=== PATIENT | male | born 1960 ===

== ENCOUNTER → 2020-11-29 09:17 | Outpatient (BNVA) | payer OTHER, SELFPAY | PROVIDERS: Visit Provider Urology ==

== ENCOUNTER → 2021-01-16 09:01 | Outpatient (BNVA) | payer OTHER, SELFPAY | PROVIDERS: Visit Provider Urology ==

== ENCOUNTER → 2022-01-01 10:52 | Outpatient (BNVA) | payer OTHER, SELFPAY | PROVIDERS: PCP Family Medicine; Visit Provider Urology | DX: Z13.89 Encounter for screening for other disorder (principal) ==

== ENCOUNTER → 2022-08-13 11:44 | Outpatient (BNVA) | payer OTHER, SELFPAY | PROVIDERS: PCP Family Medicine; Visit Provider Urology ==

== ENCOUNTER → 2022-11-17 09:16 | Outpatient (BNVA) | payer OTHER, SELFPAY | PROVIDERS: PCP Family Medicine; Visit Provider Urology ==

== ENCOUNTER 2023-01-18 08:27 | Day surgery (SDC) | payer OTHER, SELFPAY ==
[2023-01-14 10:55] VITALS: BMI 26.6
--- NOTE | 2023-01-15 12:13 | HO.ANESPROP2 ---
Documented by User: Rhonda Aparicio NP 01/15/23 12:14 HPI - Anesthesia Eval Consult details Narrative: 62yo M for Targeted Prostate Needle Biopsy PMFSH Active Problems Active Problems: All Active Problems (Updated 01/14/23 @ 10:55 by Patricia Garrett RN) Erectile dysfunction due to arterial insufficiency (Acute) Prostatitis (Acute) Elevated PSA (Acute) Bladder neck obstruction (Acute) Past Medical History Medical History Anal fissure Arthritis Bladder neck obstruction BPH (benign prostatic hyperplasia) Ejaculatory disorder Elevated PSA HX: anticoagulation Hypercholesterolemia Hyperlipidemia Incomplete emptying of bladder Pericarditis Sleep apnea Weak urinary stream Family History Family History Paternal Grandfather Prostate cancer Surgical History Surgical History History of bunionectomy History of colonoscopy History of surgery History of tonsillectomy Hx of prostate biopsy Social History Social History Are you a primary healthcare business analyst to a significant other at home: No Do you presently have visiting nurse or other home services: No Patient Tobacco Use Status: Never used Tobacco Use of substances other than those prescribed or required for medical reasons: Yes Substance Use Type Other:: 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 If so, by whom?: No Are you DNR?: No Advance Directives Information Provided: Yes (as above noted) Advance Directives on File: No Recently lost weight without trying: No Eating poorly because of decreased appetite: No Nutrition Risks: No Nutritional Risk Poor oral hygiene: No Meds Allergies Allergy/AdvReac Type Severity Reaction Status Date / Time tramadol [TRAMADOL] Allergy Unknown HIVES Verified 01/18/23 09:54 Home Medications Medication Instructions Recorded Confirmed Last Taken Type ofloxacin 0.3 % ear drops 5 drp otic (ear) right BID 01/01/22 01/14/23 Unknown History aspirin 81 mg tablet,delayed 81 mg PO DAILY 08/13/22 01/14/23 01/10/23 History release rosuvastatin 10 mg tablet 10 mg PO BEDTIME 08/13/22 01/14/23 Unknown History Exam Exam Date and Time: January 15, 2023 1213 Height,Weight and Vital Signs: Height 5 ft 8 in Weight 79.379 kg Assessment and Plan Assessment Anesthesia Assessment: Chart Reviewed Documented by User: Marleni Vaz MD 01/18/23 10:58 PMFSH Past Medical History Medical History Anal fissure Arthritis Bladder neck obstruction BPH (benign prostatic hyperplasia) Ejaculatory disorder Elevated PSA HX: anticoagulation Hypercholesterolemia Hyperlipidemia Incomplete emptying of bladder Pericarditis Sleep apnea Weak urinary stream Family History Family History Paternal Grandfather Prostate cancer Family history of problems with anesthesia: No Surgical History Surgical History History of bunionectomy History of colonoscopy History of surgery History of tonsillectomy Hx of prostate biopsy History of Problems with Anesthesia: No Social History Social History Are you a primary healthcare business analyst to a significant other at home: No Do you presently have visiting nurse or other home services: No Patient Tobacco Use Status: Never used Tobacco Use of substances other than those prescribed or required for medical reasons: Yes Substance Use Type Other:: 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 If so, by whom?: No Are you DNR?: No Advance Directives Information Provided: Yes (as above noted) Advance Directives on File: No Recently lost weight without trying: No Eating poorly because of decreased appetite: No Nutrition Risks: No Nutritional Risk Poor oral hygiene: No Meds Allergies Allergy/AdvReac Type Severity Reaction Status Date / Time tramadol [TRAMADOL] Allergy Unknown HIVES Verified 01/18/23 09:54 Home Medications Medication Instructions Recorded Confirmed Last Taken Type ofloxacin 0.3 % ear drops 5 drp otic (ear) right BID 01/01/22 01/14/23 Unknown History aspirin 81 mg tablet,delayed 81 mg PO DAILY 08/13/22 01/14/23 01/10/23 History release rosuvastatin 10 mg tablet 10 mg PO BEDTIME 08/13/22 01/14/23 Unknown History Exam Airway Mallampati Class: II TM Dist: >3cm Neck ROM: Full Heart: rrr Lungs: cta Assessment and Plan Assessment Anesthesia Assessment: Anesthesia Plan Discussed Final Anesthetic Review Family History of Problems with Anesthesia: No History of Problems with Anesthesia: No NPO: Yes ASA Class: II Final Preanesthetic Review: No Changes in Pt Med Stat, Meds/Allgs Chart Reviewed and Consent Obtained/Reviewed Patient Risk: Intermediate Procedure Risk: Intermediate Anesthetic Plan Anesthetic Plan: GA Disposition: Standard PACU
[2023-01-18 09:34] VITALS: BP 141/79; PULSE 59; RESP 15; TEMP 36.6; O2SAT 99
[2023-01-18] MEDS: Lactated Ringers 1,000 ML 100 ML IVCONT (09:55)
--- NOTE | 2023-01-18 11:29 | MHC.SHP ---
Pre-Procedural Eval Section A Date of Service: 01/18/23 The patient is an INPATIENT: No Changes since office visit: No Cold of Flu in the past 2 weeks, No New Medical Problems, No Changes in Medication and No Patient answered all questions The History & Physical has been completed within 30 days and I have reviewed it.: Yes Section B Chief Complaint: Elevated prostate specific antigen [PSA] Details of Present Illness: prior negative biopsy 1.6cm right mid gland region Relevant Family History (Specify if Yes): No Relevant Social History: None Present Medications: see Short Stay Collaborative assessment Medical History: No relevant PMH History of Previous Operations: No relevant previous surgery Allergies: Allergies Allergy/AdvReac Type Severity Reaction Status Date / Time tramadol [TRAMADOL] Allergy Unknown HIVES Verified 01/18/23 09:54 Review of Systems Sugical H&P ROS: Negative: Constitution, Cardiovascular, Respiratory, Neurological, Psychiatric, Hem-Onc, Allergic/Immunologic, Gastrointestinal, Genitourinary, Musculoskeletal, Integumentary, Endocrine and Eyes/Ears/Nose/Throat Exam Surgical H&P Exam: Normal: HEENT, Normal: Heart, Normal: Lungs, Normal: Extremities, Normal: Abdomen, Normal: Skin and Normal: Neurological Plan Diagnosis/Plan: Unchanged (mri guided biopsy) I have reviewed the history and physical and performed a pertinent physical examination on my patient. No changes have occurred unless specified. Time Spent With Patient Time: Total time managing care of this patient today ____ minutes.
--- NOTE | 2023-01-18 12:34 | W.PM.OPN ---
Operative Note Operative Note Date of Service: 01/18/23 Narrative: Preoperative diagnosis: Elevated PSA Postoperative diagnosis: Elevated PSA Procedure: 1. transrectal ultrasound measurement of prostate 2. transrectal ultrasound-guided pudendal nerve block 3. MRI-US fusion image registration performed 3. transperineal ultrasound-guided prostate biopsy 17 core including targets Surgeon: Dr. Quintin Real Anesthetic: Sedation plus local Indications for procedure: Elevated PSA prior negative biopsy - PiRads 3 leasions on MRI Procedure: After informed consent was verified, the patient was brought into the procedure area. Patient identity confirmed. Perioperative antibiotics confirmed. Safety pause time out performed. Anesthesia performed per protocol Ultrasound probe was placed per rectum [employer] software and hardware platform used An ultrasound-guided pudendal nerve block was performed using 10 cc of 1% lidocaine. 8 cc was placed at the base and 2 cc of the apex. Ultrasound placement was made with grid calibration for height and prostate diameter in both the transverse and longitudinal planes. Once grid calibration was confirmed ultrasound acquisition was performed in the transverse fashion. Three dimensional ultrasound model was created. The planned needle targeting based on prior acquisition of MRI imaging was overlaid on the ultrasound images and targets confirmed through ultrasound review. Based on pre -planning evaluation 17 targets had been identified. These included 3 targets of the PI-RADS 3 identified lesion/s. He tolerated the procedure well. Was transferred to stable condition in the PACU. Printed instructions regarding antibiotic use and common side effects such as low-grade temperature, potential infection and bleeding were given Pathology: 17 core prostate biopsy
[2023-01-18 12:40] VITALS: BP 168/100; PULSE 99; RESP 16; TEMP 36.6; O2SAT 99
[2023-01-18 12:45] VITALS: BP 152/80; PULSE 82; RESP 16; O2SAT 97
[2023-01-18 12:50] VITALS: BP 140/83; PULSE 80; RESP 16; O2SAT 98
[2023-01-18 12:55] VITALS: BP 123/68; PULSE 60; RESP 16; TEMP 36.6; O2SAT 98
== END 2023-01-18 13:53 | disposition home or self-care (01) ==
PROVIDERS: PCP Family Medicine; Visit Provider Urology
PROC: (CPT 55700; principal; 2023-01-18 11:00)
DX: R97.20 Elevated prostate specific antigen [PSA] (principal); N40.1 Benign prostatic hyperplasia with lower urinary tract symptoms; N32.0 Bladder-neck obstruction; R33.8 Other retention of urine; R39.12 Poor urinary stream; N52.01 Erectile dysfunction due to arterial insufficiency; E78.00 Pure hypercholesterolemia, unspecified; Z79.82 Long term (current) use of aspirin; Z79.51 Long term (current) use of inhaled steroids; Z79.899 Other long term (current) drug therapy; Z88.8 Allergy status to other drugs, medicaments and biological substances
CPT/HCPCS: 55700; 88305; 88344; J1100; J1956; J2405; J3010

== ENCOUNTER → 2023-01-28 10:52 | Outpatient (BNVA) | payer OTHER, SELFPAY | PROVIDERS: PCP Family Medicine; Visit Provider Urology | DX: R97.20 Elevated prostate specific antigen [PSA] (principal); N52.01 Erectile dysfunction due to arterial insufficiency; C61 Malignant neoplasm of prostate; Z98.890 Other specified postprocedural states | CPT/HCPCS: 99212; Q3014 ==

== ENCOUNTER 2023-06-04 10:23 | Outpatient (AMB) | payer OTHER, SELFPAY ==
--- NOTE | 2023-06-04 11:25 | MHC.OFFVIS ---
Intake Intake Visit Reasons: 4m/PSA(Elevated PSA/E.D)(set) Intake Note: Patient is Present for Follow Up PSA Urology Medication: Finasteride, Tadalafil Antibiotic Allergies: None Blood Thinners: Aspirin Pharmacy: [facility] Allergies tramadol [TRAMADOL] Allergy (Unknown, Verified 06/04/23 11:26) HIVES Medication List - Last Reconciled 06/04/23 by Quintin Real MD aspirin 81 mg PO DAILY finasteride 5 mg PO DAILY 90 days phenazopyridine 100 mg PO Q8H 6 doses rosuvastatin 10 mg PO BEDTIME tadalafil 5 mg PO DAILY 90 days HPI HPI Comments History of Present Illness Details Roberto PARKER is a very pleasant male. He is a patient of Dr. Dan. He is seen for the following urologic conditions. - prostate cancer - erectile dysfunction Good response to daily tadalafil regarding erections PSA dropped from 5.8-3.9, 4 month follow-up repeat Prostate cancer 01/19 PSA 5.8 grade group 1, low volume pT1c, [address] Real 01/19 - 05/22 3.9 Grade group 1, low risk, low volume, pT1c, PSA at diagnosis 5.8, multiple prior negative biopsies Pathology single core positive [place] 3 + 3 Imaging - 01/17 MRI 36 g prostate, no suspicious signal abnormalities to suggest presence of clinically significant prostate cancer. Poorly defined 1.6 cm signal abnormality posterolateral on the right in the mid gland Lower Urinary Tract Symptoms: Discussed results Current visit is for further evaluation of, lower urinary tract symptoms, predominate obstructive symptoms - symptoms stable on finasteride Prostate Symptom Score /18 , Moderate (9-19), Bother 2. Symptoms include / , incomplete emptying, weak stream, nocturia (>2), and are progressing 09/17 , incomplete emptying, weak stream, and are stable. PSA 10/17 at [place] 5.2 - 3 prior negative biopsies - 10/17 4.6, 03/16 5.2 started finasteride, 09/17 3.5, 11/17 4.6 15%, 01/18 5.8 Erectile dysfunction Responsive to Viagra 100 mg Improved response to daily tadalafil PFSH Medical History Arthritis HX: anticoagulation Sleep apnea Pericarditis Hypercholesterolemia BPH (benign prostatic hyperplasia) Anal fissure Hyperlipidemia Ejaculatory disorder Incomplete emptying of bladder Weak urinary stream Bladder neck obstruction Elevated PSA Surgical History Hx of prostate biopsy History of surgery History of bunionectomy History of tonsillectomy History of colonoscopy Family History Paternal Grandfather Prostate cancer Social History Are you a primary director of managed care to a significant other at home: No Do you presently have visiting nurse or other home services: No Patient Tobacco Use Status: Never used Tobacco Review of Systems Const Denies chills and Denies fever(s) Card Reports no additional complaints and Denies syncope Resp Denies cough GI Denies abdominal pain and Denies heartburn Reports as per HPI and Denies change in libido Neuro Denies syncope Psych Denies change in libido Endo Denies change in libido Physical Exam Const General: cooperative, healthy appearing, comfortable and no acute distress Orientation/consciousness: patient oriented x3 HEENT Face and sinus: Yes normal facial exam Mouth: moist mucous membranes Neck Neck: Yes normal visual inspection, Yes full ROM and Yes trachea midline Chest Chest palpation & inspection: normal inspection of the chest Resp Effort & Inspection: normal respiratory effort, able to speak in complete sentences and no respiratory distress GI Inspection: Yes normal to inspection Back/Spine/Pelvis Cervical Spine: normal cervical lordosis Thoracic/Lumbar Spine: thoracic and lumbar spine normal to inspection Skin General skin exam: no rashes or lesions noted Neuro General: patient oriented x3, gait normal, tone normal and moves all extremities Extrem General: Yes normal to inspection and Yes capillary refill normal Assessment & Plan Assessment & Plan (1) Erectile dysfunction due to arterial insufficiency: Code(s): N52.01 - Erectile dysfunction due to arterial insufficiency (2) Prostatitis: Code(s): N41.9 - Inflammatory disease of prostate, unspecified Qualifiers: Prostatitis type: chronic Qualified Code(s): N41.1 - Chronic prostatitis (3) Elevated PSA: Code(s): R97.20 - Elevated prostate specific antigen [PSA] Plan Four month follow-up PSA Orders: Orders PSA,Total (Free>4and<10) 05/17/23 R97.20 - Elevated prostate specific antigen [PSA] Prostate Specific Antigen 4 Months N52.01 - Erectile dysfunction due to arterial insufficiency Patient Instructions: Imaging studies, laboratory and physical exam results were discussed and reviewed in detail. No major barriers to patient understanding were identified. An opportunity to ask questions regarding the treatment plan was provided. All questions were answered. The patient expressed understanding and agreement with the above treatment plan. The patient is aware they should contact our office by phone for worsening of their current condition or the appearance of new urologic symptoms. Compliance is encouraged with any medications and followup testing that is ordered. It is a privilege to participate in the urologic care of your patient. If you have any questions or concerns regarding treatment for the above conditions, or other urologic issues, please do not hesitate to contact me. The office telephone contact is [phone]. This note is constructed using voice recognition software. While every effort has been made to ensure accuracy motorcycle repair shop supervisor errors may have been included. Yours sincerely, Dr Quintin Real MD, [facility] - Urology Providers of Expert, Compassionate Care for the Genitourinary System Coding Level of Care Code Est Pt Level 3 (25657) Diagnoses Erectile dysfunction due to arterial insufficiency N52.01 Chronic prostatitis N41.1 Prostatitis type: chronic Elevated PSA R97.20
== END 2023-06-04 12:04 | disposition home or self-care (01) ==
PROVIDERS: PCP Family Medicine; Visit Provider Urology
DX: N52.01 Erectile dysfunction due to arterial insufficiency (principal); N41.1 Chronic prostatitis; R97.20 Elevated prostate specific antigen [PSA]
CPT/HCPCS: 99213

== ENCOUNTER → 2023-06-04 10:23 | Outpatient (BNVA) | payer OTHER, SELFPAY | PROVIDERS: PCP Family Medicine; Visit Provider Urology | DX: N41.1 Chronic prostatitis (principal); N52.01 Erectile dysfunction due to arterial insufficiency; R97.20 Elevated prostate specific antigen [PSA] | CPT/HCPCS: 99212 ==

== ENCOUNTER 2023-09-29 12:32 | Outpatient (REF) | payer OTHER, SELFPAY ==
[2023-09-29 14:18] LABS: Prostate Specific Antigen 3.64 ng/mL (<0.05-4.0)
== END 2023-09-29 12:33 | disposition home or self-care (01) ==
LOC: HO.LAB 12:32
PROVIDERS: PCP Family Medicine; Visit Provider Urology
DX: N52.01 Erectile dysfunction due to arterial insufficiency (principal); Z12.5 Encounter for screening for malignant neoplasm of prostate
CPT/HCPCS: 36415; 84153

== ENCOUNTER 2023-10-05 10:34 | Outpatient (AMB) | payer OTHER, SELFPAY ==
--- NOTE | 2023-10-05 10:35 | A.OFFVIS_ITS ---
Intake Intake Visit Reasons: 4m/PSA(set) Intake Note: Patient is Present for Telephone Follow Up PSA Urology Med: Tadalafil, Finasteride Antibiotic Allergy: None Blood Thinner: Aspirin Allergies tramadol [TRAMADOL] Allergy (Unknown, Verified 10/05/23 10:36) HIVES Medication List - Last Reconciled 10/05/23 by Quintin Real MD aspirin 81 mg PO DAILY finasteride 5 mg PO DAILY 90 days phenazopyridine 100 mg PO Q8H 6 doses rosuvastatin 10 mg PO BEDTIME tadalafil 5 mg PO DAILY 90 days HPI HPI Comments History of Present Illness Details Roberto PARKER is a very pleasant male. He is a patient of Dr. Dan. He is seen for the following urologic conditions. - prostate cancer - erectile dysfunction Telemedicine Evaluation 15 min Consultation [employer] [facility] [employer] attempted Good response to daily tadalafil regarding erections and bladder emptying Noted dribbling after ran out of medication PSA remains low 3.6 Prescription refilled 4 month follow-up PSA Prostate cancer 01/19 PSA 5.8 grade group 1, low volume pT1c, [address] Real 01/19 - 05/22 3.9, 09/22 3.6 MRI ultrasound fusion biopsy 01/19 - Grade group 1, low risk, low volume, pT1c, PSA at diagnosis 5.8, multiple prior negative biopsies Pathology single core positive [place] 3 + 3 - (C) - right lateral Imaging - 01/17 MRI 36 g prostate, no suspicious signal abnormalities to suggest presence of clinically significant prostate cancer. Poorly defined 1.6 cm signal abnormality posterolateral on the right in the mid gland Lower Urinary Tract Symptoms: Discussed results Current visit is for further evaluation of, lower urinary tract symptoms, predominate obstructive symptoms - symptoms stable on finasteride Prostate Symptom Score 10/17 , Moderate (9-19), Bother 2. Symptoms include 10/17 , incomplete emptying, weak stream, nocturia (>2), and are progressing 09/17 , incomplete emptying, weak stream, and are stable. PSA 10/17 at [place] 5.2 - 3 prior negative biopsies - 10/17 4.6, 03/16 5.2 started finasteride, 09/17 3.5, 11/17 4.6 15%, 01/18 5.8 Erectile dysfunction Responsive to Viagra 100 mg Improved response to daily tadalafil PFSH Medical History (Updated 10/05/23 @ 10:41 by Quintin Real MD) Arthritis HX: anticoagulation Sleep apnea Pericarditis Hypercholesterolemia BPH (benign prostatic hyperplasia) Anal fissure Hyperlipidemia Ejaculatory disorder Incomplete emptying of bladder Weak urinary stream Bladder neck obstruction Elevated PSA Surgical History Hx of prostate biopsy History of surgery History of bunionectomy History of tonsillectomy History of colonoscopy Family History Paternal Grandfather Prostate cancer Social History Are you a primary team primary care physician to a significant other at home: No Do you presently have visiting nurse or other home services: No Patient Tobacco Use Status: Never used Tobacco Review of Systems Const All systems reviewed & are unremarkable except as noted in HPI and below Reports no additional complaints Resp Reports no additional complaints GI Reports no additional complaints Reports as per HPI Musc Reports no additional complaints Physical Exam Telemedicine evaluation Appropriate responses Regular breathing rate and rhythm HEENT Head: Yes normal to inspection Ears: hearing grossly normal bilaterally Eyes General: appearance normal, both eyes and all related structures Neck Neck: Yes normal visual inspection Chest Chest palpation & inspection: normal inspection of the chest Resp Effort & Inspection: normal respiratory effort and able to speak in complete sentences Assessment & Plan Assessment & Plan (1) Prostate cancer: Code(s): C61 - Malignant neoplasm of prostate (2) Erectile dysfunction due to arterial insufficiency: Code(s): N52.01 - Erectile dysfunction due to arterial insufficiency (3) Weak urinary stream: Code(s): R39.12 - Poor urinary stream (4) Urinary hesitancy due to benign prostatic hyperplasia: Code(s): N40.1 - Benign prostatic hyperplasia with lower urinary tract symptoms; R39.11 - Hesitancy of micturition Plan Four month follow-up Orders: Orders Prostate Specific Antigen 4 Months C61 - Malignant neoplasm of prostate Medications: Refilled tadalafil 5 mg PO DAILY 90 tabs 1RF prostate 90 days N52.01 - Erectile dysfunction due to arterial insufficiency Patient Instructions: Imaging studies, laboratory and physical exam results were discussed and reviewed in detail. No major barriers to patient understanding were identified. An opportunity to ask questions regarding the treatment plan was provided. All questions were answered. The patient expressed understanding and agreement with the above treatment plan. The patient is aware they should contact our office by phone for worsening of their current condition or the appearance of new urologic symptoms. Compliance is encouraged with any medications and followup testing that is ordered. It is a privilege to participate in the urologic care of your patient. If you have any questions or concerns regarding treatment for the above conditions, or other urologic issues, please do not hesitate to contact me. The office telephone contact is [phone]. This note is constructed using voice recognition software. While every effort has been made to ensure accuracy filtration supervisor errors may have been included. Yours sincerely, Dr Quintin Real MD, [facility] - Urology Providers of Expert, Compassionate Care for the Genitourinary System Telehealth Telehealth Location of provider rendering services: practice address Location of patient: address on file Patient Identification confirmed using: Name, : Yes Telehealth method: video Patient verbally consented to treatment: Yes Patient verbally consented to billing insurance company: Yes Patient informed of any privacy concerns related to visit: Yes Coding Level of Care Code Tele Est Pt Level 4 (95724) Diagnoses Prostate cancer C61 Erectile dysfunction due to arterial insufficiency N52.01 Weak urinary stream R39.12 Urinary hesitancy due to benign prostatic hyperplasia N40.1; R39.11
== END 2023-10-05 11:03 | disposition home or self-care (01) ==
LOC: HO.HUSH 10:34
PROVIDERS: PCP Family Medicine; Visit Provider Urology
DX: N40.1 Benign prostatic hyperplasia with lower urinary tract symptoms (principal); C61 Malignant neoplasm of prostate; N52.01 Erectile dysfunction due to arterial insufficiency; R39.12 Poor urinary stream; R39.11 Hesitancy of micturition
CPT/HCPCS: 99213

== ENCOUNTER → 2023-10-05 10:34 | Outpatient (BNVA) | payer OTHER, SELFPAY | PROVIDERS: PCP Family Medicine; Visit Provider Urology ==

== ENCOUNTER 2024-02-04 10:49 | Outpatient (AMB) | payer OTHER, SELFPAY ==
--- NOTE | 2024-02-04 11:14 | A.OFFVIS_ITS ---
Intake Visit Reasons: 4m/PSA(set) Intake Note: Patient is Present for Follow Up Urology Medication:Finasteride, Tadalafil Antibiotic Allergies: None Blood Thinners:Aspirin Allergies tramadol [TRAMADOL] Allergy (Unknown, Verified 10/05/23 10:36) HIVES HPI Comments Details: Roberto PARKER is a very pleasant male. He is a patient of Dr. Dan. He is seen for the following urologic conditions. - prostate cancer - erectile dysfunction PSA remains stable 3.4 Continue with cycling finasteride 1 month on, 1 month off Six-month follow-up PSA Remains on daily tadalafil 5 mg for erections - mostly effective. Occasionally unable to get erection. PSA happened when he has fatigue. Discussed proper recovery in 48 hours prior. May use on demand as required. We will provide 10 mg to use on demand if he calls Prostate cancer 01/19 PSA 5.8 grade group 1, low volume pT1c, [address] Real 01/19 - 05/22 3.9, 09/22 3.6, 01/20 3.4 MRI ultrasound fusion biopsy 01/19 - Grade group 1, low risk, low volume, pT1c, PSA at diagnosis 5.8, multiple prior negative biopsies Pathology single core positive [place] 3 + 3 - (C) - right lateral Imaging - 01/17 MRI 36 g prostate, no suspicious signal abnormalities to suggest presence of clinically significant prostate cancer. Poorly defined 1.6 cm signal abnormality posterolateral on the right in the mid gland Lower Urinary Tract Symptoms: Discussed results Current visit is for further evaluation of, lower urinary tract symptoms, predominate obstructive symptoms - symptoms stable on finasteride Prostate Symptom Score 2/18 , Moderate (9-19), Bother 2. Symptoms include / , incomplete emptying, weak stream, nocturia (>2), and are progressing 09/17 , incomplete emptying, weak stream, and are stable. PSA 10/17 at [place] 5.2 - 3 prior negative biopsies - 10/17 4.6, 03/16 5.2 started finasteride, 09/17 3.5, 11/17 4.6 15%, 01/18 5.8 Erectile dysfunction Responsive to Viagra 100 mg Improved response to daily tadalafil [facility] Medical History (Updated 10/05/23 @ 10:41 by Quintin Real MD) Arthritis HX: anticoagulation Sleep apnea Pericarditis Hypercholesterolemia BPH (benign prostatic hyperplasia) Anal fissure Hyperlipidemia Ejaculatory disorder Incomplete emptying of bladder Weak urinary stream Bladder neck obstruction Elevated PSA Surgical History Hx of prostate biopsy History of surgery History of bunionectomy History of tonsillectomy History of colonoscopy Family History Paternal Grandfather Prostate cancer Social History Are you a primary career guidance counselor to a significant other at home: No Do you presently have visiting nurse or other home services: No Patient Tobacco Use Status: Never used Tobacco Review of Systems Const Denies chills and Denies fever(s) Card Reports no additional complaints and Denies syncope Resp Denies cough GI Denies abdominal pain and Denies heartburn Reports as per HPI and Denies change in libido Neuro Denies syncope Psych Denies change in libido Endo Denies change in libido Physical Exam Const General: cooperative, healthy appearing, comfortable and no acute distress Orientation/consciousness: patient oriented x3 HEENT Face and sinus: Yes normal facial exam Mouth: moist mucous membranes Neck Neck: Yes normal visual inspection, Yes full ROM and Yes trachea midline Chest Chest palpation & inspection: normal inspection of the chest Resp Effort & Inspection: normal respiratory effort, able to speak in complete sent ences and no respiratory distress GI Inspection: Yes normal to inspection Back/Spine/Pelvis Cervical Spine: normal cervical lordosis Thoracic/Lumbar Spine: thoracic and lumbar spine normal to inspection Skin General skin exam: no rashes or lesions noted Neuro General: patient oriented x3, gait normal, tone normal and moves all extremities Extrem General: Yes normal to inspection and Yes capillary refill normal Assessment & Plan Assessment & Plan (1) Prostate cancer: Code(s): C61 - Malignant neoplasm of prostate Category: Medical (2) Erectile dysfunction due to arterial insufficiency: Code(s): N52.01 - Erectile dysfunction due to arterial insufficiency Category: Medical Plan Six-month follow-up PSA Orders: Orders Prostate Specific Antigen 6 Months C61 - Malignant neoplasm of prostate Medications: Refilled tadalafil 5 mg PO DAILY 90 days 90 tabs 1RF prostate N52.01 - Erectile dysfunction due to arterial insufficiency Patient Instructions: Imaging studies, laboratory and physical exam results were discussed and reviewed in detail. No major barriers to patient understanding were identified. An opportunity to ask questions regarding the treatment plan was provided. All questions were answered. The patient expressed understanding and agreement with the above treatment plan. The patient is aware they should contact our office by phone for worsening of their current condition or the appearance of new urologic symptoms. Compliance is encouraged with any medications and followup testing that is ordered. It is a privilege to participate in the urologic care of your patient. If you have any questions or concerns regarding treatment for the above conditions, or other urologic issues, please do not hesitate to contact me. The office telephone contact is [phone]. This note is constructed using voice recognition software. While every effort has been made to ensure accuracy erecting engineer errors may have been included. Yours sincerely, Dr Quintin Real MD, [facility] - Urology Providers of Expert, Compassionate Care for the Genitourinary System Coding Level of Care Code Est Pt Level 4 (87957) Diagnoses Prostate cancer C61 Erectile dysfunction due to arterial insufficiency N52.01
== END 2024-02-04 11:36 | disposition home or self-care (01) ==
PROVIDERS: PCP Family Medicine; Visit Provider Urology
DX: C61 Malignant neoplasm of prostate (principal); N52.01 Erectile dysfunction due to arterial insufficiency
CPT/HCPCS: 99214

== ENCOUNTER → 2024-02-04 10:49 | Outpatient (BNVA) | payer OTHER, SELFPAY | PROVIDERS: PCP Family Medicine; Visit Provider Urology | DX: N52.01 Erectile dysfunction due to arterial insufficiency (principal); C61 Malignant neoplasm of prostate | CPT/HCPCS: 99212 ==

== ENCOUNTER 2024-09-27 08:18 | Outpatient (AMB) | payer OTHER, SELFPAY ==
--- NOTE | 2024-09-27 08:41 | MHC.OFFVIS ---
Intake Visit Reasons: 6M PVR/PSA(set) Intake Note: Patient is present for 6M/PSA/PVR Urology Medication:FINASTERIDE,TADALAFIL Antibiotic Allergy:NONE Blood Thinner:ASPIRIN TODAY'SPVR:0ML'S Insurance Claims Clerk Required: No Allergies tramadol [TRAMADOL] Allergy (Unknown, Verified 09/27/24 08:42) HIVES HPI Comments Details: Roberto PARKER is a very pleasant male. He is a patient of Dr. Dan. He is seen for the following urologic conditions. - prostate cancer - erectile dysfunction PSA slight rise 3.8 Plan for three-month follow-up PSA and repeat MRI Remains on daily tadalafil 5 mg for erections - mostly effective. Occasionally unable to get erection. PSA happened when he has fatigue. Discussed proper recovery in 48 hours prior. May use on demand as required. We will provide 10 mg to use on demand if he calls Prostate cancer 01/19 PSA 5.8 grade group 1, low volume pT1c, [address] Real 01/19 - 05/22 3.9, 09/22 3.6, 01/20 3.4, 08/22 3.8 MRI ultrasound fusion biopsy 01/19 - Grade group 1, low risk, low volume, pT1c, PSA at diagnosis 5.8, multiple prior negative biopsies Pathology single core positive [place] 3 + 3 - (C) - right lateral Imaging - 01/17 MRI 36 g prostate, no suspicious signal abnormalities to suggest presence of clinically significant prostate cancer. Poorly defined 1.6 cm signal abnormality posterolateral on the right in the mid gland Lower Urinary Tract Symptoms: Discussed results Current visit is for further evaluation of, lower urinary tract symptoms, predominate obstructive symptoms - symptoms stable on finasteride Prostate Symptom Score 10/17 , Moderate (9-19), Bother 2. Symptoms include 10/17 , incomplete emptying, weak stream, nocturia (>2), and are progressing 09/17 , incomplete emptying, weak stream, and are stable. PSA 10/17 at [place] 5.2 - 3 prior negative biopsies - 10/17 4.6, 03/16 5.2 started finasteride, 09/17 3.5, 11/17 4.6 15%, 01/18 5.8 Erectile dysfunction Responsive to Viagra 100 mg Improved response to daily tadalafil [facility] Medical History (Updated 10/05/23 @ 10:41 by Quintin Real MD) Arthritis HX: anticoagulation Sleep apnea Pericarditis Hypercholesterolemia BPH (benign prostatic hyperplasia) Anal fissure Hyperlipidemia Ejaculatory disorder Incomplete emptying of bladder Weak urinary stream Bladder neck obstruction Elevated PSA Surgical History Hx of prostate biopsy History of surgery History of bunionectomy History of tonsillectomy History of colonoscopy Family History Paternal Grandfather Prostate cancer Social History Are you a primary career based intervention coordinator to a significant other at home: No Do you presently have visiting nurse or other home services: No Patient Tobacco Use Status: Never used Tobacco Review of Systems Const Denies chills and Denies fever(s) Card Reports no additional complaints and Denies syncope Resp Denies cough GI Denies abdominal pain and Denies heartburn Reports as per HPI and Denies change in libido Neuro Denies syncope Psych Denies change in libido Endo Denies change in libido Physical Exam Const General: cooperative, healthy appearing, comfortable and no acute distress Orientation/consciousness: patient oriented x3 HEENT Face and sinus: Yes normal facial exam Mouth: moist mucous membranes Neck Neck: Yes normal visual inspection, Yes full ROM and Yes trachea midline Chest Chest palpation & inspection: normal inspection of the chest Resp Effort & Inspection: normal respiratory effort, able to speak in complete sentences and no respiratory distress GI Inspection: Yes normal to inspection Back/Spine/Pelvis Cervical Spine: normal cervical lordosis Thoracic/Lumbar Spine: thoracic and lumbar spine normal to inspection Skin General skin exam: no rashes or lesions noted Neuro General: patient oriented x3, gait normal, tone normal and moves all extremities Extrem General: Yes normal to inspection and Yes capillary refill normal Office Procedures Post Void Residual Post Residual Void Post Void Residual (PVR): 0 [id number]-[id number] Void Residual by ultrasound Results AMB Urinalysis, Automated UA Leukoctes 0 Bossman/uL Last Edit by ALLIE Otero on 09/27/24 09:15 UA Nitrite Negative Last Edit by ALLIE Otero on 09/27/24 09:15 UA Urobilinogen 0.2 mg/dL Last Edit by ALLIE Otero on 09/27/24 09:15 UA Protein 0 mg/dL Last Edit by ALLIE Otero on 09/27/24 09:15 UA pH 6.0 Last Edit by ALLIE Otero on 09/27/24 09:15 UA Blood 0 David/uL Last Edit by ALLIE Otero on 09/27/24 09:15 UA Specific [place] 1.010 Last Edit by ALLIE Otero on 09/27/24 09:15 UA Ketone Negative Last Edit by ALLIE Otero on 09/27/24 09:15 UA Bilirubin 0 mg/dL Last Edit by ALLIE Otero on 09/27/24 09:15 UA Glucose 0 mg/dL Last Edit by ALLIE Otero on 09/27/24 09:15 Results Reviewed Results Reviewed: Laboratory Last Values Urine pH (Auto) 6.0 09/27/24 09:14 Specific [place] (Auto) 1.010 09/27/24 09:14 Urine Protein (Auto) 0 mg/dL 09/27/24 09:14 Glucose (UA)(Auto) 0 mg/dL 09/27/24 09:14 Urine Ketones (Auto) Negative 09/27/24 09:14 Urine Blood (Auto) 0 David/uL 09/27/24 09:14 Urine Nitrite (Auto) Negative 09/27/24 09:14 Urine Bilirubin (Auto) 0 mg/dL 09/27/24 09:14 Urine Urobilinogen (Auto) 0.2 mg/dL 09/27/24 09:14 Leukocyte Esterase (Auto) 0 Bossman/uL 09/27/24 09:14 Assessment & Plan Assessment & Plan (1) Erectile dysfunction due to arterial insufficiency: Code(s): N52.01 - Erectile dysfunction due to arterial insufficiency Category: Medical (2) Prostate cancer: Code(s): C61 - Malignant neoplasm of prostate Category: Medical Plan Three-month follow-up imaging and PSA Orders: Orders AMB Urinalysis Automated Today Z13.9 - Encounter for screening, unspecified Prostate Specific Antigen 3 Months C61 - Malignant neoplasm of prostate MR Prostate wo/w con 3 Months C61 - Malignant neoplasm of prostate Patient Instructions: Imaging studies, laboratory and physical exam results were discussed and reviewed in detail. No major barriers to patient understanding were identified. An opportunity to ask questions regarding the treatment plan was provided. All questions were answered. The patient expressed understanding and agreement with the above treatment plan. The patient is aware they should contact our office by phone for worsening of their current condition or the appearance of new urologic symptoms. Compliance is encouraged with any medications and followup testing that is ordered. It is a privilege to participate in the urologic care of your patient. If you have any questions or concerns regarding treatment for the above conditions, or other urologic issues, please do not hesitate to contact me. The office telephone contact is [phone]. This note is constructed using voice recognition software. While every effort has been made to ensure accuracy designer architect errors may have been included. Yours sincerely, Dr Quintin Real MD, [facility] - Urology Providers of Expert, Compassionate Care for the Genitourinary System Coding Level of Care Code Est Pt Level 3 (93852) Diagnoses Erectile dysfunction due to arterial insufficiency N52.01 Prostate cancer C61 CPT Codes Post Residual Void - PVR CPT Code: 57634-Klva Void Residual by ultrasound ([id number])
== END 2024-09-27 09:57 | disposition home or self-care (01) ==
PROVIDERS: PCP Family Medicine; Visit Provider Urology
DX: N52.01 Erectile dysfunction due to arterial insufficiency (principal); C61 Malignant neoplasm of prostate; Z13.9 Encounter for screening, unspecified
CPT/HCPCS: 99213

== ENCOUNTER → 2024-09-27 08:18 | Outpatient (BNVA) | payer OTHER, SELFPAY | PROVIDERS: PCP Family Medicine; Visit Provider Urology | DX: N52.01 Erectile dysfunction due to arterial insufficiency (principal); C61 Malignant neoplasm of prostate | CPT/HCPCS: 51798; 81003; 99212 ==

== ENCOUNTER 2024-11-30 08:51 | Outpatient (REF) | payer OTHER, SELFPAY ==
--- OUTSIDE RECORDS SUMMARY | 2024-11-30 09:03 | XMS_ITS | Encounter Summary ---
Author Name [facility] Organization [facility] [place] [facility] [place] Address [address] [place] [id number] Care Team Providers Care Digital Production Operator Name Role Phone KEON VILLAVICENCIO Primary Care Provider Unavailabl e Insurance Providers: All historical and current Section Date Range: From patient's date of to the date document was created. This section includes the names of all active insurance providers for the patient. Insurance Provider Type of Coverage Plan Name Start of Policy Coverage End of Policy Coverage Group Number Member ID Insurance Provider's Telephone Number Policy Herring's Name Patient's Relationship to Policy Herring [facility] MEDICAID MEDICAID MEDIC AID Aug 30, 2014 MEDICAI D [id number] JARON PARKER PATIENT Selected Encounter This section includes the information on record at [place] for the Encounter. Date/Time Encounter Type Encounter Description Reason Provider Source January 26, 2024 09:30 AM OFFICE O/P EST LOW 20 MIN PRIMARY CARE/MEDICINE ICD-10-CM E78.5 Hyperlipidemia, unspecified KEON VILLAVICENCIO Encounter Template Text not used by [place] Assessments - Encounter Diagnoses This section includes the primary and secondary diagnoses documented for the Encounter. Date/Time Primary/Secondary Diagnosis Diagnosis Name Provider Source January 26, 2024 09:46 AM PRIMARY Hyperlipidemia, unspecified KEON VILLAVICENCIO January 26, 2024 09:46 AM SECONDARY Nontoxic single thyroid nodule KEON VILLAVICENCIO January 26, 2024 09:46 AM SECONDARY Prediabetes KEON VILLAVICENCIO Plan of Treatment: Future Appointments (+ 6 months) and Future Tests (+/- 45 days) The Plan of Treatment section includes future care activities for the patient from all [facility] treatmentfacilities. This section includes future appointments and future orders which are active, pending or scheduled. Future Appointments This section includes appointments that were scheduled to occur 6 months from the date of the Encounter, up to a maximum of 20 appointments. The data comes from all [place] treatment facilities. Appointment Date/Time Appointment Type Appointme nt Facility Name Feb 04, 2024 11:30 AM [facility]UL[facility] Feb 09, 2024 10:00 AM AMBULATORY - PSYCHIATRY [facility] Mar 08, 2024 10:00 AM AMBULATORY PS[facility]CH[facility]RY [facility] Apr 12, 2024 10:00 AM AMBULATORY [facility]RY [facility] May 03, 2024 09:00 AM AMBULATORY [facility] Jun 21, 2024 02:00 PM AMBULATORY PS[facility]CHI[facility]RY [facility] Jul 12, 2024 08:15 AM AMBULATORY [facility] Lab Results: +/- 30 days of the encounter This section includes the Chemistry and Hematology Lab Results on record with VA for the patient. Radiology Reports and Pathology Reports are provided separately, in subsequent sections. Lab Results This section contains the Chemistry/Hematology Results that were resulted 30 days before or 30 daysafter the date of the Encounter. Date/Time Source Result Type Result - Unit Interpretation Reference Range Comment January 14, 2024 07:32 AM [facility] THYROID T4 FREE(FT4) (WROX) Specimen Type: SERUM No comment entered. Ordering Provider: KEON VILLAVICENCIO Report Released Date/Time: Jul 28, 2023 05:50 AM Reporting Lab: [facility] [address] [facility] [address] Performing Lab: [facility] [address] [facility] [address] THYROID T4 FREE(FT4) (WROX) 1.03 ng/dL 0.6-1.6 January 14, 2024 07:32 AM [facility] TSH Specimen Type: SERUM No comment entered. Ordering Provider: KEON VILLAVICENCIO Report Released Date/Time: Jul 28, 2023 05:50 AM Reporting Lab: [facility] [address] [facility] [address] Performing Lab: [facility] [address] [facility] [address] TSH 2.02 u[IU]/mL 0.35-5.00 January 14, 2024 07:32 AM [facility] LIPID PANEL FASTING Specimen Type: SERUM No comment entered. Ordering Provider: KEON VILLAVICENCIO Report Released Date/Time: Jul 28, 2023 05:50 AM Reporting Lab: [address] [address] Performing Lab: [address] [address] CHOLESTEROL 179 mg/dL TRIGLYCERIDE 69 mg/dL 0-150 LDL calculated 86 mg/dL 0-129 CHOL/HDL 2.3 HDL CHOLESTEROL 79 mg/dL H 40-60 January 14, 2024 07:32 AM [facility] LIVER FUNCTION Specimen Type: SERUM No comment entered. Ordering Provider: KEON VILLAVICENCIO Report Released Date/Time: Jul 28, 2023 05:50 AM Reporting Lab: [address] [address] Performing Lab: [address] [address] PROTEIN,TOTAL 7.7 g/dL 6.0-8.3 ALBUMIN 4.2 g/dL 3.5-5.0 ALKALINE PHOSPHATASE 54 U/L 40-150 AST 22 U/L 5-34 ALT 22 U/L BILIRUBIN, TOTAL 0.5 mg/dL 0.2-1.2 January 14, 2024 07:32 AM [facility] GLUCOSE FASTING Specimen Type: SERUM No comment entered. Ordering Provider: KEON VILLAVICENCIO Report Released Date/Time: Jul 28, 2023 05:50 AM Reporting Lab: [address] [address] Performing Lab: [address] [address] GLUCOSE 101 mg/dL H 65-100 January 14, 2024 07:32 AM [facility] HEMOGLOBIN A1C PANEL Specimen Type: BLOOD Comment: Values obtained from A1C measurements can vary. For atypical A1C assays, a reported value of 7.0 could actually be between 6.72 and 7.28 if measured by a reference method. A reported value of 9.0 could actually be between 8.73 and 9.27. Ref: http://www.ngs p.org/CAPdata. asp Ordering Provider: KEON VILLAVICENCIO Report Released Date/Time: Jul 28, 2023 05:50 AM Reporting Lab: [facility] [address] [facility] [address] Performing Lab: [address] [address] HEMOGLOBIN A1C 5.5 4.0-5.6 January 14, 2024 07:32 AM [facility] GAMMA-GTP Specimen Type: SERUM No comment entered. Ordering Provider: KEON VILLAVICENCIO Report Released Date/Time: Jul 28, 2023 05:50 AM Reporting Lab: [facility] [address] [facility] [address] Performing Lab: [facility] [address] [facility] [address] GAMMA-GTP 23 U/L 10-65 Social History: Smoking Status (Most current) and Tobacco Use (All prior to encounter date) This section includes the most current, and the historical, smoking and tobacco- related health factors from the [place] facility where the Encounter took place. Current Smoking Status This section includes the most current smoking, or tobacco-related health factor, from the [place] facility where the Encounter took place. Date/Time Current Smoking Status Comment Onelia chance Jul 06, 2023 09:00 AM [place]-TOBAC[place] NEVER USED [facility] Tobacco Use History This section includes a history of the smoking, or tobacco-related health factors, that were collected on or before the date of the Encounter. The data comes from the [place] facility where the Encounter took place. Date/Time Smoking Status/Tobacco Use Comment F acility Jul 28, 2022 11:30 AM [facility]-TOBACCO NEVER USED [facility] Jul 15, 2021 09:00 AM VA-TOBACCO NEVER USED [facility] Oct 05, 2018 10:22 AM VA-TOBACCO NEVER USED [facility] Aug 13, 2017 12:59 PM QUIT TOBACCO USE > 7 YEARS AGO quit cigarettes after the but does smoke marijuana [facility] Advance Directives: All historical and current Section Date Range: From patient's date of to the date document was created. This section includes ALL of a patient's completed or amended [place] Advance and Rescinded Directives. The entries below indicate that a directive exists for the patient, but an actual copy is not included with this document. The data comes from all [place] facilities. Date Advance Directives Provider Source Oct 28, 2017 ADVANCE DIRECTIVE MARI DENNEY IELD Encounter Notes: All associated encounter notes This section contains the clinical notes associated to the Encounter. Date/Time Encounter Note(s) Provider Source January 26, 2024 09:41 AM PREVENTIVE MEDICIN E NURSING NOTE: LOCAL TITLE: CLINICAL REMINDERS/NURSING STANDARD TITLE: PREVENTIVE MEDICINE NURSING NOTE DATE OF NOTE: JANUARY 26, 2024@09:41 ENTRY DATE: JANUARY 26, 2024@09:41:28 AUTHOR: KALLI TRIVEDI COSIGNER: URGENCY: STATUS: COMPLETED COVID-19 Immunization: Refused Moderna Monovalent COVID-19 vaccine Immunization: COVID-19 (MODERNA), MRNA, LNP-S, PF, 50 MCG/0.5 ML (AGES 12+ YEARS) Refusal Reason: PATIENT DECISION Patient refuses all immunization(s) in the COVID-19 group Date Documented: 01/26/24 09:42 Refused Pfizer Monovalent COVID-19 vaccine Immunization: COVID-19 (PFIZER), MRNA, LNP-S, PF, TOM-SUCROSE, 30 MCG/0.3 ML (AGES 12+ YEARS) Refusal Reason: PATIENT DECISION Patient refuses all immunization(s) in the COVID-19 group Date Documented: 01/26/24 09:42 Refused Novavax COVID-19 vaccine Immunization: COVID-19 (NOVAVAX), SUBUNIT, RS-NANOPARTICLE, ADJUVANTED, PF, 5 MCG/0.5 ML (AGES 12+ YEARS) Refusal Reason: PATIENT DECISION Patient refuses all immunization(s) in the COVID-19 group Date Documented: 01/26/24 09:42 Herpes Zoster (Shingles) Vaccine: The patient declines to receive the recommended dose of zoster (shingles) vaccine. Immunization: ZOSTER RECOMBINANT Refusal Reason: PATIENT DECISION Patient refuses all immunization(s) in the ZOSTER group Date Documented: 01/26/24 09:43 RHS Screen: RHS Screen Session Format: Face to Face Environmental Check Upon inquiry, the individual reports that the environment is safe to proceed. Informed Consent to Screen and Document The individual consents to proceed with screening. The individual consents to documentation of responses. PRIMARY SCREEN: In the past 12 months, how often did a current or former intimate partner (e.g., boyfriend, girlfriend, , , sexual partner): 1. Scream or curse at you Never 2. Insult or talk down to you Never 3. Threaten you with harm Never 4. Physically hurt you Never 5. Force or pressure you to have sexual contact against your will, or when you were unable to say no Never ?? The HITS tool (items 1-4 above) is [place] copyright protected by Morales Hart MD, and the user has full rights to use it throughout the [place] system. PRIMARY SCREEN RESULT: The Primary Screen is NEGATIVE. The individual answered never to all forms of IPV above (i.e., answered never to all 5 items) The individual accepts education and/or resources: No EDUCATION: The individual indicated readiness to learn. Education offered during this session as noted above. The individual indicated understanding by asking relevant questions and making appropriate comments. No barriers to learning were observed or identified. /isak/ KALLI TRIVEDI LPN PACT 10 Signed: 01/26/2024 09:45 KALLI TRIVEDI January 26, 2024 05:59 AM PHYSICIAN NOTE: LOCAL TITLE: NOTE STANDARD TITLE: PHYSICIAN NOTE DATE OF NOTE: JANUARY 26, 2024@05:59 ENTRY DATE: JANUARY 26, 2024@05:59:05 AUTHOR: KEON VILLAVICENCIO EXP COSIGNER: URGENCY: STATUS: COMPLETED HISTORY OF PRESENT ILLNESS: JARON ADAM PARKER, is a 63 yo MALE [place], who presents at the [facility] for f/u to hyperlipidemia, prediabetes, elevated LFT's, and abnorma TSH levels. Labs completed. Active problems - Computerized Problem List is the source for the followin. Chronic Post-Traumatic Stress Disorder 2. Exposure to potentially hazardous substance 3. Thyroid nodule 4. History of TIA 5. Prediabetes 6. Intermittent explosive disorder 7. Cocaine user 8. Alcohol abuse 9. Benign prostatic hypertrophy 10. Sleep apnea 11. Colonoscopy Screening 12. Cervicalgia 13. Elevated PSA 14. Plantar fasciitis 15. Insomnia 16. Hypercholesterolemia 17. Anal fissure 18. Diverticular disease 19. Multiple nodules of lung 20. Chronic pain The following VA and Non-VA meds were reconciled with patient: Active Outpatient Medications (including Supplies): Issue Date Status Last Fill Active Outpatient Medications Refills Expiration ======= 1) FINASTERIDE 5MG TAB Qty: 90 for 90 days ACTIVE Issu:03-29-23 Sig: TAKE ONE TABLET BY MOUTH ONCE Refills: 0 Last:01-21-24 DAILY Expr:03-29-24 Start Date Active Non-VA Medications Refills Expiration ======= 1) Non-VA TADALAFIL 5MG TAB SiMG BY ACTIVE MOUTH ONCE DAILY NEEDED 2 Total Medications ALLERGIES: ========= TRAMADOL LAB HISTORY: CHEM 7 TREND Collection DT Spec GLUCOSE BUN CREATIN Sodium K+/Pot CL CO2 01/14/2024 07:32 SERUM 101 H 06/28/2023 07:32 SERUM 95 15 1.03 140 4.5 105 25 07/21/2022 07:33 SERUM 95 18 1.12 142 4.4 105 28 07/11/2021 07:22 SERUM 94 13 1.11 144 4.1 110 23 07/11/2020 07:45 SERUM 96 15 1.14 143 4.4 106 29 HEMOGLOBIN A1C TREND Collection DT Spec HGBA1c 01/14/2024 07:32 BLOOD 5.5 06/28/2023 07:32 BLOOD 5.9 H 07/21/2022 07:33 BLOOD 5.8 H 07/11/2021 07:22 BLOOD 5.6 07/11/2020 07:45 BLOOD 5.7 H LIPID PANEL TREND Collection DT Spec CHOL HDL CHO/HDL LDL-c TRIG 01/14/2024 07:32 SERUM 179 79 H 2.3 86 69 06/28/2023 07:32 SERUM 142 43 3.3 82 83 07/21/2022 07:33 SERUM 171 67 H 2.6 87 85 07/11/2021 07:22 SERUM 229 H 82 H 2.8 120 134 07/11/2020 07:45 SERUM 202 H 81 H 2.5 101 102 LIVER PANEL TREND Collection DT Spec AST ALT T BILI ALK TROY T. PROT ALBUMIN 01/14/2024 07:32 SERUM 22 22 0.5 54 7.7 4.2 07/26/2023 07:31 SERUM 45 H 90 H 0.4 77 7.4 4.0 06/28/2023 07:32 SERUM 51 H 83 H 0.5 85 7.5 4.0 07/21/2022 07:33 SERUM 20 23 0.6 50 7.6 4.3 07/11/2021 07:22 SERUM 21 19 0.3 63 7.3 4.0 Collection DT Spec TSH 01/14/2024 07:32 SERUM 2.02 HISTORY: PERIOD OF SERVICE - [facility] FROM Feb TO Mar COMBAT SERVICE INDICATED: No VITAL SIGNS: Blood Pressure 131/82 (01/26/2024 09:40) Pulse 60 (01/26/2024 09:40) Respiration 18 (01/26/2024 09:40) Pulse Oximetry 99% (01/26/2024 09:40) Temperature 98.8 F [37.1 C] (01/26/2024 09:40) Pain 0 (01/26/2024 09:40) Height 68 in [172.7 cm] (01/26/2024 09:40) Weight 171.6 lb [77.84 kg] (01/26/2024 09:40) BMI BMI: 26.1 REVIEW OF SYSTEMS: ENT: No sore throat, no cough CARDIOVASCULAR: No chest pain, no palpitations RESPIRATORY: No SOB, no wheezing GASTROINTESTINAL: No abd pain, no N/V/D MUSCULOSKELETAL: No joint pain, no joint swelling NEUROLOGIC: No H/A, no numbness, no weakness, no tingling EXAMINATION: GENERAL: WD/WN , pleasant & in NAD HEENT: Moist mucosa NECK: Supple, no carotid bruits HEART: RRR, S1-S2, no murmurs LUNGS: CTA B/L, no wheezes ABDOMEN: Soft, NT/ND, no HSM, + BS x 4 Quads PERIPH PULSES: 2+ B/L EXTREMITIES: FROM x 4, no edema ASSESSMENT/PLAN: 1. Hyperlipidemia: well controlled on rosuvastatin 10mg/QHS Collection DT Spec CHOL HDL CHO/HDL LDL-c TRIG 01/14/2024 07:32 SERUM 179 79 H 2.3 86 69 06/28/2023 07:32 SERUM 142 43 3.3 82 83 2. Elevated LFT's: resolved 3. Prediabetes: improved, advised to reduce carbs/simple sugars in diet FBS 101 (95) - A1c 5.55 (5.9%) 4. 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 Single upper pole 0.8 cm in greatest dimension solid, hypoechoic, taller than wide, ill-defined nodule with no echogenic foci equaling TI-RADS level 5: Highly suspicious with no FNA recommended but with sonographic follow-up recommended annually for 5 years due to size. Normal volume is 7-11 cc/lobe. Volume = L x H x W x 0.52. Differences in technique can preclude direct comparisons. FOLLOW UP: 6 mths - AWE - FBW prior ========= UPCOMING APPOINTMENTS: 02/09/2024 10:00 CWM/SO/GUSTAVO/ISAAC No barriers; Patient understands and agrees to current treatment plan. If pt has any questions, concerns, or changes in current health status he/she will call or come in to the VA. Medication Reconciliation: Outpatient: Has the patient been taking medications as documented in the EMLR? YES: The patient has been taking medications as documented in the EMLR. Essential Medication List for Review used to complete this medication reconciliation. INCLUDED IN THIS LIST: Alphabetical list of active outpatient prescriptions dispensed from this VA (local) and dispensed from another VA or [facility]D facility (remote) as well as inpatient orders (local, pending and active), local clinic medications, locally documented non-VA medications, and local prescriptions that have or been discontinued in the past 90 days. - All changes in medications, including all non-VA/Herbal/OTC medications were entered into CPRS. - If there were any medications the patient should no longer take, they were discontinued. - The patient/caregiver was instructed to update this list, discard old lists, and take this list to the next appointment, whether with a VA or non-VA provider. JLV Link Data on this list may not be complete. Please check JLV. Allergies/ADRs (Tool #5) FACILITY ALLERGY/ADR -------- No Remote Allergy/ADR Data available for this patient [place] [facility] TRAMADOL Med Recon [facility] (Tool #1) INCLUDED IN THIS LIST: Alphabetical list of active outpatient prescriptions dispensed from this [place] (local) and dispensed from another [place] or [facility] facility (remote) as well as inpatient orders (local pending and active), local clinic medications, locally documented non-VA medications, and local prescriptions that have or been discontinued in the past 90 days. Non-VA Meds Last Documented On: Jul 06, 2023 NOTE The display of VA prescriptions dispensed from another [place] or [facility] facility (remote) is limited to active outpatient prescription entries matched to National Drug File at the originating site and may not include some items such as investigational drugs, compounds, etc. NOT INCLUDED IN THIS LIST: Medications self-entered by the patient into personal health records (i.e. [employer]) are NOT included in this list. Non-VA medications documented outside this [place], remote inpatient orders (regardless of status) and remote clinic medications are NOT included in this list. The patient and provider must always discuss medications the patient is taking, regardless of where the medication was dispensed or obtained. ------ OUTPT ASPIRIN 81MG EC TAB (Status = Discontinued) TAKE ONE TABLET BY MOUTH ONCE DAILY TO PREVENT STROKE/HEART ATTACK Rx# [id number] Last Released: 07/19/23 Qty/Days Supply: 120/90 Rx Expiration Date: 11/05/23 Refills Remainin Indication: FOR BLOOD CLOT PREVENTION FOLLOWING PCI OUTPT FINASTERIDE 5MG TAB (Status = Active) TAKE ONE TABLET BY MOUTH ONCE DAILY Rx# [id number] Last Released: 01/17/24 Qty/Days Supply: Rx Expiration Date: 03/29/24 Refills Remainin OUTPT LORATADINE 10MG TAB (Status = ) TAKE ONE TABLET BY MOUTH ONCE DAILY FOR ALLERGY Rx# [id number] Last Released: 04/16/23 Qty/Days Supply: Rx Expiration Date: 11/05/23 Refills Remainin Indication: FOR ALLERGY OUTPT ROSUVASTATIN CA 20MG TAB (Status = ) TAKE ONE-HALF TABLET BY MOUTH AT BEDTIME FOR CHOLESTEROL Rx# [id number] Last Released: 11/01/23 Qty/Days Supply: Rx Expiration Date: 11/05/23 Refills Remainin Indication: FOR HIGH CHOLESTEROL Non-VA TADALAFIL 5MG TAB TAKE ONE TABLET BY MOUTH ONCE DAILY NEEDED Non-VA medication not recommended by VA provider. Patient wants to buy from Non-VA pharmacy. Medication prescribed by Non-VA provider. ------ SUPPLIES ------ /isak/ KEON VILLAVICENCIO MD Primary Care Physician Signed: 01/26/2024 10:04 KEON VILLAVICENCIO
--- OUTSIDE RECORDS SUMMARY | 2024-11-30 09:03 | XMS_ITS | Clinical Summary ---
Author Organization [facility] Address [address] [place] [address] Care Team Providers Care Soil Analyst Name Role Phone Unavailable Primary Care Provider Unavailabl e Medical History Medical History Date Comments Anal fissure 11/25/2017 DX:Anal fissure Incontinence of feces 10/08/2017 DX:Inconti nence of feces Social History Tobacco Use Types Packs/Day Years Used Date Smoking Tobacco: Unknown Alcohol Use Standard Drinks/Week Comments Yes 0 (1 standard drink = 0.6 oz pur e alcohol) Sex and Gender Information Value Date Recorded Sex Assigned at Not on file Legal Sex Male 5:06 PM EST Gender Identity Not on file Sexual Orientation Not on file Obstetrics History Plan of Treatment Health Maintenance Due Date Last Done Comments DTaP,Tdap,and Td Vaccines (1 - Tdap) 1981 Pneumococcal Vaccine: 50+ Ye ars (1 of 1 - PCV) 2012 Zoster Vaccines (1 of 2) 2012 Cholesterol Screening (Lipid Panel) 09/28/2023 Colorectal Cancer Screening: Colonoscopy 09/28/2023 Depression Screening 09/28/2023 HIV Screening 09/28/2023 Hepatitis C Screening 09/28/2023 Social Influencers of Health Screening 09/28/2023 COVID-19 Vaccine ( - 2023-2 5 season) 2024 Influenza Vaccine (Season Ended) 2025 RSV Immunization Adult Patie nts (1 - 1-dose 75+ series) 2037 HIB Vaccines Aged Out No longer eligi ble based on patient's age to complete this topic HPV Vaccines Aged Out No longer eligi ble based on patient's age to complete this topic Hepatitis A Vaccines Aged Out No long er eligible based on patient's age to complete this topic Hepatitis B Vaccines Aged Out No long er eligible based on patient's age to complete this topic IPV Vaccines Aged Out No longer eligi ble based on patient's age to complete this topic MMR Vaccines Aged Out No longer eligi ble based on patient's age to complete this topic Meningococcal ACWY Vaccine Aged Out N o longer eligible based on patient's age to complete this topic Meningococcal B Vacine Aged Out No lo nger eligible based on patient's age to complete this topic Pneumococcal Vaccine: Pediat rics (0 to 5 Years) and At-Risk Patients (6 to 64 Years) Aged Out No longer eligible b ased on patient's age to complete this topic RSV Immunization Patients Un savannah 20 months Aged Out No longer eligible b ased on patient's age to complete this topic Varicella Vaccines Aged Out No longer eligible based on patient's age to complete this topic
--- OUTSIDE RECORDS SUMMARY | 2024-11-30 09:03 | XMS_ITS | Encounter Summary ---
Author Name [facility] [place] Organization [place] Address [address] [place] [address] Care Team Providers Care Foam Fabricator Name Role Phone ROSEANNA VILLAVICENCIOA Primary Care Provider Unavailabl e Insurance Providers: [...] Herring's Name Patient's Relationship to Policy Herring [facility] MEDICAID MEDICAID MEDIC AID Aug 30, 2014 MEDICAI D [id number] JARON PARKER PATIENT Selected Encounter This section includes the information on record at [place] for the Encounter. Date/Time Encounter Type Encounter Description Reason Pro vider Source Oct 20, 2024 07:15 AM Outpatient Encounter COMMUNITY CARE CONSULT IHE Encounter Template Text not used by [place] Plan of Treatment: Future Appointments (+ 6 months) and Future Tests (+/- 45 days) The Plan of Treatment section includes future care activities for the patient from all [place] treatmentfacilities. This section includes future appointments and future orders which are active, pending or scheduled. Future Appointments This section includes appointments that were scheduled to occur 6 months from the date of the Encounter, up to a maximum of 20 appointments. The data comes from all [place] treatment facilities. Appointment Date/Time Appointment Type Appointme nt Facility Name Nov 07, 2024 08:00 AM AMBULATORY - PSYCHIATRY [facility] Nov 07, 2024 08:30 AM AMBULATORY - PSYCHIATRY [facility] Nov 29, 2024 08:15 AM AMBULATORY - PSYCHIATRY [facility] Nov 29, 2024 09:00 AM AMBULATORY - PSYCHIATRY [facility] Dec 20, 2024 08:15 AM AMBULATORY - PSYCHIATRY [facility] Dec 27, 2024 09:00 AM AMBULATORY - PSYCHIATRY [facility] Feb 14, 2025 09:00 AM AMBULATORY - MEDICINE [facility] NTRL [facility] Social History: Smoking Status (Most current) and Tobacco Use (All prior to encounter date) This section includes the most current, and the historical, smoking and tobacco- related health factors from the [place] facility where the Encounter took place. Current Smoking Status This section includes the most current smoking, or tobacco-related health factor, from the [place] facility where the Encounter took place. Date/Time Current Smoking Status Comment Facil it Jul 18, 2020 08:23 AM [facility]CO [facility] US[facility] Advance Directives: All historical and current Section Date Range: From patient's date of to the date document was created. This section includes ALL of a patient's completed or amended [place] Advance and Rescinded Directives. The entries below indicate that a directive exists for the patient, but an actual copy is not included with this document. The data comes from all [place] facilities. Date Advance Directives Provider Source Oct 28, 2017 [facility] Encounter Notes: All associated encounter notes This section contains the clinical notes associated to the Encounter. Date/Time Encounter Note(s) Provider Source Oct 22, 2024 08:52 AM ADDENDUM: LOCAL TITLE: Addendum STANDARD TITLE: ADDENDUM DATE OF NOTE: OCT 22, 2024@08:52:57 ENTRY DATE: OCT 22, 2024@08:52:58 AUTHOR: KEON VILLAVICENCIO EXP COSIGNER: URGENCY: STATUS: COMPLETED Please notify that per radiologist from [facility] that the left upper thyroid nodule in question was not visualized. Thanks /es/ KEON VILLAVICENCIO MD Primary Care Physician Signed: 10/22/2024 08:55 Receipt Acknowledged By: 10/23/2024 09:15 /es/ ОЛЬГА DOWLING RN REGISTERED NURSE === --- Original Document --- 10/20/24 ADMINISTRATIVE NOTE: Alert received from Maggi at [facility]: Per the radiologist, the nodule in question was not able to be reproduced or visualized for biopsy, therefore, no biopsy was done. A follow-up Ultrasound is suggested in the future. Report pending. /isak/ SACHA JACK RN, BSN REGISTERED NURSE Signed: 10/20/2024 12:07 Receipt Acknowledged By: 10/20/2024 12:21 /santhosh DOWLING RN REGISTERED NURSE 10/22/2024 08:52 /santhosh VILLAVICENCIO MD Primary Care Physician KEON VILLAVICENCIO [place] [facility] [place] [facility] Oct 20, 2024 12:04 PM ADMINISTRATIVE NOTE: LOCAL TITLE: ADMINISTRATIVE NOTE STANDARD TITLE: ADMINISTRATIVE NOTE DATE OF NOTE: OCT 20, 2024@12:04 ENTRY DATE: OCT 20, 2024@12:04:35 AUTHOR: SACHA JACK EXP COSIGNER: URGENCY: STATUS: COMPLETED ADMINISTRATIVE NOTE Has ADDENDA Alert received from Maggi at [facility]: Per the radiologist, the nodule in question was not able to be reproduced or visualized for biopsy, therefore, no biopsy was done. A follow-up Ultrasound is suggested in the future. Report pending. /santhosh JACK RN, BSN REGISTERED NURSE Signed: 10/20/2024 12:07 Receipt Acknowledged By: 10/20/2024 12:21 /santhosh DOWLING RN REGISTERED NURSE 10/22/2024 08:52 /santhosh VILLAVICENCIO MD Primary Care Physician 10/22/2024 ADDENDUM STATUS: COMPLETED Please notify that per radiologist from [facility] that the left upper thyroid nodule in question was not visualized. Thanks /santhosh VILLAVICENCIO MD Primary Care Physician Signed: 10/22/2024 08:55 Receipt Acknowledged By: 10/23/2024 09:15 /santhosh DOWLING RN REGISTERED NURSE 10/23/2024 ADDENDUM STATUS: COMPLETED Spoke with the and stated that provider's message. /isak/ ОЛЬГА DOWLING RN REGISTERED NURSE Signed: 10/23/2024 09:17 SACHA JACK [facility]
--- OUTSIDE RECORDS SUMMARY | 2024-11-30 09:03 | XMS_ITS | Encounter Summary ---
Author Name [facility] of [facility] [place] Organization [facility] [place] Address [address] [place] [id number] Care Team Providers Care Operations Staff Specialist Security Name Role Phone KEON VILLAVICENCIO Primary Care [...] Herring's Name Patient's Relationship to Policy Herring [facility] MEDICAID MEDICAID MEDIC AID Aug 30, 2014 MEDICAI D [id number] JARON PARKER PATIENT Selected Encounter This section includes the information on record at [place] for the Encounter. Date/Time Encounter Type Encounter Description Reason Pro vider Source Mar 15, 2024 03:12 PM Outpatient Encounter ADMIN PAT ACTIVTIES (MASNONCT) IHE Encounter Template Text not used by MD Plan of Treatment: Future Appointments (+ 6 months) and Future Tests (+/- 45 days) The Plan of Treatment section includes future care activities for the patient from all [place] treatmentfacilities. This section includes future appointments and future orders which are active, pending or scheduled. Future Appointments This section includes appointments that were scheduled to occur 6 months from the date of the Encounter, up to a maximum of 20 appointments. The data comes from all [place] treatment facilities. Appointment Date/Time Appointment Type Appointme nt Facility Name Apr 12, 2024 10:00 AM AMBULATORY - PSYCHIATRY [facility] May 03, 2024 09:00 AM AMBULATORY - PSYCHIATRY [facility] Jun 21, 2024 02:00 PM AMBULATORY - PSYCHIATRY [facility] Jul 12, 2024 08:15 AM AMBULATORY - PSYCHIATRY [facility] Jul 31, 2024 09:00 AM AMBULATORY - PSYCHIATRY [facility] Aug 08, 2024 08:30 AM AMBULATORY - MEDICINE [facility] [place] [facility] Aug 17, 2024 08:30 AM AMBULATORY - [facility]ICINE [facility] Sep 04, 2024 09:30 AM AMBULATORY - NONE [place] [facility] Sep 14, 2024 09:00 AM AMBULATORY - PSYCHIATRY [facility] Social History: Smoking Status (Most current) and Tobacco Use (All prior to encounter date) This section includes the most current, and the historical, smoking and tobacco- related health factors from the [place] facility where the Encounter took place. Current Smoking Status This section includes the most current smoking, or tobacco-related health factor, from the [place] facility where the Encounter took place. Date/Time Current Smoking Status Comment Onelia chance Jul 18, 2020 08:23 AM [facility] Advance Directives: All historical and current Section Date Range: From patient's date of to the date document was created. This section includes ALL of a patient's completed or amended [place] Advance and Rescinded Directives. The entries below indicate that a directive exists for the patient, but an actual copy is not included with this document. The data comes from all [place] facilities. Date Advance Directives Provider Source Oct 28, 2017 ADVANCE DIRECTIVE MARI DENNEY [facility] Encounter Notes: All associated encounter notes This section contains the clinical notes associated to the Encounter. Date/Time Encounter Note(s) Provider Source Mar 15, 2024 03:12 PM PHARMACY NOTE: LOCAL TITLE: V1 PHARMACY CUSTOMER CARE MEDICATION RENEWAL STANDARD TITLE: PHARMACY NOTE DATE OF NOTE: MAR 15, 2024@15:12 ENTRY DATE: MAR 15, 2024@15:12:23 AUTHOR: JOSE ALEJANDRO AYALA COSIGNER: URGENCY: STATUS: COMPLETED Date: Feb Division: [facility] referred by Pharmacy Call Center for medication renewal: Non-controlled/maintenan ce medication Medications requested: [id number] ROSUVASTATIN CA 20MG TAB * This medication is long . It was last released 11/01/23, but the [facility] requested to renew it. The [facility] can be reached at to discuss if needed. Please review.* Defer to primary care provider To be mailed . Please review and renew if appropriate. *This note was generated by [facility]/[place] [facility] Customer [facility]. If you have any questions or need assistance, do not contact this author. Please refer all questions to your local, on-site pharmacy departments. /isak/ JOSE ALEJANDRO AYALA [facility] Engagement Quality Consultant, [place]/Pharmacy Customer Care Signed: 03/15/2024 15:12 Receipt Acknowledged By: 03/15/2024 15:21 /es/ ОЛЬГА DOWLING, ZANE REGISTERED NURSE 03/16/2024 06:14 /isak/ KEON VILLAVICENCIO MD Primary Care Physician JOSE ALEJANDRO AYALA MD [facility]
--- OUTSIDE RECORDS SUMMARY | 2024-11-30 09:03 | XMS_ITS | Encounter Summary ---
Author Name [facility] [place] [facility] [place] Address [address] [place] [id number] Care Team Providers Care Herbicide Sprayer Name Role Phone KEON VILLAVICENCIO Primary Care [...] Herring's Name Patient's Relationship to Policy Herring [facility] MEDICAID MEDICAID MEDIC AID Aug 30, 2014 MEDICAI D [id number] JARON PARKER PATIENT Selected Encounter This section includes the information on record at [place] for the Encounter. Date/Time Encounter Type Encounter Description Reason Provider Source Nov 29, 2024 08:15 AM PSYTX W PT 45 MINUTES [facility] ICD-10-CM F43.12 Post-traumatic stress disorder, chronic [place] [facility] Lily Encounter Template Text not used by [place] Assessments - Encounter Diagnoses This section includes the primary and secondary diagnoses documented for the Encounter. Date/Time Primary/Secondary Diagnosis Diagnosis Name Provider Source Nov 29, 2024 09:13 PM PRIMARY Post-traumatic stress disorder, chronic [facility] Nov 29, 2024 09:13 PM SECONDARY Intermittent explosive disorder [facility] Plan of Treatment: Future Appointments (+ 6 [...] 20 appointments. The data comes from all [place] treatment facilities. Appointment Date/Time Appointment Type Appointme nt Facility Name Dec 20, 2024 08:15 AM AMBULATORY - PSYCHIATRY [facility] Dec 27, 2024 09:00 AM AMBULATORY - PSYCHIATRY [facility] Feb 14, 2025 09:00 AM AM[place]ULATORY - [place]ICINE [place] [facility] [place] [facility] Social History: Smoking Status (Most current) and Tobacco Use (All prior to encounter date) This section includes the most current, and the historical, smoking and tobacco- related health factors from the [place] facility where the Encounter took place. Current Smoking Status This section includes the most current smoking, or tobacco-related health factor, from the [place] facility where the Encounter took place. Date/Time Current Smoking Status Comment Facil ity Jul 06, 2023 09:00 AM VA-TOBACCO NEVER USED [place] Tobacco Use History This section includes a history of the smoking, or tobacco-related health factors, that were collected on or before the date of the Encounter. The data comes from the [place] facility where the Encounter took place. Date/Time Smoking Status/Tobacco Use Comment F acility Jul 28, 2022 11:30 AM [place]-TOBACCO NEVER USED [place] Jul 15, 2021 09:00 AM VA-TOBACCO NEVER USED [place] Oct 05, 2018 10:22 AM VA-TOBACCO NEVER USED [place] Aug 13, 2017 12:59 PM QUIT TOBACCO USE > 7 YEARS AGO quit cigarettes after the but does smoke marijuana [place] Advance Directives: All historical and current Section Date Range: From patient's date of to the date document was created. This section includes ALL of a patient's completed or amended [place] Advance and Rescinded Directives. The entries below indicate that a directive exists for the patient, but an actual copy is not included with this document. The data comes from all [place] facilities. Date Advance Directives Provider Source Oct 28, 2017 ADVANCE DIRECTIVE MARI DENNEY
--- OUTSIDE RECORDS SUMMARY | 2024-11-30 09:03 | XMS_ITS | Encounter Summary ---
Author Name [facility] [place] [facility] [place] Organization [place] Address [address] [place] [address] Care Team Providers Care Viscosity Worker Name Role Phone SAUD KEON Primary Care Provider Unavailabl e Insurance Providers: [...] MEDIC AID Aug 30, 2014 MEDICAI D [id number] PARKER ROBERTO PATIENT Selected Encounter This section includes the information on record at [place] for the Encounter. Date/Time Encounter Type Encounter Description Reason Provider Source Dec 01, 2023 09:00 AM CASE [facility] - IND ICD-10-CM G47.00 Insomnia, unspecified IRISWEDANII Y IHE Encounter Template Text not used by [place] Assessments - Encounter Diagnoses This section includes the primary and secondary diagnoses documented for the Encounter. Date/Time Primary/Secondary Diagnosis Diagnosis Name Provider Source Dec 01, 2023 09:46 AM PRIMARY Insomnia, unspecified VIK SIMMONS Dec 01, 2023 09:46 AM SECONDARY Anxiety disorder, unspecified VIK SIMMONS Dec 01, 2023 09:46 AM SECONDARY Depression, unspecified VIK SIMMONS Plan of Treatment: Future Appointments (+ 6 months) and Future Tests (+/- 45 days) The Plan of Treatment section includes future care activities for the patient from all [place] treatmentfacilities. This section includes future appointments and future orders which are active, pending or scheduled. Future Appointments This section includes appointments that were scheduled to occur 6 months from the date of the Encounter, up to a maximum of 20 appointments. The data comes from all [place] treatment facilities. Appointment Date/Time Appointment Type Appointme nt Facility Name Dec 08, 2023 09:30 AM AMBULATORY - PSYCHIATRY [facility] Dec 08, 2023 10:00 AM AMBULATORY - PS[facility]CHIATRY [facility] January 05, 2024 10:00 AM AMBULATORY - PS[facility]CHIATRY [facility] January 19, 2024 10:00 AM AMBULATORY - PS[facility]CHIATRY [facility] January 26, 2024 09:30 AM [facility] Feb 04, 2024 11:30 AM [facility]ORY [facility] Feb 09, 2024 10:00 AM AMBULAT[facility] - PS[facility]CHIATRY [facility] Mar 08, 2024 10:00 AM AMBULATORY - PS[facility]CHIATRY [facility] Apr 12, 2024 10:00 AM AMBULATORY - PS[facility]CHIATRY [facility] May 03, 2024 09:00 AM AMBULATORY - PS[facility]CHIATRY [facility] Social History: Smoking Status (Most current) and Tobacco Use (All prior to encounter date) This section includes the most current, and the historical, smoking and tobacco- related health factors from the [place] facility where the Encounter took place. Current Smoking Status This section includes the most current smoking, or tobacco-related health factor, from the [place] facility where the Encounter took place. Date/Time Current Smoking Status Comment Onelia ity Jul 06, 2023 09:00 AM [place]-TOBACCO NEVER USED [place] Tobacco Use History This section includes a history of the smoking, or tobacco-related health factors, that were collected on or before the date of the Encounter. The data comes from the [place] facility where the Encounter took place. Date/Time Smoking Status/Tobacco Use Comment F acility Jul 28, 2022 11:30 AM VA-TOBACCO NEVER USED [place] Jul 15, 2021 09:00 AM VA-TOBACCO NEVER USED [place] Oct 05, 2018 10:22 AM VA-TOBACCO NEVER USED [place] Aug 13, 2017 12:59 PM QUIT TOBACCO USE > 7 YEARS AGO quit cigarettes after the but does smoke marijuana [place] Advance Directives: All historical and current Section Date Range: From patient's date of to the date document was created. This section includes ALL of a patient's completed or amended [place] Advance and Rescinded Directives. The entries below indicate that a directive exists for the patient, but an actual copy is not included with this document. The data comes from all [place] facilities. Date Advance Directives Provider Source Oct 28, 2017 ADVANCE DIRECTIVE MARI DENNEY [place] Encounter Notes: All associated encounter notes This section contains the clinical notes associated to the Encounter. Date/Time Encounter Note(s) Provider Source Dec 01, 2023 09:38 AM MENTAL HEALTH CONS ULT: LOCAL TITLE: CONSULT REPORT/CRANIAL ELECTROTHERAPY STIMULATION STANDARD TITLE: MENTAL HEALTH CONSULT DATE OF NOTE: DEC 01, 2023@09:38 ENTRY DATE: DEC 01, 2023@09:38:49 AUTHOR: VIK SIMMONS EXP COSIGNER: URGENCY: STATUS: COMPLETED F: Alpha-Stim Trial [place] arrived at clinic re: Alpha-Stim Trial # 1 identified himself by name and date of . Roberto is alert and oriented to person, place, time, and situation. Roberto denies SI/HI, and or the use of any alcohol or illicit drugs. Blood Pressure: 123/74 (07/28/2023 08:53) Pain: 0 (07/28/2023 08:53) Patient Height: 68 in [172.7 cm] (07/28/2023 08:53) Patient Weight: 167.6 lb. [76.02 kg] (07/28/2023 08:53) Pulse: 70 (07/28/2023 08:53) Respiration: 16 (07/28/2023 08:53) Temperature: 98.4 F [36.9 C] (07/28/2023 08:53) D: Active problems - Computerized Problem List is the source for the followin. Exposure to potentially hazardous substance 2. Thyroid nodule 3. History of TIA 4. Prediabetes 5. Intermittent explosive disorder 6. Cocaine user 7. Alcohol abuse 8. Benign prostatic hypertrophy 9. Sleep apnea 10. Colonoscopy Screening 11. Cervicalgia 12. Elevated PSA 13. Plantar fasciitis 14. Insomnia 15. Hypercholesterolemia 16. Anal fissure 17. Diverticular disease 18. Multiple nodules of lung 19. Chronic pain Active Outpatient Medications (including Supplies): Active Outpatient Medications Status = 1) FINASTERIDE 5MG TAB TAKE ONE TABLET BY MOUTH ONCE ACTIVE DAILY Active Non-VA Medications Status = 1) Non-VA TADALAFIL 5MG TAB 5MG BY MOUTH ONCE DAILY ACTIVE NEEDED 2 Total Medications A/P: is utilizing Alpha-Stim for the diagnoses of insomnia, anxiety, and depression. Initial trial Carolina Vargas suggested that try the Alpha-Stim device for anxiety and depression. Roberto was informed that the Alpha-Stim is an FDA indicated non-pharmacological therapy that could be helpful for managing/reducing anxiety and depression as well as promoting improved sleep. Roberto was also informed that 3 trials are needed prior to being issued an Alpha-Stim device of his own, Roberto agrees to trials. Office Service Coordinator explained what to expect, demonstrated how to set-up, and utilize the Alpha-Stim. Roberto utilized the Alpha-Stim for 20 minutes and reports he noted almost instant benefit. Roberto reports feeling more relaxed and experiencing a sense of calm and euphoria while using the device. Roberto is excited by the potential for having reduced depression and anxiety as well as improved sleep in a non-pharmacological way and made a second appointment with database report writer to trial the Alpha-Stim again. Roberto was encouraged to be mindful of anything he notes good or bad after using the Alpha-Stim and is aware that he may contact database report writer to discuss and or we will discuss at next trial. Office Service Coordinator will order Roberto his personal device if he continues to find therapeutic benefit and remains interest in acquiring his own Alpha-Stim after the second trial is completed. Roberto will be contacted and oriented to his personal Alpha-Stim once it has arrived in the clinic. Upcoming Appointments: 12/08/2023 09:30 CWM/SO/MHC/IRIS 01/26/2024 09:30 CWM/SO/PACT 10 understands how to utilize the [place] Crisis Line (9-8-8 option 1) and urged to call that number at any time if they have thoughts about suicide and, or to call 911 or go to nearest E.R. if they have suicidal thoughts. RTC 12/08/2023, however [place] is aware that he can call or walk-in at anytime prior to next appointment. was provided with the date/time of next appointment as well as database report writer's contact information for use as needed. No barriers; Patient understands and agrees to current treatment plan. If has any questions, concerns, or changes in current health status will call or come in to the [facility]. 30 minutes spent in patient care and education. /isak/ VIK SIMMONS, MSN, RN, CNL MENTAL HEALTH NURSE ESTIMATOR JEWELRY Signed: 12/01/2023 09:46 VIK SIM[place]SFIELD
--- OUTSIDE RECORDS SUMMARY | 2024-11-30 09:03 | XMS_ITS | Continuity of Care Document ---
Author Name [facility] Organization [facility] Care Team Providers Care Excel Analyst Name Role Phone [facility] Unavailable Unavailable Problems Combined list of problems from Department of Defense and Veterans Affairs facilities. It does not include entries that were removed or entered in error. Problem Status Onset Date Problem Type Date of Resolution Comments Source Chronic Post-Traumatic Stress Disorder ([facility] [id number]) Active 981 Condition [facility] Alcohol abuse Active Condition [facility] Anal fissure Active Condition [facility] Benign prostatic hypertrophy Active Condition [facility] Cervicalgia Active Condition [facility] Chronic pain Active Condition Jul 23, 2017 Entered By: KEON VILLAVICENCIO Comment: left lbp, hip px r/t trauma (attacked by dog), left inner thigh and hamstring [facility] Cocaine user Active Condition [facility] Colonoscopy Screening Active Condition Aug 13, 2017 Entered By: KEON VILLAVICENCIO Comment: approx 2004Dec 2016 Entered By: KEON VILLAVICENCIO Comment: 11/2016 - +polyps, benign, repeat 10 yrs (2026) [facility] Diverticular disease Active Condition [facility] Elevated PSA Active Condition [facility] Exposure to potentially hazardous substance Active Condition Oct 14, 2023 Entered By: MIRYAM CUMMINGS Comment: Original [place]AND[place] Screening performed 07/28/22 [facility] History of TIA Active Condition Mar 2 2022 Entered By: KEON VILLAVICENCIO Comment: Occurred 02/2022 - ?? involved left legNov 2022 Entered By: KEON VILLAVICENCIO Comment: On clopidogrel x 1 year [place] Hypercholesterolemia Active Condition [facility] Insomnia Active Condition [facility] Intermittent explosive disorder Active Condition [facility] Multiple nodules of lung Active Condition Jul 23, 2017 Entered By: KEON VILLAVICENCIO Comment: right lung (3mm-6mm) - [facility] 10/05/16 Dr Strong 2018 Entered By: KEON VILLAVICENCIO Comment: 10/06/2017 - CT Chest - no change, exhibiting benign behavior [facility] Plantar fasciitis Active Condition [facility] Prediabetes Active Condition [facility] Sleep apnea Active Condition Jul 06, 2023 Entered By: KEON VILLAVICENCIO Comment: Noncompliant - intolerant to machine and mask [facility] Thyroid nodule Active Condition Jul 012022 Entered By: KEON VILLAVICENCIO Comment: 07/20/23 - left upper pole nodule 0.8cm in greatest dimension, solid, hypoechoic, taller than wide, ill defined, no FNA recommended but with sonographic f/u recommended annually for 5 yrs due to size [place] Outside Providers Inactive Condition 07/06/2023 A pr 2021 Entered By: KEON VILLAVICENCIO Comment: [place] [facility]. P: [phone], F: [phone] [place] Diagnosis: ICD-10-CM G47.00 Insomnia, unspecified Active Diagnosis [place] Diagnosis: ICD-10-CM F43.12 Post-traumatic stress disorder, chronic Active Diagnosis [place] Diagnosis: ICD-10-CM E78.5 Hyperlipidemia, unspecified Active Diagnosis [place] Diagnosis: ICD-10-CM G47.30 Sleep apnea, unspecified Active Diagnosis [facility] Diagnosis: ICD-10-CM F63.81 Intermittent explosive disorder Active Diagnosis [facility] Diagnosis: ICD-10-CM Z71.89 Other specified counseling Active Diagnosis [place] Diagnosis: ICD-10-CM R94.5 Abnormal results of liver function studies Active Diagnosis [place] Medications Combined list of outpatient medications from Department of Defense and Veterans Affairs facilities.Medications provided include 1) outpatient medications from the last 15 months, and 2) patient-reported medications. Medication Details Route Status Patient Instructions Prescription Expires Prescription Number Last Dispense Date Ordering Provider Order Date Order Qty Source FINASTERIDE 5MG TAB TAKE ONE TABLET BY MOUTH ONCE DAILY FOR ENLARGED PROSTATE ORAL ACTIVE 04/27/2025 [id number] ROSE MARIE VILLAVICENCIO SA 2023 90 [facility] FINASTERIDE 5MG TAB TAKE ONE TABLET BY MOUTH ONCE DAILY ORAL DISCONT INUED BY PROVIDE R 03/29/2024 [id number] BELIA MATTHEWS [facility] [address] [facility] [place] 20MG TAB TAKE ONE-HALF TABLET BY MOUTH AT BEDTIME FOR CHOLESTE ROL ORAL ACTIVE 10/24/2025 [id number] ROSE MARIE VILLAVICENCIO SA 2024 [address] [place] ROSUVASTATI N [place] 20MG TAB TAKE ONE-HALF TABLET BY MOUTH AT BEDTIME FOR CHOLESTE ROL ORAL DISCONT INUED 03/17/2025 [id number] ROSE MARIE VILLAVICENCIO SA 2023 45 [place] ROSUVASTATI N CA 20MG TAB TAKE ONE-HALF TABLET BY MOUTH AT BEDTIME FOR CHOLESTE ROL ORAL 11/05/2023 [id number] ROSE MARIE VILLAVICENCIO SA 2022 45 [place] TADALAFIL 5MG TAB TAKE ONE TABLET BY MOUTH ONCE DAILY NEEDED ORAL ACTIVE ROSE MARIE VILLAVICENCIO SA [address] [place] TRAZODONE HCL 100MG TAB TAKE ONE-HALF TABLET BY MOUTH AT BEDTIME NEEDED FOR INSOMNIA ASSOCIAT ED WITH DEPRESSI ON MAY TAKE ANOTHER ONE-HALF OF A TABLET IF THE FIRST HALF IS NOT EFFECTIV E ORAL DISCONT INUED BY PROVIDE R 11/08/2025 [id number] VIK SIMMONS 2024 [address] [place] Allergies, Adverse Reactions, Alerts Combined list of allergies from Department of Defense and Veterans Affairs facilities. It does not include entries that were removed or entered in error. Substance Category Reaction Severity Reaction type Status Date Reported Comments Source TRAMADOL Propensity to adverse reactions to drug (finding) active 7 [facility] Immunizations Combined list of available immunizations from the Department of Defense and Veterans Affairs facilities. Immunization Series Date Given Administered By Site Reaction Lot Number CVX Code Drug Elevator Serviceman Status Comments Source INFLUENZA, INJECTABLE, QUADRIVALENT, PRESERVATIVE FREE 2022 FAROOQMENG ON M LEFT DELTO ID [id number] A 150 complet ed [place] INFLUENZA, INJECTABLE, QUADRIVALENT, PRESERVATIVE FREE 2021 150 complet ed [place] INFLUENZA, UNSPECIFIED FORMULATION 2019 88 complet ed [facility] INFLUENZA, INJECTABLE, QUADRIVALENT, PRESERVATIVE FREE 2018 150 complet ed Site: Left Deltoid [place] INFLUENZA, INJECTABLE, QUADRIVALENT, PRESERVATIVE FREE 2017 150 complet ed Partner: [facility]. Administe red by: [facility] Clinician (NPI=Not Provided) . Partner 4 Lot#: [id number] Mfr: [employer] [facility] INFLUENZA, SEASONAL, INJECTABLE 2016 141 complet ed Site: Right Deltoid [place] TDAP 2016 115 complet ed Site: Right Deltoid [place] Results Combined list of recent chemistry, hematology and other laboratory results from Department of Defense and Veterans Affairs, ranging from 15 months to all on record, depending upon the facility. Order Name Results Value Reference Range Date Interpretation Specimen Comments Source THYROID T4 FREE(FT4) (WROX) THYROXINE (T4) FREE [MASS/VOLUM E] IN SERUM OR PLASMA 1.01 ng/dL 0.6 - 1.6 07/17 Specimen Type: SERUM No comment entered. Ordering Provider: KEON VILLAVICENCIO Report Released Date/Time: January 26, 2024 06:12 AM Reporting Lab: [facility] [address] [facility] [address] Performing Lab: [facility] [address] [address] [facility] TSH THYROTROPIN [UNITS/VOLU ME] IN SERUM OR PLASMA 0.92 u[IU]/ mL 0.35 - 5.00 07/17 Specimen Type: SERUM No comment entered. Ordering Provider: KEON VILLAVICENCIO Report Released Date/Time: January 26, 2024 06:12 AM Reporting Lab: [address] [address] Performing Lab: [address] [address] [facility] HEMOGLOBI N A1C PANEL HEMOGLOBIN A1C/HEMOGLO BIN.TOTAL IN BLOOD BY HPLC 5.7 4.0 - 5.6 07/17 H Specimen Type: BLOOD Comment: Values obtained from A1C measurement s can vary. For atypical A1C assays, a reported value of 7.0 could actually be between 6.72 and 7.28 if measured by a reference method. A reported value of 9.0 could actually be between 8.73 and 9.27. Ref: http://www. ngsp.org/[place] Pdata.asp Ordering Provider: KEON VILLAVICENCIO Report Released Date/Time: January 26, 2024 06:12 AM Reporting Lab: [address] [address] Performing Lab: [address] [address] [facility] LIPID PANEL FASTING CHOLESTEROL [MASS/VOLUM E] IN SERUM OR PLASMA 165 mg/dL 07/17 Specimen Type: SERUM No comment entered. Ordering Provider: KEON VILLAVICENCIO Report Released Date/Time: January 26, 2024 06:12 AM Reporting Lab: [address] [address] Performing Lab: [address] [address] [facility] LIPID PANEL FASTING TRIGLYCERID E [MASS/VOLUM E] IN SERUM OR PLASMA 54 mg/dL 0 - 150 07/17 Specimen Type: SERUM No comment entered. Ordering Provider: KEON VILLAVICENCIO Report Released Date/Time: January 26, 2024 06:12 AM Reporting Lab: [facility] [address] [address] Performing Lab: [facility] [address] [facility] [address] [facility] LIPID PANEL FASTING CHOLESTEROL IN LDL [MASS/VOLUM E] IN SERUM OR PLASMA BY CALCULATION 91 mg/dL 0 - 129 07/17 Specimen Type: SERUM No comment entered. Ordering Provider: KEON VILLAVICENCIO Report Released Date/Time: January 26, 2024 06:12 AM Reporting Lab: [facility] [address] [facility] [address] Performing Lab: [facility] [facility] [address] [facility] [address] [place] [facility] [facility] LIPID PANEL FASTING CHOLESTEROL .TOTAL/CHOL ESTEROL IN HDL [MASS RATIO] IN SERUM OR PLASMA 2.6 07/17 Specimen Type: SERUM No comment entered. Ordering Provider: KEON VILLAVICENCIO Report Released Date/Time: January 26, 2024 06:12 AM Reporting Lab: [facility] [address] [facility] [address] Performing Lab: [facility] [place] [facility] [address] [facility] [address] [facility] [place] [facility] LIPID PANEL FASTING CHOLESTEROL IN HDL [MASS/VOLUM E] IN SERUM OR PLASMA 63 mg/dL 40 - 60 07/17 H Specimen Type: SERUM No comment entered. Ordering Provider: KEON VILLAVICENCIO Report Released Date/Time: January 26, 2024 06:12 AM Reporting Lab: [facility] [place] [facility] [address] [address] Performing Lab: [facility] [place] [facility] [address] [address] [place] [facility] [place] [facility] LIVER FUNCTION PROTEIN [MASS/VOLUM E] IN SERUM OR PLASMA 6.6 g/dL 6.0 - 8.3 07/17 Specimen Type: SERUM No comment entered. Ordering Provider: KEON VILLAVICENCIO Report Released Date/Time: January 26, 2024 06:12 AM Reporting Lab: [facility] [address] [facility] [address] Performing Lab: [facility] [place] [facility] [address] [facility] [address] [facility] [place] [facility] LIVER FUNCTION ALBUMIN [MASS/VOLUM E] IN SERUM OR PLASMA 3.7 g/dL 3.5 - 5.0 07/17 Specimen Type: SERUM No comment entered. Ordering Provider: KEON VILLAVICENCIO Report Released Date/Time: January 26, 2024 06:12 AM Reporting Lab: [facility] [facility] [address] [address] Performing Lab: [facility] [facility] [address] [facility] [address] [place] [facility] [place] [facility] LIVER FUNCTION ALKALINE PHOSPHATASE [ENZYMATIC ACTIVITY/VO LUME] IN SERUM OR PLASMA 52 U/L 40 - 150 07/17 Specimen Type: SERUM No comment entered. Ordering Provider: KEON VILLAVICENCIO Report Released Date/Time: January 26, 2024 06:12 AM Reporting Lab: [facility] [place] [facility] [address] [address] Performing Lab: [facility] [place] [facility] [address] [address] [place] [facility] [place] [facility] LIVER FUNCTION ASPARTATE AMINOTRANSF ERASE [ENZYMATIC ACTIVITY/VO LUME] IN SERUM OR PLASMA 18 U/L 5 - 34 07/17 Specimen Type: SERUM No comment entered. Ordering Provider: KEON VILLAVICENCIO Report Released Date/Time: January 26, 2024 06:12 AM Reporting Lab: [facility] [address] [address] Performing Lab: [facility] [place] [facility] [address] [address] [facility] [place] [facility] LIVER FUNCTION ALANINE AMINOTRANSF ERASE [ENZYMATIC ACTIVITY/VO LUME] IN SERUM OR PLASMA 17 U/L 07/17 Specimen Type: SERUM No comment entered. Ordering Provider: KEON VILLAVICENCIO Report Released Date/Time: January 26, 2024 06:12 AM Reporting Lab: [facility] [place] [facility] [address] [address] Performing Lab: [facility] [place] [facility] [address] [address] [place] [facility] [facility] LIVER FUNCTION BILIRUBIN.T OTAL [MASS/VOLUM E] IN SERUM OR PLASMA 0.3 mg/dL 0.2 - 1.2 07/17 Specimen Type: SERUM No comment entered. Ordering Provider: KEON VILLAVICENCIO Report Released Date/Time: January 26, 2024 06:12 AM Reporting Lab: [place] [facility] [place] [address] [address] Performing Lab: [facility] [address] [address] [place] [facility] [place] [facility] BASIC METABOLIC PANEL (fasting) UREA NITROGEN [MASS/VOLUM E] IN SERUM OR PLASMA 12 mg/dL 7 - 25 07/17 Specimen Type: SERUM No comment entered. Ordering Provider: KEON VILLAVICENCIO Report Released Date/Time: January 26, 2024 06:12 AM Reporting Lab: [facility] [address] [address] Performing Lab: [facility] [place] [address] [address] [place] [facility] [place] [facility] BASIC METABOLIC PANEL (fasting) GLUCOSE [MASS/VOLUM E] IN SERUM OR PLASMA 103 mg/dL 65 - 100 07/17 H Specimen Type: SERUM No comment entered. Ordering Provider: KEON VILLAVICENCIO Report Released Date/Time: January 26, 2024 06:12 AM Reporting Lab: [facility] [place] [address] [address] Performing Lab: [facility] [place] [address] [address] [place] [facility] [place] [facility] BASIC METABOLIC PANEL (fasting) SODIUM [MOLES/VOLU ME] IN SERUM OR PLASMA 140 mmol/L 135 - 145 07/17 Specimen Type: SERUM No comment entered. Ordering Provider: KEON VILLAVICENCIO Report Released Date/Time: January 26, 2024 06:12 AM Reporting Lab: [place] [facility] [place] [address] [address] Performing Lab: [facility] [place] [facility] [address] [address] [place] [facility] [place] [facility] BASIC METABOLIC PANEL (fasting) POTASSIUM [MOLES/VOLU ME] IN SERUM OR PLASMA 4.5 mmol/L 3.5 - 5.0 07/17 Specimen Type: SERUM No comment entered. Ordering Provider: KEON VILLAVICENCIO Report Released Date/Time: January 26, 2024 06:12 AM Reporting Lab: [facility] [place] [address] [address] Performing Lab: [place] [facility] [place] [address] [address] [facility] BASIC METABOLIC PANEL (fasting) CHLORIDE [MOLES/VOLU ME] IN SERUM OR PLASMA 108 mmol/L 100 - 110 07/17 Specimen Type: SERUM No comment entered. Ordering Provider: KEON VILLAVICENCIO Report Released Date/Time: January 26, 2024 06:12 AM Reporting Lab: [facility] [place] [address] [address] Performing Lab: [facility] [place] [address] [address] [place] [facility] [place] [facility] BASIC METABOLIC PANEL (fasting) CARBON DIOXIDE, TOTAL [MOLES/VOLU ME] IN SERUM OR PLASMA 25 meq/L 20 - 30 07/17 Specimen Type: SERUM No comment entered. Ordering Provider: KEON VILLAVICENCIO Report Released Date/Time: January 26, 2024 06:12 AM Reporting Lab: [facility] [place] [address] [address] Performing Lab: [place] [facility] [facility] [address] [address] [place] [facility] [facility] BASIC METABOLIC PANEL (fasting) CREATININE [MASS/VOLUM E] IN SERUM OR PLASMA 0.98 mg/dL 0.50 - 1.40 07/17 Specimen Type: SERUM No comment entered. Ordering Provider: KEON VILLAVICENCIO Report Released Date/Time: January 26, 2024 06:12 AM Reporting Lab: [place] [facility] [place] [address] [address] Performing Lab: [place] [facility] [facility] [address] [facility] [place] [facility] BASIC METABOLIC PANEL (fasting) GLOMERULAR FILTRATION RATE/1.73 SQ M.PREDICTED [VOLUME RATE/AREA] IN SERUM, PLASMA OR BLOOD BY CREATININE- BASED FORMULA (CKD-EPI 2020) 88 mL/min 60 07/17 Specimen Type: SERUM No comment entered. Ordering Provider: KEON VILLAVICENCIO Report Released Date/Time: January 26, 2024 06:12 AM Reporting Lab: [facility] [place] [place] [address] [address] Performing Lab: [place] [facility] [facility] [address] [address] [facility] [place] [facility] PSA PROSTATE SPECIFIC AG [MASS/VOLUM E] IN SERUM OR PLASMA 3.95 ng/mL 0.00 - 4.00 07/17 Specimen Type: SERUM No comment entered. Ordering Provider: KEON VILLAVICENCIO Report Released Date/Time: January 26, 2024 06:12 AM Reporting Lab: [facility] [place] [address] [address] Performing Lab: [place] [facility] [facility] [address] [address] [facility] [place] [facility] CBC AND DIFF (AUTO) LEUKOCYTES [#/VOLUME] IN BLOOD BY AUTOMATED COUNT 7.58 10*3/u L 4.50 - 11.00 07/17 Specimen Type: BLOOD No comment entered. Ordering Provider: KEON VILLAVICENCIO Report Released Date/Time: January 26, 2024 06:12 AM Reporting Lab: [facility] [address] [facility] [address] Performing Lab: [facility] [address] [facility] [address] [facility] [place] [facility] CBC AND DIFF (AUTO) ERYTHROCYTE S [#/VOLUME] IN BLOOD BY AUTOMATED COUNT 4.62 10*6/u L 4.23 - 5.66 07/17 Specimen Type: BLOOD No comment entered. Ordering Provider: KEON VILLAVICENCIO Report Released Date/Time: January 26, 2024 06:12 AM Reporting Lab: [facility] [address] [facility] [address] Performing Lab: [facility] [address] [place] [address] [facility] [place] [facility] CBC AND DIFF (AUTO) HEMOGLOBIN [MASS/VOLUM E] IN BLOOD 13.5 g/dL 12.8 - 17 07/17 Specimen Type: BLOOD No comment entered. Ordering Provider: KEON VILLAVICENCIO Report Released Date/Time: January 26, 2024 06:12 AM Reporting Lab: [facility] [address] [place] [address] Performing Lab: [facility] [address] [facility] [address] [facility] [place] [facility] CBC AND DIFF (AUTO) HEMATOCRIT [VOLUME FRACTION] OF BLOOD BY AUTOMATED COUNT 41.5 39.2 - 50.4 07/17 Specimen Type: BLOOD No comment entered. Ordering Provider: KEON VILLAVICENCIO Report Released Date/Time: January 26, 2024 06:12 AM Reporting Lab: [facility] [address] [facility] [address] Performing Lab: [facility] [facility] [address] [place] [address] [facility] [place] [facility] CBC AND DIFF (AUTO) MCV [ENTITIC VOLUME] BY AUTOMATED COUNT 89.8 fL 82 - 99 07/17 Specimen Type: BLOOD No comment entered. Ordering Provider: KEON VILLAVICENCIO Report Released Date/Time: January 26, 2024 06:12 AM Reporting Lab: [facility] [address] [facility] [address] Performing Lab: [place] [facility] [place] [facility] [address] [facility] [address] [facility] [place] [facility] CBC AND DIFF (AUTO) MCHC [MASS/VOLUM E] BY AUTOMATED COUNT 32.5 g/dL 30.8 - 35.1 07/17 Specimen Type: BLOOD No comment entered. Ordering Provider: KEON VILLAVICENCIO Report Released Date/Time: January 26, 2024 06:12 AM Reporting Lab: [facility] [place] [address] [address] Performing Lab: [facility] [place] [address] [address] [place] [facility] [facility] CBC AND DIFF (AUTO) PLATELETS [#/VOLUME] IN BLOOD BY AUTOMATED COUNT 296 10*3/u L 140 - 360 07/17 Specimen Type: BLOOD No comment entered. Ordering Provider: KEON VILLAVICENCIO Report Released Date/Time: January 26, 2024 06:12 AM Reporting Lab: [facility] [place] [address] [address] Performing Lab: [facility] [place] [facility] [address] [place] [address] [facility] [place] [facility] CBC AND DIFF (AUTO) ERYTHROCYTE DISTRIBUTIO N WIDTH [RATIO] BY AUTOMATED COUNT 13.6 12.0 - 16.0 07/17 Specimen Type: BLOOD No comment entered. Ordering Provider: KEON VILLAVICENCIO Report Released Date/Time: January 26, 2024 06:12 AM Reporting Lab: [facility] [place] [address] [address] Performing Lab: [facility] [place] [address] [address] [facility] [place] [facility] CBC AND DIFF (AUTO) MONOCYTES [#/VOLUME] IN BLOOD BY AUTOMATED COUNT 0.52 10*3/u L 0.30 - 1.10 07/17 Specimen Type: BLOOD No comment entered. Ordering Provider: KEON VILLAVICENCIO Report Released Date/Time: January 26, 2024 06:12 AM Reporting Lab: [facility] [address] [facility] [address] Performing Lab: [facility] [place] [facility] [address] [facility] [address] [facility] [place] CBC AND DIFF (AUTO) MCH [ENTITIC MASS] BY AUTOMATED COUNT 29.2 pg 26.2 - 32.6 07/17 Specimen Type: BLOOD No comment entered. Ordering Provider: KEON VILLAVICENCIO Report Released Date/Time: January 26, 2024 06:12 AM Reporting Lab: [facility] [place] [address] [address] Performing Lab: [facility] [place] [address] [address] [facility] [place] [facility] CBC AND DIFF (AUTO) NEUTROPHILS /100 LEUKOCYTES IN BLOOD BY AUTOMATED COUNT 41.5 43.7 - 75.8 07/17 L Specimen Type: BLOOD No comment entered. Ordering Provider: KEON VILLAVICENCIO Report Released Date/Time: January 26, 2024 06:12 AM Reporting Lab: [facility] [address] [place] [address] Performing Lab: [facility] [address] [place] [address] [facility] [place] CBC AND DIFF (AUTO) LYMPHOCYTES /100 LEUKOCYTES IN BLOOD BY AUTOMATED COUNT 48.8 14.0 - 42.3 07/17 H Specimen Type: BLOOD No comment entered. Ordering Provider: KEON VILLAVICENCIO Report Released Date/Time: January 26, 2024 06:12 AM Reporting Lab: [facility] [place] [address] [address] Performing Lab: [facility] [place] [facility] [address] [facility] [address] [place] [facility] [place] [facility] CBC AND DIFF (AUTO) MONOCYTES/1 00 LEUKOCYTES IN BLOOD BY AUTOMATED COUNT 6.9 5.1 - 13.7 07/17 Specimen Type: BLOOD No comment entered. Ordering Provider: KEON VILLAVICENCIO Report Released Date/Time: January 26, 2024 06:12 AM Reporting Lab: [facility] [place] [facility] [address] [facility] [phone] Performing Lab[facility] [place] [facility] [address] [facility] [phone] [facility] [place] [facility] CBC AND DIFF (AUTO) EOSINOPHILS /100 LEUKOCYTES IN BLOOD BY AUTOMATED COUNT 2.1 0.4 - 6.8 07/17 Specimen Type: BLOOD No comment entered. Ordering Provider: KEON VILLAVICENCIO Report Released Date/Time: January 26, 2024 06:12 AM Reporting Lab: [facility] [place] [facility] [address] [address] Performing Lab: [facility] [place] [facility] [address] [facility] [address] [facility] CBC AND DIFF (AUTO) BASOPHILS/1 00 LEUKOCYTES IN BLOOD BY AUTOMATED COUNT 0.4 0.1 - 2.0 07/17 Specimen Type: BLOOD No comment entered. Ordering Provider: KEON VILLAVICENCIO Report Released Date/Time: January 26, 2024 06:12 AM Reporting Lab: [facility] [place] [facility] [address] [address] Performing Lab: [facility] [place] [facility] [address] [facility] [address] [facility] [place] [facility] CBC AND DIFF (AUTO) NEUTROPHILS [#/VOLUME] IN BLOOD BY AUTOMATED COUNT 3.15 10*3/u L 2.20 - 7.60 07/17 Specimen Type: BLOOD No comment entered. Ordering Provider: KEON VILLAVICENCIO Report Released Date/Time: January 26, 2024 06:12 AM Reporting Lab: [facility] [address] [facility] [address] Performing Lab: [facility] [address] [address] [facility] CBC AND DIFF (AUTO) LYMPHOCYTES [#/VOLUME] IN BLOOD BY AUTOMATED COUNT 3.70 10*3/u L 1.00 - 3.20 07/17 H Specimen Type: BLOOD No comment entered. Ordering Provider: KEON VILLAVICENCIO Report Released Date/Time: January 26, 2024 06:12 AM Reporting Lab: [facility] [address] [facility] [address] Performing Lab: [facility] [address] [facility] [address] [facility] CBC AND DIFF (AUTO) EOSINOPHILS [#/VOLUME] IN BLOOD BY AUTOMATED COUNT 0.16 10*3/u L 0.03 - 0.44 07/17 Specimen Type: BLOOD No comment entered. Ordering Provider: KEON VILLAVICENCIO Report Released Date/Time: January 26, 2024 06:12 AM Reporting Lab: [facility] [address] [facility] [address] Performing Lab: [facility] [address] [facility] [address] [facility] CBC AND DIFF (AUTO) BASOPHILS [#/VOLUME] IN BLOOD BY AUTOMATED COUNT 0.03 10*3/u L 0.01 - 0.13 07/17 Specimen Type: BLOOD No comment entered. Ordering Provider: KEON VILLAVICENCIO Report Released Date/Time: January 26, 2024 06:12 AM Reporting Lab: [facility] [address] [facility] [address] Performing Lab: [facility] [address] [facility] [address] [facility] CBC AND DIFF (AUTO) IMMATURE GRANULOCYTE S/100 LEUKOCYTES IN BLOOD BY AUTOMATED COUNT 0.3 0.0 - 0.7 07/17 Specimen Type: BLOOD No comment entered. Ordering Provider: KEON VILLAVICENCIO Report Released Date/Time: January 26, 2024 06:12 AM Reporting Lab: [facility] [place] [facility] [address] [facility] [address] Performing Lab: [place] [facility] [place] [address] [address] [facility] [place] [facility] CBC AND DIFF (AUTO) IMMATURE GRANULOCYTE S [#/VOLUME] IN BLOOD 0.02 10*3/u L 0.00 - 0.06 07/17 Specimen Type: BLOOD No comment entered. Ordering Provider: KEON VILLAVICENCIO Report Released Date/Time: January 26, 2024 06:12 AM Reporting Lab[facility] [address] [address] Performing Lab: [place] [facility] [place] [address] [address] [place] [facility] [place] [facility] CBC AND DIFF (AUTO) NRBC % 0.0 0.0 - 0.0 07/17 Specimen Type: BLOOD No comment entered. Ordering Provider: KEON VILLAVICENCIO Report Released Date/Time: January 26, 2024 06:12 AM Reporting Lab: [place] [facility] [place] [address] [address] Performing Lab: [place] [facility] [place] [address] [address] [facility] [place] CBC AND DIFF (AUTO) NRBC, ABS 0.00 10*3/u L 0.00 - 0.00 07/17 Specimen Type: BLOOD No comment entered. Ordering Provider: KEON VILLAVICENCIO Report Released Date/Time: January 26, 2024 06:12 AM Reporting Lab: [place] [facility] [place] [address] [address] Performing Lab: [place] [facility] [place] [address] [address] [facility] THYROID T4 FREE(FT4) (WROX) THYROXINE (T4) FREE [MASS/VOLUM E] IN SERUM OR PLASMA 1.03 ng/dL 0.6 - 1.6 01/13 Specimen Type: SERUM No comment entered. Ordering Provider: KEON VILLAVICENCIO Report Released Date/Time: Jul 28, 2023 05:50 AM Reporting Lab: [facility] [address] [facility] [address] Performing Lab: [facility] [place] [facility] [address] [facility] [address] [facility] TSH THYROTROPIN [UNITS/VOLU ME] IN SERUM OR PLASMA 2.02 u[IU]/ mL 0.35 - 5.00 01/13 Specimen Type: SERUM No comment entered. Ordering Provider: KEON VILLAVICENCIO Report Released Date/Time: Jul 28, 2023 05:50 AM Reporting Lab: [facility] [place] [facility] [address] [facility] [address] Performing Lab: [facility] [place] [facility] [address] [facility] [address] [facility] [place] [facility] Vital Signs Combined list of inpatient and outpatient Vital Signs from Department of Defense and Veterans Affairs, ranging from 12 months to all on record, depending upon the facility. Vital Sign Value Date Comments Source SYSTOLIC BLOOD PRESSURE 133 08/17/20 24 08:35:24 [facility] [place] DIASTOLIC BLOOD PRESSURE 83 024 08:35:24 [facility] [place] [facility] PULSE OXIMETRY 99 08/17/2024 08:35:24 [facility] WEIGHT 177 08/17/2024 08:35:24 [facility] BMI 27 kg/m2 08/17/2024 08:35:24 [facility] PAIN 0 08/17/2024 08:35:24 [facility] HEIGHT 68 08/17/2024 08:35:24 [facility] TEMPERATURE 98.1 08/17/2024 08:35:24 [facility] PULSE 61 08/17/2024 08:35:24 [facility] RESPIRATION 18 08/17/2024 08:35:24 [facility] SYSTOLIC BLOOD PRESSURE 131 01/26/20 24 09:40:49 [facility] DIASTOLIC BLOOD PRESSURE 82 024 09:40:49 [facility] PULSE OXIMETRY 99 01/26/2024 09:40:49 [facility] WEIGHT 171.6 01/26/2024 09:40:49 [facility] BMI 26 kg/m2 01/26/2024 09:40:49 [facility] PAIN 0 01/26/2024 09:40:49 [facility] HEIGHT 68 01/26/2024 09:40:49 [facility] TEMPERATURE 98.8 01/26/2024 09:40:49 [facility] PULSE 60 01/26/2024 09:40:49 [facility] RESPIRATION 18 01/26/2024 09:40:49 [facility] Encounters Combined list of: 1) Encounters from Department of Veterans Affairs facilities going backup to the last 18 months, not all VA inpatient encounters are included; 2) Encounters from the Department of Defense facilities going backup to 280 months. Location Location Details Encounter Type Encounter Number Reason For Visit Attending Provider ADM Date DC Date Status Disposition Source [facility] Encounter [id number] 06/04 [facility] Encounter [id number] 06/14 [facility] Encounter [id number] 06/25 [facility] [place] OFFICE O/P EST MOD 30-39 MIN [id number] Diagnos is: ICD-10- CM E78.5 Hyperli pidemia , unspeci fied ROSEANNA VILLAVICENCIO 07/06 [place] O/P EST MOD 30-39 MIN [id number] Diagnos is: ICD-10- CM R94.5 Abnorma l results of liver functio n studies ROSEANNA VILLAVICENCIO 07/28 [place] [facility] Encounter [id number] 08/09 [facility] En[facility] [id number] 08/17 [facility] Encounter [id number] 09/16 [facility] Encounter [id number] 09/21 [facility] Encounter [id number] 10/05 [facility] Encounter [id number] 11/03 [facility] [place] EST MAY X REQ PHY/QHP [id number] Diagnos is: ICD-10- CM Z71.89 Other specifi ed psychosocial rehabilitation counselor ing MADELINE DICKERSON O 11/23 [place] [facility] Out[facility] Encounter [id number] 11/24 [facility] Encounter [id number] 11/24 [facility] [place] [place] CASE MANAGEMENT [id number] Diagnos is: ICD-10- CM G47.00 Insomni a, unspeci fied IRIS,W OMER 11/30 [place] PSYCH DIAGNOSTIC EVALUATION [id number] Diagnos is: ICD-10- CM F63.81 Intermi ttent explosi ve disorde r LISA GRAY YOVANNY 11/30 [place] CASE MANAGEMENT [id number] Diagnos is: ICD-10- CM G47.00 Insomni a, unspeci fied IRIS,W OMER 12/07 [place] PSYTX W PT 60 MINUTES [id number] Diagnos is: ICD-10- CM F63.81 Intermi ttent explosi ve disorde r LISA GRAY 12/07 [place] PSYTX W PT 60 MINUTES [id number] Diagnos is: ICD-10- CM F43.12 Post-tr aumatic stress disorde r, chronic LISA GRAY 01/04 [place] [facility] En[facility] [id number] 01/09 [facility] En[facility] [id number] 01/13 [facility] [place] [place] PSYTX W PT 45 MINUTES [id number] Diagnos is: ICD-10- CM F43.12 Post-tr aumatic stress disorde r, chronic LISA GRAY YOVANNY 01/18 [place] OFF[place] O/P EST LOW 20 MIN [id number] Diagnos is: ICD-10- CM E78.5 Hyperli pidemia , unspeci fied ROSEANNA VILLAVICENCIO See HERI 01/25 [place] [facility] En[facility] [id number] 01/25 [facility] En[facility] [id number] LISA GRAY 01/26 [facility] [place] [facility] Outpatient Encounter [id number] 02/03 [facility] [place] [place] PSYTX W PT 60 MINUTES [id number] Diagnos is: ICD-10- CM F43.12 Post-tr aumatic stress disorde r, chronic LISA GRAY YOVANNY 02/08 [place] [facility] [place] COLLJ & INTERPJ DATA EA 30 D [id number] Diagnos is: ICD-10- CM G47.30 Sleep apnea, unspeci fied ST AMANT,ESTEBAN E P 02/08 [facility] [place] [place] [facility] [place] PSYTX W PT 60 MINUTES [id number] Diagnos is: ICD-10- CM F43.12 Post-tr aumatic stress disorde r, chronic LISA GRAY YOVANNY 03/08 [place] [facility] Out[facility] Encounter [id number] 03/15 [facility] Encounter [id number] [facility] [place] PSY[facility] W PT 60 MINUTES [id number] 1BY. 00 Diagnos is: ICD-10- CM F43.12 Post-tr aumatic stress disorde r, chronic LISA GRAY YOVANNY 04/12 [place] [facility] Out[facility] Encounter [id number] 1.04/26 [facility] Encounter [id number] 1.04/26 [facility] [place] PSYTX W PT 60 MINUTES [id number] Diagnos is: ICD-10- CM F43.12 Post-tr aumatic stress disorde r, chronic LISA GRAY YOVANNY 05/03 [place] [facility] Out[facility] Encounter [id number] 1.05/24 [facility] [place] PSYTX W PT 60 MINUTES [id number] Diagnos is: ICD-10- CM F43.12 Post-tr aumatic stress disorde r, chronic LISA GRAY YOVANNY 06/21 [place] [facility] QNHP OL DIG ASSMT&MGMT 5-10 [id number]. Diagnos is: ICD-10- CM G47.00 Insomni a, unspeci fiDAVION Gallegos 06/22 [facility] En[facility] [id number] 1.07/11 [facility] [place] PSY[place] W PT 60 MINUTES [id number] Diagnos is: ICD-10- CM F43.12 Post-tr aumatic stress disorde r, chronic LISA GRAY YOVANNY 07/12 [place] [facility] Out[facility] Encounter [id number] 07/13 [facility] Encounter [id number] 1.07/24 [facility] Encounter [id number] 1.07/25 [facility] En[facility] [id number] 1.07/31 [facility] [place] PSYTX W PT 60 MINUTES [id number] Diagnos is: ICD-10- CM F43.12 Post-tr aumatic stress disorde r, chronic LISA GRAY YOVANNY 07/31 [place] [facility] Out[facility] Encounter [id number] 08/01 [facility] En[facility] [id number] 1.08/02 [facility] Encounter [id number] 1.08/11 [facility] [place] OFF[place] O/P EST MOD 30 MIN [id number] Diagnos is: ICD-10- CM E78.5 Hyperli pidemia , unspeci fied ROSEANNA VILLAVICENCIO 08/17 [place] PSYTX W PT 60 MINUTES [id number] Diagnos is: ICD-10- CM F43.12 Post-tr aumatic stress disorde r, chronic LISA GRAY YOVANNY 09/14 [place] [facility] Outpatient Encounter [id number] 09/27 [facility] [place] PSY[place] W PT 45 MINUTES [id number] Diagnos is: ICD-10- CM F43.12 Post-tr aumatic stress disorde r, chronic LISA GRAY YOVANNY 10/09 [place] [facility] Outpatient Encounter [id number] 10/20 [facility] [place] [facility] En[facility] [id number] 10/20 [facility] [place] PSY[place] W PT 30 MINUTES [id number] Diagnos is: ICD-10- CM F43.12 Post-tr aumatic stress disorde r, chronic LISA GRAY YOVANNY 11/07 [place] OFFICE O/P NEW MOD 45 MIN [id number] Diagnos is: ICD-10- CM G47.00 Insomni a, unspeci fied IRIS,W OMER 11/07 [place] PSYTX W PT 45 MINUTES [id number] Diagnos is: ICD-10- CM F43.12 Post-tr aumatic stress disorde r, chronic LISA GRAY YOVANNY 11/29 [place] OFF[place] O/P EST MOD 30 MIN [id number] Diagnos is: ICD-10- CM G47.00 Insomni a, unspeci fied IRIS,W OMER 11/29 [place] Social History Combined list of available smoking, tobacco, and other social history from Department of Defense and Veterans Affairs facilities. Social History Type Response Date Comment Source Tobacco smoking status [facility] NEVER USED 07/06/2023 [place] History of tobacco use [facility]-TOBACCO NEVER USED 07/28/2022 [place] History of tobacco use VA-TOBACCO NEVER USED 07/15/2021 [place] History of tobacco use [facility]-TO[facility]CO NEVER USED 07/18/2020 [facility] History of tobacco use VA-TOBACCO NEVER USED 10/05/2018 [place] History of tobacco use QUIT TOBACCO USE > 7 YEARS AGO 08/13/2017 quit cigarettes after the but does smoke marijuana [place] Plan of Care List of future care activities from Department of Veterans Affairs facilities. Additional future care activities may be listed in the Assessment and Plan section. Date/Time Care Activity Care Activity Detail Facili ty 12/20/2024 AMBULATORY - PSYCHIATRY AM[facility]ULATORY [facility] PS[facility]C [facility] Advance Directives List of completed, amended, or rescinded Advance Directives on record at Department of Veterans Affairs facilities. An actual copy of the Directive is not included. Date Advance Directive Provider Source 10/28/2017 ADVANCE DIRECTIVE MARI DEN[place] [facility]
--- OUTSIDE RECORDS SUMMARY | 2024-11-30 09:03 | XMS_ITS | Encounter Summary ---
Author Name [facility] [place] [facility] [place] Address [address] [place] [address] Care Team Providers Care Skirt Clipper Name Role Phone SAUD KEON Primary Care [...] Herring's Name Patient's Relationship to Policy Herring [facility] MEDICAID MEDICAID MEDIC AID Aug 30, 2014 MEDICAI D [id number] PARKER ROBERTO PATIENT Selected Encounter This section includes the information on record at [place] for the Encounter. Date/Time Encounter Type Encounter Description Reason Provider Source Dec 08, 2023 09:30 AM CASE [facility] ICD-10-CM G47.00 Insomnia, unspecified IRISADELAIDA Y IHE Encounter Template Text not used by [place] Assessments - Encounter Diagnoses This section includes the primary and secondary diagnoses documented for the Encounter. Date/Time Primary/Secondary Diagnosis Diagnosis Name Provider Source Dec 08, 2023 09:26 AM PRIMARY Insomnia, unspecified VIK SIMMONS Dec 08, 2023 09:26 AM SECONDARY Anxiety disorder, unspecified VIK SIMMONS Dec 08, 2023 09:26 AM SECONDARY Depression, unspecified VIK SIMMONS Plan of Treatment: Future Appointments (+ 6 months) and Future Tests (+/- 45 days) The Plan of Treatment section includes future care activities for the patient from all [place] treatmentfacilities. This section includes future appointments and future orders which are active, pending or scheduled. Future Appointments This section includes appointments that were scheduled to occur 6 months from the date of the Encounter, up to a maximum of 20 appointments. The data comes from all [place] treatment facilities. Appointment Date/Time Appointment Type Appointme nt Facility Name January 05, 2024 10:00 AM AMBULATORY - PSYCHIATRY [facility] January 19, 2024 10:00 AM AMBULATORY - PSYCHIATRY [facility] January 26, 2024 09:30 AM [facility] Feb 04[facility] 2024 11:30 AM AM[facility]ULATORY MEDIC[facility] [place] [facility] Feb 09, 2024 10:00 AM AMBULATORY - PSYCHIATRY [facility] Mar 08, 2024 10:00 AM AMBULATORY - PSYCHIATRY [facility] Apr 12, 2024 10:00 AM AMBULATORY - PSYCHIATRY [facility] May 03, 2024 09:00 AM AMBULATORY - PSYCHIATRY [facility] Social History: Smoking Status (Most current) and Tobacco Use (All prior to encounter date) This section includes the most current, and the historical, smoking and tobacco- related health factors from the [place] facility where the Encounter took place. Current Smoking Status This section includes the most current smoking, or tobacco-related health factor, from the [place] facility where the Encounter took place. Date/Time Current Smoking Status Comment Onelia ity Jul 06, 2023 09:00 AM [place] NEVER US[place] Tobacco Use History This section includes a history of the smoking, or tobacco-related health factors, that were collected on or before the date of the Encounter. The data comes from the [place] facility where the Encounter took place. Date/Time Smoking Status/Tobacco Use Comment F acility Jul 28, 2022 11:30 AM [place] US[place] Jul 15, 2021 09:00 AM [facility]-TO[facility]ACCO NEVER USED [place] Oct 05, 2018 10:22 AM [place] NEVER USED [place] Aug 13, 2017 12:59 PM QUIT TOBACCO USE > 7 YEARS AGO quit cigarettes after the but does smoke marijuana [place] Advance Directives: All historical and current Section Date Range: From patient's date of to the date document was created. This section includes ALL of a patient's completed or amended [place] Advance and Rescinded Directives. The entries below indicate that a directive exists for the patient, but an actual copy is not included with this document. The data comes from all [place] facilities. Date Advance Directives Provider Source Oct 28, 2017 ADVANCE DIRECTIVE MARI [place] Encounter Notes: All associated encounter notes This section contains the clinical notes associated to the Encounter. Date/Time Encounter Note(s) Provider Source Dec 08, 2023 09:20 AM MENTAL HEALTH CONS ULT: LOCAL TITLE: CONSULT REPORT/CRANIAL ELECTROTHERAPY STIMULATION STANDARD TITLE: MENTAL HEALTH CONSULT DATE OF NOTE: DEC 08, 2023@09:20 ENTRY DATE: DEC 08, 2023@09:20:19 AUTHOR: VIK SIMMONS EXP COSIGNER: URGENCY: STATUS: COMPLETED F: Alpha-Stim Trial arrived at clinic re: Alpha-Stim Trial # 2 and issued his personal Alpha-Stim. Cece is known to software writer and identified himself by name and date of [...] DAILY ACTIVE NEEDED 2 Total Medications A/P: Cece is utilizing Alpha-Stim for the diagnoses of insomnia, anxiety, and depression. Roberto reports significant therapeutic benefits from his previous utilization of the Alpha-Stim. Roberto was oriented to his personal device and was observed setting it up without difficulty. Roberto utilized the Alpha-Stim again for 20 minutes and reports he noted the same almost instant benefit. Roberto reports feeling more relaxed and experiencing a sense of calm and euphoria while using the device. Roberto is excited by the potential for having reduced depression and anxiety as well as improved sleep in a non-pharmacological way with use of his own Alpha-Stim. Roberto was encouraged to remain mindful of anything he notes good or bad after using the Alpha-Stim and is aware that he may contact software writer to discuss as needed. Upcoming Appointments: 12/08/2023 10:00 CWM/SO/MHC/GRAY 01/26/2024 09:30 CWM/SO/PACT 10 understands how to utilize the [employer] Crisis Line (9-8-8 option 1) and urged to call that number at any time if they have thoughts about suicide and, or to call 911 or go to nearest E.R. if they have suicidal thoughts. is aware that she/he can call or walk-in at anytime prior to next appointment. Cece was provided with software writer's contact information for use as needed. No barriers; Patient understands and agrees to current treatment plan. If has any questions, concerns, or changes in current health status will call or come [facility] to the [facility]. 30 minutes spent in patient care and education. /isak/ VIK SIMMONS, MSN, RN, CNL MENTAL HEALTH NURSE [facility] CONSULTANT Signed: 12/08/2023 09:27 [place]
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
--- OUTSIDE RECORDS SUMMARY | 2024-11-30 09:03 | XMS_ITS | Encounter Summary ---
Author Name [facility] Organization [facility] Address [address] [place] [id number] Care Team Providers Care Survey Analyst Name Role Phone KEON VILLAVICENCIO Primary Care [...] Herring's Name Patient's Relationship to Policy Herring [facility] MEDICAID MEDICAID MEDIC AID Aug 30, 2014 MEDICAI D [id number] JARON PARKER PATIENT Selected Encounter This section includes the information on record at [place] for the Encounter. Date/Time Encounter Type Encounter Description Reason Provider Source Aug 17, 2024 08:30 AM OFFICE O/P EST MOD 30 MIN PRIMARY CARE/MEDICINE ICD-10-CM E78.5 Hyperlipidemia, unspecified KEON VILLAVICENCIO Encounter Template Text not used by [place] Assessments - Encounter Diagnoses This section includes the primary and secondary diagnoses documented for the Encounter. Date/Time Primary/Secondary Diagnosis Diagnosis Name Provider Source Aug 17, 2024 08:49 AM PRIMARY Hyperlipidemia, unspecified KEON VILLAVICENCIO Aug 17, 2024 08:49 AM SECONDARY Nontoxic single thyroid nodule KEON VILLAVICENCIO Aug 17, 2024 08:49 AM SECONDARY Prediabetes KEON VILLAVICENCIO Plan of Treatment: Future Appointments (+ 6 months) and Future Tests (+/- 45 days) The Plan of Treatment section includes future care activities for the patient from all [place] treatmentfacilities. This section includes future appointments and future orders which are active, pending or scheduled. Future Appointments This section includes appointments that were scheduled to occur 6 months from the date of the Encounter, up to a maximum of 20 appointments. The data comes from all [place] treatment facilities. Appointment Date/Time Appointment Type Appointme nt Facility Name Sep 04, 2024 09:30 AM [facility] NONE [facility] Sep 14, 2024 09:00 AM AMBULATORY - PSYCHIATRY [facility] Oct 09, 2024 09:00 AM AMBULATORY - PSYCHIATRY [facility] Oct 20, 2024 07:15 AM AMBULATORY - MEDICINE [facility] Nov 07, 2024 08:00 AM AMBULATORY - PSYCHIATRY [facility] Nov 07, 2024 08:30 AM AMBULATORY - PSYCHIATRY [facility] Nov 29, 2024 08:15 AM AMBULATORY - PSYCHIATRY [facility] Nov 29, 2024 09:00 AM AMBULATORY - PSYCHIATRY [facility] Dec 20, 2024 08:15 AM AMBULATORY - PSYCHIATRY [facility] Dec 27, 2024 09:00 AM AMBULATORY - PSYCHIATRY [facility] Feb 14, 2025 09:00 AM AMBULATORY - MEDICINE [facility] Social History: Smoking Status (Most current) and Tobacco Use (All prior to encounter date) This section includes the most current, and the historical, smoking and tobacco- related health factors from the [place] facility where the Encounter took place. Current Smoking Status This section includes the most current smoking, or tobacco-related health factor, from the [place] facility where the Encounter took place. Date/Time Current Smoking Status Comment Onelia ity Jul 06, 2023 09:00 AM [place]-TOBACCO NEVER USED [place] Tobacco Use History This section includes a history of the smoking, or tobacco-related health factors, that were collected on or before the date of the Encounter. The data comes from the [place] facility where the Encounter took place. Date/Time Smoking Status/Tobacco Use Comment F acility Jul 28, 2022 11:30 AM [place]-TOBACCO NEVER USED [place] Jul 15, 2021 09:00 AM [facility]-TOBACCO NEVER USED [place] Oct 05, 2018 10:22 AM [place]-TOBACCO NEVER USED [place] Aug 13, 2017 12:59 PM QUIT TOBACCO USE > 7 YEARS AGO quit cigarettes after the but does smoke marijuana [place] Advance Directives: All historical and current Section Date Range: From patient's date of to the date document was created. This section includes ALL of a patient's completed or amended [place] Advance and Rescinded Directives. The entries below indicate that a directive exists for the patient, but an actual copy is not included with this document. The data comes from all [place] facilities. Date Advance Directives Provider Source Oct 28, 2017 ADVANCE DIRECTIVE MARI DENNEY [place] Radiology Reports: +/- 30 days of the encounter Radiology Reports For cases when an order for radiology services may have been completed prior to the date of the Encounter, the report list includes the Radiology Reports that were completed up to 30 days before dateof the Encounter. For cases when an order for radiology services may have been completed after the date of the Encounter, the report list also includes the Radiology Reports that were completed up to30 days after date of the Encounter. The data comes from all [place] treatment facilities. Date/Time Radiology Report Provider Source Sep 04, 2024 09:18 AM ULTRASOUND NECK (THYROID,HEAD,SOFT TISSUE): JARON PARKER [id number] M Exm Date: SEP 04, 2024@09:18 Req Phys: KEON VILLAVICENCIO Pat Loc: CWM/SO/PACT 10 (Req'g Loc) Img Loc: ULTRASOUND Service: Unknown [place] [address] (Case 21 COMPLETE) ULTRASOUND NECK (THYROID,HEAD,SOF(US Detailed) CPT:58007 Reason for Study: thyroid nodule Clinical History: please compare to thyroid U/S 07/20/23 left upper lobe nodule 0.8cm Report Status: Verified Date Reported: SEP 04, 2024 Date Verified: SEP 04, 2024 Threat Analyst E-Sig:/ES/RACHEAL MITCHELL Report: THYROID ULTRASOUND Technique: Multiplanar ultrasonography of the thyroid was performed using grayscale imaging, supplemented by color Doppler as needed. Comparison: Thyroid ultrasound July 20, 2023 HISTORY: Reason for Study: thyroid nodule please compare to thyroid U/S 07/20/23 left upper lobe nodule 0.8cm REASON FOR STUDY: thyroid nodule FINDINGS: Right thyroid lobe: Measures 4 x 1.8 x 1.5cm. Estimated volume 6 mL (approximate normal range 10-18mL). Left thyroid lobe: Measures 3.9 x 1.8 x 1.7cm. Estimated volume: 6 mL (approximate normal range 10-18mL). Isthmus: Measures 5mm in thickness. Overall thyroid echotexture: Mildly heterogeneous echotexture. Overall vascularity within normal limits. TR3-5 nodules (up to 4 most suspicious): Nodule #1: Location: Left superior Composition: Solid Echogenicity: Hypoechoic Shape: Taller than wide Margin: Smooth Echogenic Foci: Absent Maximum size: 1.1 cm, Other two dimensions: 0.7 x 0.6 cm. Significant change in size (>20% in two dimensions and increase >2mm): Not convincingly seen on prior exam. Previously visualized nodule appears to be more anterior in location. If this does represent the same nodule, there has been borderline significant increase in size where previously measured 0.8 x 0.6 x 0.5 cm. Change in ACR TI-RADS Risk category: Not applicable ACR TI-RADS Total Points: 7 ACR TI-RADS Category: TR 5 Other nodules: No significant. Lymph nodes: No enlarged lymph nodes on limited survey of the anterior neck. Impression: 1.1 cm left superior TR 5 nodule either new or increased in size compared to prior exam. TI-RADS Levels: TR1 - 0 points: No FNA or follow-up. TR2 - 2 points: No FNA or follow-up. TR3 - 3 points: FNA if greater than or equal to 2.5 cm. Follow if greater than or equal to 1.5 cm at 1, 3, and 5 years. TR4 - 4-6 points: FNA if greater than or equal to 1.5 cm. Follow if greater than or equal to 1 cm at 1, 2, 3, and 5 years TR5 - 7 or more points: FNA if greater than or equal to 1 cm. Follow if greater than or equal to 0.5 annually for up to 5 years. FNA biopsy is recommended for TR3-TR5 lesions with the above size criteria. If there are multiple nodules, the two with the highest ACR TI-RADS scores should be sampled (rather than the two largest), with largest size being used a tie-breaker if there are multiple nodules of the same classification. Interval enlargement on follow-up is significant if there is an increase of >20% and >2 mm in two dimensions or a >50% increase in volume. If the ACR TI-RADS level increases between scans, an interval scan the following year is again recommended. ACR Thyroid Imaging, Reporting and Data System (TI-RADS): White Paper of the ACR TI-RADS Committee J Am Norbert Radiol 2017;14:587-595. Ultrasound Primary Diagnostic Code: Significant Abnormality Attention Needed Primary Interpreting Staff: RACHEAL MITCHELL, Staff Physician (Threat Analyst) /[facility]AL [facility] Encounter Notes: All associated encounter notes This section contains the clinical notes associated to the Encounter. Date/Time Encounter Note(s) Provider Source Aug 17, 2024 08:36 AM PREVENTIVE MEDICIN E NURSING NOTE: LOCAL TITLE: CLINICAL REMINDERS/NURSING STANDARD TITLE: PREVENTIVE MEDICINE NURSING NOTE DATE OF NOTE: AUG 17, 2024@08:36 ENTRY DATE: AUG 17, 2024@08:36:06 AUTHOR: KALLI TRIVEDI COSIGNER: URGENCY: STATUS: COMPLETED Advance Directive Screen MH AD: Patient has an Advance Directive on file at this [facility]. No updates are needed at this time. The patient received education about Advance Directives and written notification of his/her rights. Depression Screening: Perform PHQ-2 A PHQ-2 screen was performed. The score was 0 which is a negative screen for depression. Over the past two weeks, how often have you been bothered by the following problems? 1. Little interest or pleasure in doing things Not at all 2. Feeling down, depressed, or hopeless Not at all Influenza Immunization: Deferral / Refusal The patient declines to receive the recommended dose of seasonal influenza vaccine. Immunization: INFLUENZA, UNSPECIFIED FORMULATION Refusal Reason: PATIENT DECISION Patient refuses all immunization(s) in the FLU group Date Documented: 08/17/24 08:36 Alcohol Use Screen (AUDIT-C): Alcohol Screen: SCREEN FOR ALCOHOL (AUDIT-C) An alcohol screening test (AUDIT-C) was negative (score=1). 1. How often did you have a drink containing alcohol in the past year? Consider a drink to be a 12 ounce can or bottle of regular beer, 8 ounces of malt liquor, a 5 ounce glass of table wine, or a 1.5 ounce shot of liquor (like scotch, gin, or vodka). Monthly or less 2. How many drinks containing alcohol did you have on a typical day when you were drinking in the past year? One or two drinks 3. How often did you have six or more drinks on one occasion in the past year? Never COVID-19 Immunization: Refused Moderna Monovalent COVID-19 vaccine Immunization: COVID-19 (MODERNA), MRNA, LNP-S, PF, 50 MCG/0.5 ML (AGES 12+ YEARS) Refusal Reason: PATIENT DECISION Patient refuses all immunization(s) in the COVID-19 group Date Documented: 08/17/24 08:37 Herpes Zoster (Shingles) Vaccine: The patient declines to receive the recommended dose of zoster (shingles) vaccine. Immunization: ZOSTER RECOMBINANT Refusal Reason: PATIENT DECISION Patient refuses all immunization(s) in the ZOSTER group Date Documented: 08/17/24 08:37 Sexual Orientation: The patient thinks of their sexual orientation as: Straight or Heterosexual /es/ KALLI TRIVEDI LPN PACT 10 Signed: 08/17/2024 08:37 KALLI TRIVEDI Aug 17, 2024 05:34 AM PHYSICIAN NOTE: LOCAL TITLE: MD NOTE STANDARD TITLE: PHYSICIAN NOTE DATE OF NOTE: AUG 17, 2024@05:34 ENTRY DATE: AUG 17, 2024@05:34:23 AUTHOR: KEON VILLAVICENCIO EXP COSIGNER: URGENCY: STATUS: COMPLETED NOTE Has ADDENDA HISTORY OF PRESENT ILLNESS: JARON ADAM PARKER is a 63 yo MALE who presents at the [facility] for his annual wellness exam. Labs completed 07/17/24. Active problems - Computerized Problem List is [...] Last Fill Active Outpatient Medications Refills Expiration 1) ELECTRODE SPRAY,SIGNASPRAY Qty: 250 for 90 ACTIVE Issue: 06/22/24 days Sig: APPROPRIATE AMOUNT TOPICALLY Refills: 3 Last : 06/22/24 DIRECTED BY PROVIDER (SIGNA SPRAY REPLACES Expr : 06/23/25 ALPHA-STIM SOLUTION) Indication: FOR USE WITH ALPHA-STIM THERAPY 2) FINASTERIDE 5MG TAB Qty: 90 for 90 days Sig: ACTIVE Issue: 04/26/24 TAKE ONE TABLET BY MOUTH ONCE DAILY Refills: 2 Last : 08/10/24 Indication: FOR ENLARGED PROSTATE Expr : 04/27/25 3) ROSUVASTATIN CA 20MG TAB Qty: 45 for 90 days ACTIVE Issue: 03/16/24 Sig: TAKE ONE-HALF TABLET BY MOUTH AT Refills: 0 Last : 07/15/24 BEDTIME FOR CHOLESTEROL Expr : 03/17/25 Indication: FOR HIGH CHOLESTEROL Start Date Active Non-VA Medications Status Stop Date 1) Non-VA TADALAFIL 5MG TAB SiMG BY MOUTH ACTIVE ONCE DAILY NEEDED 4 Total Medications ALLERGIES: ========= TRAMADOL LAB HISTORY: CHEM 7 TREND LAB CUMULATIVE SELECTED Collection DT Spec GLUCOSE BUN CREATIN Sodium K+/Pot CL CO2 07/17/2024 07:45 SERUM 103 H 12 0.98 140 4.5 108 25 01/14/2024 07:32 SERUM 101 H 06/28/2023 07:32 SERUM 95 15 1.03 140 4.5 105 25 07/21/2022 07:33 SERUM 95 18 1.12 142 4.4 105 28 07/11/2021 07:22 SERUM 94 13 1.11 144 4.1 110 23 CBC TREND Collection DT Spec WBC RBC HGB HCT MCV MCH PLT 07/17/2024 07:45 BLOOD 7.58 4.62 13.5 41.5 89.8 29.2 296 06/28/2023 07:32 BLOOD 7.24 4.93 13.5 42.1 85.4 27.4 384 07/21/2022 07:33 BLOOD 7.19 4.86 13.7 42.9 88.3 28.2 354 07/11/2021 07:22 BLOOD 6.37 4.56 13.0 41.0 89.9 28.5 306 07/11/2020 07:45 BLOOD 7.52 4.61 13.6 42.4 92.0 29.5 294 HEMOGLOBIN A1C TREND Collection DT Spec HGBA1c 07/17/2024 07:45 BLOOD 5.7 H 01/14/2024 07:32 BLOOD 5.5 06/28/2023 07:32 BLOOD 5.9 H 07/21/2022 07:33 BLOOD 5.8 H 07/11/2021 07:22 BLOOD 5.6 LIPID PANEL TREND Collection DT Spec CHOL HDL CHO/HDL LDL-c TRIG 07/17/2024 07:45 SERUM 165 63 H 2.6 91 54 01/14/2024 07:32 SERUM 179 79 H 2.3 86 69 06/28/2023 07:32 SERUM 142 43 3.3 82 83 07/21/2022 07:33 SERUM 171 67 H 2.6 87 85 07/11/2021 07:22 SERUM 229 H 82 H 2.8 120 134 LIVER PANEL TREND Collection DT Spec AST ALT T BILI ALK TROY T. PROT ALBUMIN 07/17/2024 07:45 SERUM 18 17 0.3 52 6.6 3.7 01/14/2024 07:32 SERUM 22 22 0.5 54 7.7 4.2 07/26/2023 07:31 SERUM 45 H 90 H 0.4 77 7.4 4.0 06/28/2023 07:32 SERUM 51 H 83 H 0.5 85 7.5 4.0 07/21/2022 07:33 SERUM 20 23 0.6 50 7.6 4.3 Collection DT Spec TSH 07/17/2024 07:45 SERUM 0.92 HISTORY: PERIOD OF SERVICE - [facility] [employer] FROM Feb TO Mar COMBAT SERVICE INDICATED: No VITAL SIGNS: Blood Pressure 133/83 (08/17/2024 08:35) Pulse 61 (08/17/2024 08:35) Respiration 18 (08/17/2024 08:35) Pulse Oximetry 99% (08/17/2024 08:35) Temperature 98.1 F [36.7 C] (08/17/2024 08:35) Pain 0 (08/17/2024 08:35) Height 68 in [172.7 cm] (08/17/2024 08:35) Weight 177 lb [80.29 kg] (08/17/2024 08:35) BMI BMI: 27.0 REVIEW OF SYSTEMS: ENT: No sore throat, no cough CARDIOVASCULAR: No chest pain, no palpitations RESPIRATORY: No SOB, no wheezing GASTROINTESTINAL: No abd pain, no N/V/D GENITOURINARY: No urinary symptoms MUSCULOSKELETAL: No joint pain PSYCHIATRIC: No anxiety, no depression NEUROLOGIC: No H/A, no numbness, no weakness EXAMINATION: GENERAL: WD/WN in NAD HEENT: Moist mucosa NECK: Supple, no LN's, no carotid bruits HEART: RRR, S1-S2, no murmurs LUNGS: CTA B/L ABDOMEN: Soft, NT/ND, + BS x 4 Quads EXTREMITIES: FROM x 4 NEUROLOGIC: AAO x3, no focal findings PSYCHIATRIC: Good eye contact, affect normal ASSESSMENT/PLAN: Adult Annual General Wellness Exam -advised eye exams yearly and dental exams Q6 mths prn -advised regular CV exercise for 30 mins on most days of the week -advised heart healthy well balanced diet and lifestyle habits 1. Hyperlipidemia: well controlled on rosuvastatin 10mg/QHS Collection DT Spec CHOL HDL CHO/HDL LDL-c TRIG 07/17/2024 07:45 SERUM 165 63 H 2.6 91 54 2. Prediabetes: advised to reduce carbs/simple sugars in diet FBS 103 - A1c 5.7% 3. Hx Abnormal TSH Levels: currently WNL 4. Thyroid Nodule: left thyroid lobe upper pole, will order updated screening 07/20/23 Thyroid U/S Impression: Small overall size [...] Differences in technique can preclude direct comparisons. 5. Alcohol Use D/O: vodka & beer, drinks when he golfs 6. Cannabis Dependence: smokes daily 7. BPH: on finasteride 5mg/day (cycles one month on, one month off), managed by Dr Rodriguez 8. Prostate CA: Grade Group 1, low risk, single core positive Pancho 3 + 3, under surveillance by Dr Real, last OV 02/04/24 PSA: 4.18 9. Erectile Dysfunction: on tadalafil 5mg/daily (gets filled at outside pharm)- prescribed by urology 10. Sleep Apnea: noncompliant with CPAP, intolerant to machine/mask 11. Colonoscopy Screening: UTD, due 2026 12. Right Shoulder Pain: MRI shoulder ordered by Dr Robledo/ALONA 09/18/23, dxed with right shoulder subacromial impingmenet/bursitis and acromioclavicular joint arthrosis, he was advised conservative measures and to treat flareups with ibuprofen and/or tylenol prn, seen by [facility] for his right shoulder pain on 09/21/23 whereby he rec'd a CSI by Dr Robledo 04/29/22 Xray right shoulder: mild degenerative changes of the AC joint, no fracture or dislocation seen. -he c/o a recent flare-up of right shoulder pain, advised Aleve Q12 & Tylenol 1000mg TID x 7 days FOLLOW UP: 6 mths - Lipids/PreDM/TFT's - FBW prior ========= UPCOMING APPOINTMENTS: 09/04/2024 09:00 CWM/SO/MHC/ISAAC No barriers; Patient understands and agrees to current treatment plan. If pt has any questions, concerns, or changes in current health status he/she will call or come in to the [facility]. BMI>30/>24.99 High Risk: Patient declines to discuss weight management. Patient declined weight discussion. Discussed revisiting at a future visit. Medication Reconciliation: Outpatient: Has the patient been [...] Remote Allergy/ADR Data available for this patient [facility] TRAMADOL Med Recon NoGlossary (Tool #1) INCLUDED IN THIS LIST: Alphabetical [...] display of VA prescriptions dispensed from another [place] or [facility] facility (remote) is limited to active outpatient prescription entries matched to National Drug File at the originating site and may not include some items such as investigational drugs, compounds, etc. NOT INCLUDED IN THIS LIST: Medications self-entered by the patient into personal health records (i.e. byUs) are NOT included in this list. Non-VA medications documented outside this [place], remote inpatient orders (regardless of status) and remote clinic medications are NOT included in this list. The patient and provider must always discuss medications the patient is taking, regardless of where the medication was dispensed or obtained. ------ OUTPT FINASTERIDE 5MG TAB (Status = Active) TAKE ONE TABLET BY MOUTH ONCE DAILY FOR ENLARGED PROSTATE Rx# [id number] Last Released: 08/08/24 Qty/Days Supply: Rx Expiration Date: 04/27/25 Refills Remainin Indication: FOR ENLARGED PROSTATE OUTPT ROSUVASTATIN CA 20MG TAB (Status = Active) TAKE ONE-HALF TABLET BY MOUTH AT BEDTIME FOR CHOLESTEROL Rx# [id number] Last Released: 07/18/24 Qty/Days Supply: Rx Expiration Date: 03/17/25 Refills Remainin Indication: FOR HIGH CHOLESTEROL Non-VA TADALAFIL 5MG TAB TAKE ONE TABLET BY MOUTH ONCE DAILY NEEDED Non-VA medication not recommended by VA provider. Patient wants to buy from Non-VA pharmacy. Medication prescribed by Non-VA provider. ------ SUPPLIES ------ OUTPT ELECTRODE SPRAY,SIGNASPRAY (Status = Active) APPROPRIATE AMOUNT TOPICALLY DIRECTED BY PROVIDER FOR USE WITH ALPHA-STIM THERAPY (SIGNA SPRAY REPLACES ALPHA-STIM SOLUTION) Rx# [id number] Last Released: 06/22/24 Qty/Days Supply: 250/90 Rx Expiration Date: 06/23/25 Refills Remainin Indication: FOR USE WITH ALPHA-STIM THERAPY /isak/ KEON VILLAVICENCIO MD Primary Care Physician Signed: 08/17/2024 09:12 09/14/2024 ADDENDUM STATUS: COMPLETED Called pt to discuss thyroid U/S results performed 09/04/24. This was performed to moniter a left upper thyroid nodule. Previously on 07/22/23 it measured 0.8cm. 09/04/24 Thyroid U/S Impression: 1.1 cm left superior TR 5 nodule either new or increased in size compared to prior exam (which was 0.8cm). Recommendation: TR5 - 7 or more points: FNA if greater than or equal to 1 cm. Follow if greater than or equal to 0.5 annually for up to 5 years. He was unavailable to speak to. I left a very detailed message explaining everything. Will place CC consult with interventional radiology. Advised him to call me if he has any further questions. /isak/ KEON VILLAVICENCIO MD Primary Care Physician Signed: 09/15/2024 12:45 KEON VILLAVICENCIO
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
--- OUTSIDE RECORDS SUMMARY | 2024-11-30 09:03 | XMS_ITS ---
Author Name [facility] [place] Organization [place] Address [address] [place] [address] Care Team Providers Care Special Education Bus Driver Name Role Phone KEON VILLAVICENCIO Primary Care [...] Herring's Name Patient's Relationship to Policy Herring [facility] MEDICAID MEDICAID MEDIC AID Aug 30, 2014 MEDICAI D [id number] JARON PARKER PATIENT Selected Encounter This section includes the information on record at [place] for the Encounter. Date/Time Encounter Type Encounter Description Reason Pro vider Source Jul 24, 2024 06:57 AM Outpatient Encounter ADMIN PAT ACTIVTIES (MASNONCT) IHE Encounter Template Text not used by [place] Plan of Treatment: Future Appointments (+ 6 months) and Future Tests (+/- 45 days) The Plan of Treatment section includes future care activities for the patient from all [place] treatmentfacilities. This section includes future appointments and future orders which are active, pending or scheduled. Future Appointments This section includes appointments that were scheduled to occur 6 months from the date of the Encounter, up to a maximum of 20 appointments. The data comes from all [place] treatment facilities. Appointment Date/Time Appointment Type Appointme nt Facility Name Jul 31, 2024 09:00 AM AMBULATORY - PSYCHIATRY [facility] Aug 08, 2024 08:30 AM AMBULATORY - MEDICINE [place] [facility] [place] [facility] Aug 17, 2024 08:30 AM AMBULATORY - MEDICINE [place] [facility] [place] [facility] Sep 04, 2024 09:30 AM AMBULATORY - NONE [place] [facility] [place] [facility] Sep 14, 2024 09:00 AM AMBULATORY - PSYCHIATRY [facility] Oct 09, 2024 09:00 AM AMBULATORY - PSYCHIATRY [facility] Oct 20, 2024 07:15 AM AMBULATORY - MEDICINE [place] [facility] [place] [facility] Nov 07, 2024 08:00 AM AMBULATORY - PSYCHIATRY [facility] Nov 07, 2024 08:30 AM AMBULATORY - PSYCHIATRY [facility] Nov 29, 2024 08:15 AM AMBULATORY - PSYCHIATRY [facility] Nov 29, 2024 09:00 AM AMBULATORY - PSYCHIATRY [facility] Dec 20, 2024 08:15 AM AMBULATORY - PSYCHIATRY [facility] Dec 27, 2024 09:00 AM AMBULATORY - PSYCHIATRY [facility] Lab Results: +/- 30 days of the encounter This section includes the Chemistry and Hematology Lab Results on record with [place] for the patient. Radiology Reports and Pathology Reports are provided separately, in subsequent sections. Lab Results This section contains the Chemistry/Hematology Results that were resulted 30 days before or 30 daysafter the date of the Encounter. Date/Time Source Result Type Result - Unit Interpretation Reference Range Comment Jul 17, 2024 07:45 AM [facility] THYROID T4 FREE(FT4) (WROX) Specimen Type: SERUM No comment entered. Ordering Provider: KEON VILLAVICENCIO Report Released Date/Time: January 26, 2024 06:12 AM Reporting [facility]: [facility] [place] [facility] [address] [facility] [address] Performing Lab: [facility] [place] [facility] [address] [facility] [address] THYROID T4 FREE(FT4) (WROX) 1.01 ng/dL 0.6-1.6 Jul 17, 2024 07:45 AM [facility] TSH Specimen Type: SERUM No comment entered. Ordering Provider: KEON VILLAVICENCIO Report Released Date/Time: January 26, 2024 06:12 AM Reporting Lab: [facility] [address] [facility] [address] Performing Lab: [facility] [address] [facility] [address] TSH 0.92 u[IU]/mL 0.35-5.00 Jul 17, 2024 07:45 AM [facility] HEMOGLOBIN A1C PANEL Specimen Type: BLOOD Comment: [...] January 26, 2024 06:12 AM Reporting Lab: [facility] [address] [facility] [address] Performing Lab: [address] [address] HEMOGLOBIN A1C 5.7 H 4.0-5.6 Jul 17, 2024 07:45 AM [facility] LIPID PANEL FASTING Specimen Type: SERUM No comment entered. Ordering Provider: KEON VILLAVICENCIO Report Released Date/Time: January 26, 2024 06:12 AM Reporting Lab: [facility] [address] [address] Performing Lab: [address] [address] CHOLESTEROL 165 mg/dL TRIGLYCERIDE 54 mg/dL 0-150 LDL calculated 91 mg/dL 0-129 CHOL/HDL 2.6 HDL CHOLESTEROL 63 mg/dL H 40-60 Jul 17, 2024 07:45 AM [facility] LIVER FUNCTION Specimen Type: SERUM No comment entered. Ordering Provider: KEON VILLAVICENCIO Report Released Date/Time: January 26, 2024 06:12 AM Reporting Lab: [facility] [address] Performing Lab: [address] [address] PROTEIN,TOTAL 6.6 g/dL 6.0-8.3 ALBUMIN 3.7 g/dL 3.5-5.0 ALKALINE PHOSPHATASE 52 U/L 40-150 AST 18 U/L 5-34 ALT 17 U/L BILIRUBIN, TOTAL 0.3 mg/dL 0.2-1.2 Jul 17, 2024 07:45 AM [facility] BASIC METABOLIC PANEL (fasting) Specimen Type: SERUM No comment entered. Ordering Provider: KEON VILLAVICENCIO Report Released Date/Time: January 26, 2024 06:12 AM Reporting Lab: [facility] [address] [address] Performing Lab: [address] [address] UREA NITROGEN 12 mg/dL 7-25 GLUCOSE 103 mg/dL H 65-100 SODIUM 140 mmol/L 135-145 POTASSIUM 4.5 mmol/L 3.5-5.0 CHLORIDE 108 mmol/L 100-110 CO2 25 meq/L 20-30 CREATININE, Serum 0.98 mg/dL 0.50-1.40 eGFR(CKD-EPI 2020) 88 mL/min >60 Jul 17, 2024 07:45 AM [facility] PSA Specimen Type: SERUM No comment entered. Ordering Provider: KEON VILLAVICENCIO Report Released Date/Time: January 26, 2024 06:12 AM Reporting Lab: [facility] [address] [facility] [address] Performing Lab: [facility] [address] PSA 3.95 ng/mL 0.00-4.00 Jul 17, 2024 07:45 AM [facility] CBC AND DIFF (AUTO) Specimen Type: BLOOD No comment entered. Ordering Provider: KEON VILLAVICENCIO Report Released Date/Time: January 26, 2024 06:12 AM Reporting Lab: [address] [address] Performing Lab: [address] [address] WBC 7.58 10*3/uL 4.50-11.00 RBC 4.62 10*6/uL 4.23-5.66 HGB 13.5 g/dL 12.8-17 HCT 41.5 39.2-50.4 MCV 89.8 fL 82-99 MCHC 32.5 g/dL 30.8-35.1 PLT 296 10*3/uL 140-360 RDW-CV 13.6 12.0-16.0 MONO, ABS 0.52 10*3/uL 0.30-1.10 MCH 29.2 pg 26.2-32.6 NEUT % 41.5 L 43.7-75.8 LYMPH % 48.8 H 14.0-42.3 MONO % 6.9 5.1-13.7 EOS % 2.1 0.4-6.8 BASO % 0.4 0.1-2.0 NEUT, ABS 3.15 10*3/uL 2.20-7.60 LYMPH, ABS 3.70 10*3/uL H 1.00-3.20 EOS, ABS 0.16 10*3/uL 0.03-0.44 BASO, ABS 0.03 10*3/uL 0.01-0.13 IMMATURE GRAN % 0.3 0.0-0.7 IMMATURE GRAN, ABS 0.02 10*3/uL 0.00-0.06 NRBC % 0.0 0.0-0.0 NRBC, ABS 0.00 10*3/uL 0.00-0.00 Social History: Smoking Status (Most current) and Tobacco Use (All prior to encounter date) This section includes the most current, and the historical, smoking and tobacco- related health factors from the [place] facility where the Encounter took place. Current Smoking Status This section includes the most current smoking, or tobacco-related health factor, from the [place] facility where the Encounter took place. Date/Time Current Smoking Status Comment Facil ity Jul 18, 2020 08:23 AM [place]-TOBACCO NEVER USED [place] [facility] [facility] Advance Directives: All historical and current Section Date Range: From patient's date of to the date document was created. This section includes ALL of a patient's completed or amended [place] Advance and Rescinded Directives. The entries below indicate that a directive exists for the patient, but an actual copy is not included with this document. The data comes from all [place] facilities. Date Advance Directives Provider Source Oct 28, 2017 ADVANCE DIRECTIVE DENNEYMARI IELD Encounter Notes: All associated encounter notes This section contains the clinical notes associated to the Encounter. Date/Time Encounter Note(s) Provider Source Jul 24, 2024 06:57 AM ADMINISTRATIVE NOTE: LOCAL TITLE: ADMINISTRATIVE NOTE STANDARD TITLE: ADMINISTRATIVE NOTE DATE OF NOTE: JUL 24, 2024@06:57 ENTRY DATE: JUL 24, 2024@06:57:45 AUTHOR: JESSICA POLANCO EXP COSIGNER: URGENCY: STATUS: COMPLETED Called and left vet a letting him know that his 8:30am appt today was cancelled d/t a provider call out. /isak/ JESSICA POLANCO Signed: 07/24/2024 06:58 JESSICA POLANCO [place] [facility]
--- OUTSIDE RECORDS SUMMARY | 2024-11-30 09:03 | XMS_ITS | Data Portability ---
Author Organization [facility], [address] Address [address] [place] [address] Assessment No assessment recorded. Plan of Treatment Reminders Order Date Submit Date Provider Last Modified By Organization Details Last Modified Time Details Appointments None recorded. Lab None recorded. Referral orthopedic surgeon referral 2022 023 [email or web address] Not available 10:34:29 Procedures None recorded. Surgeries None recorded. Imaging XR, hip + pelvis, unilateral 2022 023 [facility], [address] [place] [address], [address], 12:19:42 Medication Orders Tylenol Arthritis Pain 650 mg tablet,exte nded release 2022 023 [facility] [address], [address] [place] [address], [address], 3 10:47:24 Medrol (Michele) 4 mg tablets in a dose pack 2022 023 [facility] [address], [address] [place] [address], [address], 3 10:29:05 Patient TargetsNo targets recorded. Patient Instructions Encounter Date Encounter Id Patient Instructions Last Modified By Organization Details Last Modified Time 11/20/2022 [id number] hip pain: care instructions [email or web address] Not available 11/20/2022 10:32:02 Reason for Referral Orthopedic Surgeon Referral for Pain in right hip joint Referring Physician: Gabriele Cross, Urgent Care, Encounter Date: 11/20/2022 Problems Name Problem SNOMED Code Status Onset Date Resolution Date Notes Provider Name and Address Organization Details Recorded Time Hyperlipidemia 46924294 Active 2022 CHRYSTAL NATE ny, PA - [facility] 3 09:50:55 Disorder of prostate 47417522 Active 2022 CHRYSTAL NATE ny, PA - [facility] 3 09:51:14 Problem Notes None recorded. Medical Equipment None Reported. Allergies Allergen ID Allergen Name Allergen Category Reaction Reaction Severity Criticality Documentation Date Start Date Code Code System Note Provider Name and Address Organization Details Recorded Time 645893 tramadol medicatio n Not available Not available Not available 11/20/2022 87758 RxNorm CHRYSTAL NATE ny, PA - [facility] 3 09:50:00 Medications Name Sig Start Date Stop Date Status Note LastModified by Organization Details LastModified Time prednisone 10 mg tablet TAKE 3 TABLETS BY MOUTH EVERY DAY WITH FOOD FOR 5 DAYS 11/20 completed Not Available Not Available Not Available clopidogrel 75 mg tablet TAKE 1 TABLET BY MOUTH ONCE DAILY active Not Available Not Available No t Available ciprofloxac in 500 mg tablet TAKE 1 TABLET BY MOUTH TWICE DAILY FOR 3 DAYS 11/20 completed Not Available Not Available Not Available aspirin 81 mg tablet,rosemary yed release TAKE 1 TABLET BY MOUTH ONCE DAILY FOR 90 DAYS active Not Available Not Available No t Available ofloxacin 0.3 % ear drops INSTILL 5 DROPS INTO RIGHT EAR TWICE DAILY active Not Available Not Available No t Available baclofen 10 mg tablet TAKE 1 TABLET BY MOUTH AT BEDTIME NEEDED FOR SHOULDER SPASM DO NOT DRIVE, IT MIGHT CAUSE DROWSINES S active Not Available Not Available No t Available methylpredn isolone 4 mg tablets in a dose pack TAKE BY MOUTH DIRECTED ON INSIDE OF PACKAGE active Not Available Not Available No t Available naproxen 500 mg tablet TAKE 1 TABLET BY MOUTH TWICE DAILY WITH FOOD NEEDED FOR PAIN active Not Available Not Available No t Available rosuvastati n 10 mg tablet TAKE 1 TABLET BY MOUTH ONCE DAILY AT BEDTIME active Not Available Not Available No t Available tadalafil 5 mg tablet TAKE 1 TABLET BY MOUTH ONCE DAILY FOR PROSTATE FOR 90 DAYS active Not Available Not Available No t Available 8 Hour Pain Reliever 650 mg tablet,exte nded release TAKE 2 TABLETS BY MOUTH EVERY 8 HOURS NEEDED active Not Available Not Available No t Available Vitals Date Recorded Body height Body mass index (BMI) Body weight Oxygen saturation Oxygen saturation in Arterial blood by Pulse oximetry Heart rate Respiratory rate Body temperature Systolic blood pressure Diastolic blood pressure Provider Name and Address Organization Details Last Updated DateTime 172.72 cm 26.6 kg/m2 21528.6 6 g 99 % 99 % 88 /min 16 /min 97.5 [degF] 134 mm[Hg] 87 mm[Hg] CHRYSTAL HAYNES - [facility] 09:49:08 Social History Question Answer Notes LastModified by [email or web address] ion Details LastModified Time Tobacco Smoking Status Never Smoker CHRYSTAL ny [place] - [facility] 11/20/2022 09:51:41 What Is Your Level Of Alcohol Consumption? None Information not available 11/20/2022 Are You Currently Employed? Yes Information not available 11/20/2022 Do You Use Any Illicit Or Recreational Drugs? No Information not available 11/20/2022 Have You Recently Traveled Abroad? No Information not available 11/20/2022 Are You Currently In School? No Information not available 11/20/2022 Sex: Unknown Functional Status None recorded. Mental Status None recorded. Family History Nothing Reported. Medical History No medical history recorded. Past Encounters Encounter ID Performer Location Encounter Start Date Encounter Closed Date Diagnosis/Indication Diagnosis SNOMED-CT Code Diagnosis ICD10 Code Diagnosis Note [id number] [address] [place] [address] 06/18/2020 19:37:15 06/18/2020 20:29:54 [id number] [address] [place] [address] 02/17/2021 15:33:23 02/17/2021 16:18:16 [id number] [address] [place] [address] 01/22/2021 11:41:44 01/22/2021 15:00:36 [id number] [address] [facility] [place], [place] [address] 09/12/2020 15:39:34 09/12/2020 18:34:15 [id number] [address] [place] [address] 03/17/2019 11:49:06 03/17/2019 13:02:14 [id number] [address] [facility], [place] [address] 12/11/2021 08:02:19 12/11/2021 08:48:23 [id number] [address] [facility], [place] [address] 09/18/2020 08:02:26 09/18/2020 08:28:18 [id number] [address] [facility], [place] [address] 05/06/2021 08:06:16 05/06/2021 09:33:27 [id number] [address] [place] [address] 06/18/2020 19:41:50 06/18/2020 20:29:59 [id number] Gabriele Cross DO [address] [facility], [place] [address] 11/20/2022 09:30:56 11/20/2022 10:34:29 Pain in right hip joint 8412325647 82341 M25.551 XRAYhe cannot have NSAID 2/2 plavixwill Rx medrol dose pakand tylenolrev iewed med side effectstop ical analgesiar estice/hea t prnOrtho referral Patient advised to follow up as needed for worsening symptoms or no improvemen t. Health Concerns Section Related Observation LastModified by Organization Detai ls LastModified Time None Recorded Concern Status LastModified by Organization Details LastModified Time None Recorded Advance Directives Directive None Recorded Payers Encounter Date Sequence Insurance Name Policy Number Policy Herring Covered Member ID Herring Member ID Guarantor Name 01/22/2021 1 [place] [employer] [place] 131 Roberto Gibbs [id number] Roberto Bautista Sai 02/17/2021 1 [place] [place] 131 Roberto Reyestcher [id number] Roberto Bautista Sai 05/06/2021 1 [place] 131 Roberto Reyestcher [id number] Roberto Hubbarder 11/20/2022 [facility] Roberto Gibbs [id number] Roberto Gibbs Notes Date Note Type Note Provider Name and Address Organization Details Recorded Time 11/20/2022 text/html 62 yo male x1 week ago he noted R side groin but was also having issues with painful urination.He called urology and was prescribed abx (unsure what) x3 days for ? prostatitis. Pain improved and UTI Sx resolved For the past 2 days he noted pain radiated to r leg and hipNo redness/rashNO bruisingno swelling, + pain with movementtried heat/ice w/o reliefno trauma to hip/leg Gabriele Cross, DO [address] [place], [address], [place] - [facility] 11/20/2022 10:47:27
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
[2024-11-30 14:34] LABS: Prostate Specific Antigen 4.41 ng/mL (<0.05-4.0)
== END 2024-11-30 08:52 | disposition home or self-care (01) ==
LOC: HO.LAB 08:51
PROVIDERS: PCP Family Medicine; Visit Provider Urology
DX: C61 Malignant neoplasm of prostate (principal); Z12.5 Encounter for screening for malignant neoplasm of prostate
CPT/HCPCS: 36415; 84153

== ENCOUNTER → 2024-12-06 08:13 | Outpatient (BNV) | payer OTHER, SELFPAY | PROVIDERS: PCP Family Medicine; Visit Provider Radiology Diagnostic Radiology | DX: C61 Malignant neoplasm of prostate (principal) | CPT/HCPCS: 72197 ==

== ENCOUNTER 2024-12-06 08:19 | Outpatient (REF) | payer OTHER, SELFPAY ==
--- NOTE | ~2024-12-06 | MR_ITS ---
EXAMINATION: MR PROSTATE WITHOUT THEN WITH IV CONTRAST HISTORY: C61 - Malignant neoplasm of prostate TECHNIQUE: 1.5T body coil survey of the pelvis was performed. Phase array coil imaging of the prostate was performed in multiplanar high resolution axial, coronal, sagittal fast spin echo T2 and axial T1 weighted imaging sequences. Axial diffusion imaging at intermediate and high field performed with ADC mapping. Next, 8 mL Gadavist was given by intravenous infusion, and dynamic axial imaging performed. COMPARISON: There are no prior studies for comparison. CLINICAL DATA: Most recent PSA: 4.41 ng/mL on 11/30/2024 PSA Density: 0.13 ng/mL squared Prostate Biopsy: Positive biopsy on 01/18/2023 with a Carroll score 3+3 = 6. FINDINGS: Prostate size: 4.3 x 4.3 x 3.4 cm. Calculated prostate volume is 32.7 mL. Hemorrhage: None. Transitional Zone: There is moderate heterogeneous nodular hypertrophy of the transitional zone. Peripheral Zone: There are areas of interest in the peripheral zone as described below: Lesion #1, measuring 4 mm in the left posteromedial peripheral zone in the mid gland/apex (series 7, images 22-23): DWI PI-RADS v2.1 score: 4 T2 PI-RADS v2.1 score: 4 DCE PI-RADS v2.1 score: + Overall PI-RADS v2.1 score: 4 Capsular contact: Yes Extracapsular extension: None Seminal vesicle invasion: None Neurovascular bundle involvement: None Lesion #2, measuring 5 mm in the right peripheral zone at the apex adjacent to the urethra (series 7, image 25): DWI PI-RADS v2.1 score: 4 T2 PI-RADS v2.1 score: 4 DCE PI-RADS v2.1 score: - Overall PI-RADS v2.1 score: 4 Capsular contact: No Extracapsular extension: None Seminal vesicle invasion: None Neurovascular bundle involvement: None Seminal Vesicles/Ejaculatory Ducts: Symmetric and normal in signal and caliber. Pelvic Lymph Nodes: No obturator or internal iliac lymph nodes meeting size criteria for adenopathy. Marrow Signal: Normal marrow signal and enhancement without focal lesion identified. MR/MR Prostate wo/w con IMPRESSION: There are 2 areas of interest in the peripheral zone as described above, suspicious for clinically significant prostate carcinoma. PI-RADS 4: High (clinically significant cancer is likely to be present) PI-RADS Assessment Categories PI-RADS 1: Very low (clinically significant cancer is highly unlikely to be present) PI-RADS 2: Low (clinically significant cancer is unlikely to be present) PI-RADS 3: Intermediate (the presence of clinically significant cancer is equivocal) PI-RADS 4: High (clinically significant cancer is likely to be present) PI-RADS 5: Very high (clinically significant cancer is highly likely to be present) [employer]. MR Prostate Imaging Reporting and Data System version 2.1. [email or web address] Electronically signed by: Nathan Mahmood MD 12/06/2024 09:57 AM EDT
--- OUTSIDE RECORDS SUMMARY | 2024-12-06 08:29 | XMS_ITS | Continuity of Care Document ---
Author Name [facility] Organization [facility] Care Team Providers Care Corporate Safety Coordinator Name Role Phone DOD-[facility] Unavailable Unavailable Problems Combined list of problems from Department of Defense and Veterans Affairs facilities. It does not include entries that were removed or entered in error. Problem Status Onset Date Problem Type Date of Resolution Comments Source Chronic Post-Traumatic Stress Disorder ([facility] [id number]) Active 981 Condition [facility] [place] VILLAVICENCIO Comment: On clopidogrel x 1 year [place] Hypercholesterolemia Active Condition V [facility] [...] annually for 5 yrs due to size [place] Outside Providers Inactive Condition 07/06/2023 A pr 2021 Entered By: KEON VILLAVICENCIO Comment: [place] [facility]. P: [phone], F: [phone] [place] Diagnosis: ICD-10-CM G47.00 Insomnia, unspecified Active Diagnosis [facility] Diagnosis: ICD-10-CM F43.12 Post-traumatic stress disorder, chronic Active Diagnosis [place] Diagnosis: ICD-10-CM E78.5 Hyperlipidemia, unspecified Active Diagnosis [place] Diagnosis: ICD-10-CM G47.30 Sleep apnea, unspecified Active Diagnosis [facility] Diagnosis: ICD-10-CM F63.81 Intermittent explosive disorder Active Diagnosis [facility] Diagnosis: ICD-10-CM Z71.89 Other specified counseling Active Diagnosis [place] Diagnosis: ICD-10-CM R94.5 Abnormal results of liver function studies Active Diagnosis [facility] Medications Combined list of outpatient medications from [...] DAILY FOR ENLARGED PROSTATE ORAL ACTIVE 04/27/2025 [id number] ROSE MARIE VILLAVICENCIO SA 2023 90 [facility] [place] [facility] FINASTERIDE 5MG TAB TAKE ONE TABLET BY MOUTH ONCE DAILY ORAL DISCONT INUED BY PROVIDE R 03/29/2024 [id number] BELIA MATTHEWS MD 2022 90 [facility] QUETIAPINE FUMARATE 25MG TAB TAKE ONE TABLET BY MOUTH AT BEDTIME FOR INSOMNIA AND MOOD ORAL ACTIVE 12/29/2024 [id number] 5 VIK SIMMONS 2024 30 [facility] ROSUVASTATI N CA 20MG TAB TAKE ONE-HALF TABLET BY MOUTH AT BEDTIME FOR CHOLESTE ROL ORAL ACTIVE 10/24/2025 [id number] ROSE MARIE VILLAVICENCIO SA 2024 45 [facility] ROSUVASTATI N CA 20MG TAB TAKE ONE-HALF TABLET BY MOUTH AT BEDTIME FOR CHOLESTE ROL ORAL DISCONT INUED 03/17/2025 [id number] ROSE MARIE VILLAVICENCIO SA 2023 45 [facility] ROSUVASTATI N CA 20MG TAB TAKE ONE-HALF TABLET BY MOUTH AT BEDTIME FOR CHOLESTE ROL ORAL 11/05/2023 [id number] ROSE MARIE VILLAVICENCIO SA 2022 45 [facility] TADALAFIL 5MG TAB TAKE ONE TABLET BY MOUTH ONCE DAILY NEEDED ORAL ACTIVE ROSE MARIE VILLAVICENCIO SA 2022 [facility] TRAZODONE HCL 100MG TAB TAKE ONE-HALF TABLET BY MOUTH AT BEDTIME NEEDED FOR INSOMNIA ASSOCIAT ED WITH DEPRESSI ON MAY TAKE ANOTHER ONE-HALF OF A TABLET IF THE FIRST HALF IS NOT EFFECTIV E ORAL DISCONT INUED BY PROVIDE R 11/08/2025 [id number] 5 VIK SIMMONS 2024 90 [place] Allergies, Adverse Reactions, Alerts Combined list of allergies from Department of Defense and Veterans Affairs facilities. It does not include entries that were removed or entered in error. Substance Category Reaction Severity Reaction type Status Date Reported Comments Source TRAMADOL Propensity to adverse reactions to drug (finding) active 7 [facility] Immunizations Combined list of available immunizations from the Department of Defense and Veterans Affairs facilities. Immunization Series Date Given Administered By Site Reaction Lot Number CVX Code Drug Broodmare Barn Groom Status Comments Source INFLUENZA, INJECTABLE, QUADRIVALENT, PRESERVATIVE FREE 2022 MENG TRIVEDI ON M LEFT DELTO ID [id number] A 150 complet ed [place] INFLUENZA, INJECTABLE, QUADRIVALENT, PRESERVATIVE FREE 2021 150 complet ed [place] INFLUENZA, UNSPECIFIED FORMULATION 2019 88 complet [facility] INFLUENZA, INJECTABLE, QUADRIVALENT, PRESERVATIVE FREE 2018 150 complet ed Site: Left Deltoid [place] INFLUENZA, INJECTABLE, QUADRIVALENT, PRESERVATIVE FREE 2017 150 complet ed Partner: [facility]. Administe red by: [facility] Clinician (NPI=Not Provided) . Partner 4 Lot#: [id number] Mfr: [employer] [facility] INFLUENZA, SEASONAL, INJECTABLE 2016 141 complet ed [...] AM Reporting Lab: [facility] [place] [facility] [address] [address] Performing Lab: [facility] [place] [facility] [address] [facility] [address] [facility] [place] [facility] TSH THYROTROPIN [UNITS/VOLU ME] IN SERUM OR PLASMA 0.92 u[IU]/ mL 0.35 - 5.00 07/17 Specimen Type: SERUM No comment entered. Ordering Provider: KEON VILLAVICENCIO Report Released Date/Time: January 26, 2024 06:12 AM Reporting Lab: [facility] [place] [facility] [address] [address] Performing Lab: [place] [facility] [place] [facility] [address] [address] [facility] [place] [facility] HEMOGLOBI N A1C PANEL HEMOGLOBIN A1C/HEMOGLO BIN.TOTAL [...] AM Reporting Lab: [facility] [place] [address] [address] Performing Lab: [facility] [place] [facility] [address] [address] [facility] [place] [facility] LIPID PANEL FASTING CHOLESTEROL [MASS/VOLUM E] IN SERUM OR PLASMA 165 mg/dL 07/17 Specimen Type: SERUM No comment entered. Ordering Provider: KEON VILLAVICENCIO Report Released Date/Time: January 26, 2024 06:12 AM Reporting Lab: [facility] [place] [facility] [address] [address] Performing Lab: [facility] [place] [facility] [address] [address] [facility] [place] [facility] LIPID PANEL FASTING TRIGLYCERID E [MASS/VOLUM E] IN SERUM OR PLASMA 54 mg/dL 0 - 150 07/17 Specimen Type: SERUM No comment entered. Ordering Provider: KEON VILLAVICENCIO Report Released Date/Time: January 26, 2024 06:12 AM Reporting Lab: [facility] [place] [facility] [address] [address] Performing Lab: [facility] [place] [facility] [address] [address] [facility] [place] [facility] LIPID PANEL FASTING CHOLESTEROL IN LDL [MASS/VOLUM E] IN SERUM OR PLASMA BY CALCULATION 91 mg/dL 0 - 129 07/17 Specimen Type: SERUM No comment entered. Ordering Provider: KEON VILLAVICENCIO Report Released Date/Time: January 26, 2024 06:12 AM Reporting Lab: [facility] [place] [address] [address] Performing Lab: [place] [facility] [place] [address] [address] [facility] LIPID PANEL FASTING CHOLESTEROL .TOTAL/CHOL ESTEROL IN HDL [MASS RATIO] IN SERUM OR PLASMA 2.6 07/17 Specimen Type: SERUM No comment entered. Ordering Provider: KEON VILLAVICENCIO Report Released Date/Time: January 26, 2024 06:12 AM Reporting Lab: [facility] [place] [address] [address] Performing Lab: [facility] [place] [address] [address] [facility] [place] [facility] LIPID PANEL FASTING CHOLESTEROL IN HDL [MASS/VOLUM E] IN SERUM OR PLASMA 63 mg/dL 40 - 60 07/17 H Specimen Type: SERUM No comment entered. Ordering Provider: KEON VILLAVICENCIO Report Released Date/Time: January 26, 2024 06:12 AM Reporting Lab: [facility] [place] [address] [address] Performing Lab: [facility] [place] [facility] [address] [address] [facility] [place] [facility] LIVER FUNCTION PROTEIN [MASS/VOLUM E] IN SERUM OR PLASMA 6.6 g/dL 6.0 - 8.3 07/17 Specimen Type: SERUM No comment entered. Ordering Provider: KEON VILLAVICENCIO Report Released Date/Time: January 26, 2024 06:12 AM Reporting Lab: [facility] [place] [facility] [address] [address] Performing Lab[facility] [place] [facility] [address] [address] [facility] [place] [facility] LIVER FUNCTION ALBUMIN [MASS/VOLUM E] IN SERUM OR PLASMA 3.7 g/dL 3.5 - 5.0 07/17 Specimen Type: SERUM No comment entered. Ordering Provider: KEON VILLAVICENCIO Report Released Date/Time: January 26, 2024 06:12 AM Reporting Lab: [facility] [place] [facility] [address] [address] Performing Lab: [facility] [place] [facility] [address] [address] [facility] [place] [facility] LIVER FUNCTION ALKALINE PHOSPHATASE [ENZYMATIC ACTIVITY/VO LUME] IN SERUM OR PLASMA 52 U/L 40 - 150 07/17 Specimen Type: SERUM No comment entered. Ordering Provider: KEON VILLAVICENCIO Report Released Date/Time: January 26, 2024 06:12 AM Reporting Lab: [facility] [place] [facility] [address] [address] Performing Lab: [facility] [place] [facility] [address] [address] [facility] [place] [facility] LIVER FUNCTION ASPARTATE AMINOTRANSF ERASE [ENZYMATIC ACTIVITY/VO LUME] IN SERUM OR PLASMA 18 U/L 5 - 34 07/17 Specimen Type: SERUM No comment entered. Ordering Provider: KEON VILLAVICENCIO Report Released Date/Time: January 26, 2024 06:12 AM Reporting Lab: [facility] [place] [facility] [address] [address] Performing Lab: [facility] [place] [facility] [address] [address] [facility] [place] [facility] LIVER FUNCTION ALANINE AMINOTRANSF ERASE [ENZYMATIC ACTIVITY/VO LUME] IN SERUM OR PLASMA 17 U/L 07/17 Specimen Type: SERUM No comment entered. Ordering Provider: KEON VILLAVICENCIO Report Released Date/Time: January 26, 2024 06:12 AM Reporting Lab: [facility] [place] [facility] [address] [address] Performing Lab: [facility] [place] [facility] [address] [address] [facility] [place] [facility] LIVER FUNCTION BILIRUBIN.T OTAL [MASS/VOLUM E] IN SERUM OR PLASMA 0.3 mg/dL 0.2 - 1.2 07/17 Specimen Type: SERUM No comment entered. Ordering Provider: KEON VILLAVICENCIO Report Released Date/Time: January 26, 2024 06:12 AM Reporting Lab: [facility] [place] [facility] [address] [address] Performing Lab: [facility] [place] [facility] [address] [address] [facility] [place] [facility] BASIC METABOLIC PANEL (fasting) UREA NITROGEN [MASS/VOLUM E] IN SERUM OR PLASMA 12 mg/dL 7 - 25 07/17 Specimen Type: SERUM No comment entered. Ordering Provider: KEON VILLAVICENCIO Report Released Date/Time: January 26, 2024 06:12 AM Reporting Lab: [facility] [place] [facility] [address] [address] Performing Lab: [facility] [place] [facility] [address] [address] [facility] [place] [facility] BASIC METABOLIC PANEL (fasting) GLUCOSE [MASS/VOLUM E] IN SERUM OR PLASMA 103 mg/dL 65 - 100 07/17 H Specimen Type: SERUM No comment entered. Ordering Provider: KEON VILLAVICENCIO Report Released Date/Time: January 26, 2024 06:12 AM Reporting Lab: [facility] [place] [facility] [address] [address] Performing Lab: [facility] [place] [facility] [address] [address] [facility] [place] [facility] BASIC METABOLIC PANEL (fasting) SODIUM [MOLES/VOLU ME] IN SERUM OR PLASMA 140 mmol/L 135 - 145 07/17 Specimen Type: SERUM No comment entered. Ordering Provider: KEON VILLAVICENCIO Report Released Date/Time: January 26, 2024 06:12 AM Reporting Lab: [facility] [place] [facility] [address] [address] Performing Lab: [facility] [place] [facility] [address] [address] [facility] [place] [facility] BASIC METABOLIC PANEL (fasting) POTASSIUM [MOLES/VOLU ME] IN SERUM OR PLASMA 4.5 mmol/L 3.5 - 5.0 07/17 Specimen Type: SERUM No comment entered. Ordering Provider: KEON VILLAVICENCIO Report Released Date/Time: January 26, 2024 06:12 AM Reporting Lab: [facility] [place] [facility] [address] [address] Performing Lab: [facility] [place] [facility] [address] [address] [facility] [place] [facility] BASIC METABOLIC PANEL (fasting) CHLORIDE [MOLES/VOLU ME] IN SERUM OR PLASMA 108 mmol/L 100 - 110 07/17 Specimen Type: SERUM No comment entered. Ordering Provider: KEON VILLAVICENCIO Report Released Date/Time: January 26, 2024 06:12 AM Reporting Lab: [facility] [place] [facility] [address] [address] Performing Lab: [facility] [place] [facility] [address] [address] [facility] [place] [facility] BASIC METABOLIC PANEL (fasting) CARBON DIOXIDE, TOTAL [MOLES/VOLU ME] IN SERUM OR PLASMA 25 meq/L 20 - 30 07/17 Specimen Type: SERUM No comment entered. Ordering Provider: KEON VILLAVICENCIO Report Released Date/Time: January 26, 2024 06:12 AM Reporting Lab: [facility] [place] [facility] [address] [address] Performing Lab: [facility] [place] [facility] [address] [address] [facility] [place] [facility] BASIC METABOLIC PANEL (fasting) CREATININE [MASS/VOLUM E] IN SERUM OR PLASMA 0.98 mg/dL 0.50 - 1.40 07/17 Specimen Type: SERUM No comment entered. Ordering Provider: KEON VILLAVICENCIO Report Released Date/Time: January 26, 2024 06:12 AM Reporting Lab: [facility] [place] [address] [address] Performing Lab: [facility] [place] [address] [address] [facility] [place] [facility] BASIC METABOLIC PANEL (fasting) GLOMERULAR FILTRATION RATE/1.73 SQ M.PREDICTED [VOLUME RATE/AREA] IN SERUM, PLASMA OR BLOOD BY CREATININE- BASED FORMULA (CKD-EPI 2020) 88 mL/min 60 07/17 Specimen Type: SERUM No comment entered. Ordering Provider: KEON VILLAVICENCIO Report Released Date/Time: January 26, 2024 06:12 AM Reporting Lab: [facility] [place] [address] [address] Performing Lab: [facility] [place] [address] [address] [facility] [place] [facility] PSA PROSTATE SPECIFIC AG [MASS/VOLUM E] IN SERUM OR PLASMA 3.95 ng/mL 0.00 - 4.00 07/17 Specimen Type: SERUM No comment entered. Ordering Provider: KEON VILLAVICENCIO Report Released Date/Time: January 26, 2024 06:12 AM Reporting Lab: [facility] [place] [address] [address] Performing Lab: [facility] [place] [address] [address] [facility] CBC AND DIFF (AUTO) LEUKOCYTES [#/VOLUME] IN BLOOD BY AUTOMATED COUNT 7.58 10*3/u L 4.50 - 11.00 07/17 Specimen Type: BLOOD No comment entered. Ordering Provider: KEON VILLAVICENCIO Report Released Date/Time: January 26, 2024 06:12 AM Reporting Lab: [facility] [place] [facility] [address] [address] Performing Lab: [facility] [place] [facility] [address] [address] [facility] CBC AND DIFF (AUTO) ERYTHROCYTE S [#/VOLUME] IN BLOOD BY AUTOMATED COUNT 4.62 10*6/u L 4.23 - 5.66 07/17 Specimen Type: BLOOD No comment entered. Ordering Provider: KEON VILLAVICENCIO Report Released Date/Time: January 26, 2024 06:12 AM Reporting Lab: [facility] [place] [facility] [address] [address] Performing Lab: [facility] [place] [facility] [address] [address] [facility] CBC AND DIFF (AUTO) HEMOGLOBIN [MASS/VOLUM E] IN BLOOD 13.5 g/dL 12.8 - 17 07/17 Specimen Type: BLOOD No comment entered. Ordering Provider: KEON VILLAVICENCIO Report Released Date/Time: January 26, 2024 06:12 AM Reporting Lab: [facility] [place] [facility] [address] [address] Performing Lab: [facility] [place] [facility] [address] [address] [facility] CBC AND DIFF (AUTO) HEMATOCRIT [VOLUME FRACTION] OF BLOOD BY AUTOMATED COUNT 41.5 39.2 - 50.4 07/17 Specimen Type: BLOOD No comment entered. Ordering Provider: KEON VILLAVICENCIO Report Released Date/Time: January 26, 2024 06:12 AM Reporting Lab: [facility] [place] [facility] [address] [address] Performing Lab: [facility] [place] [facility] [address] [address] [facility] CBC AND DIFF (AUTO) MCV [ENTITIC VOLUME] BY AUTOMATED COUNT 89.8 fL 82 - 99 07/17 Specimen Type: BLOOD No comment entered. Ordering Provider: KEON VILLAVICENCIO Report Released Date/Time: January 26, 2024 06:12 AM Reporting Lab: [facility] [place] [facility] [address] [address] Performing Lab: [facility] [place] [facility] [address] [address] [facility] CBC AND DIFF (AUTO) MCHC [MASS/VOLUM E] BY AUTOMATED COUNT 32.5 g/dL 30.8 - 35.1 07/17 Specimen Type: BLOOD No comment entered. Ordering Provider: KEON VILLAVICENCIO Report Released Date/Time: January 26, 2024 06:12 AM Reporting Lab: [facility] [place] [facility] [address] [address] Performing Lab: [facility] [place] [facility] [address] [address] [facility] [place] [facility] CBC AND DIFF (AUTO) PLATELETS [#/VOLUME] IN BLOOD BY AUTOMATED COUNT 296 10*3/u L 140 - 360 07/17 Specimen Type: BLOOD No comment entered. Ordering Provider: KEON VILLAVICENCIO Report Released Date/Time: January 26, 2024 06:12 AM Reporting Lab: [facility] [place] [facility] [address] [address] Performing Lab: [facility] [place] [facility] [address] [address] [facility] [place] [facility] CBC AND DIFF (AUTO) ERYTHROCYTE DISTRIBUTIO N WIDTH [RATIO] BY AUTOMATED COUNT 13.6 12.0 - 16.0 07/17 Specimen Type: BLOOD No comment entered. Ordering Provider: KEON VILLAVICENCIO Report Released Date/Time: January 26, 2024 06:12 AM Reporting Lab: [facility] [place] [facility] [address] [address] Performing Lab: [facility] [place] [facility] [address] [address] [facility] CBC AND DIFF (AUTO) MONOCYTES [#/VOLUME] IN BLOOD BY AUTOMATED COUNT 0.52 10*3/u L 0.30 - 1.10 07/17 Specimen Type: BLOOD No comment entered. Ordering Provider: KEON VILLAVICENCIO Report Released Date/Time: January 26, 2024 06:12 AM Reporting Lab: [facility] [place] [facility] [address] [address] Performing Lab: [facility] [place] [facility] [address] [address] [facility] CBC AND DIFF (AUTO) MCH [ENTITIC MASS] BY AUTOMATED COUNT 29.2 pg 26.2 - 32.6 07/17 Specimen Type: BLOOD No comment entered. Ordering Provider: KEON VILLAVICENCIO Report Released Date/Time: January 26, 2024 06:12 AM Reporting Lab: [facility] [place] [facility] [address] [address] Performing Lab: [facility] [place] [facility] [address] [address] [facility] CBC AND DIFF (AUTO) NEUTROPHILS /100 LEUKOCYTES IN BLOOD BY AUTOMATED COUNT 41.5 43.7 - 75.8 07/17 L Specimen Type: BLOOD No comment entered. Ordering Provider: KEON VILLAVICENCIO Report Released Date/Time: January 26, 2024 06:12 AM Reporting Lab: [facility] [place] [facility] [address] [address] Performing Lab: [facility] [place] [facility] [address] [address] [facility] CBC AND DIFF (AUTO) LYMPHOCYTES /100 LEUKOCYTES IN BLOOD BY AUTOMATED COUNT 48.8 14.0 - 42.3 07/17 H Specimen Type: BLOOD No comment entered. Ordering Provider: KEON VILLAVICENCIO Report Released Date/Time: January 26, 2024 06:12 AM Reporting Lab: [facility] [place] [facility] [address] [address] Performing Lab: [facility] [place] [facility] [address] [address] [facility] CBC AND DIFF (AUTO) MONOCYTES/1 00 LEUKOCYTES IN BLOOD BY AUTOMATED COUNT 6.9 5.1 - 13.7 07/17 Specimen Type: BLOOD No comment entered. Ordering Provider: KEON VILLAVICENCIO Report Released Date/Time: January 26, 2024 06:12 AM Reporting Lab: [facility] [place] [facility] [address] [address] Performing Lab: [facility] [place] [address] [place] [address] [facility] CBC AND DIFF (AUTO) EOSINOPHILS /100 LEUKOCYTES IN BLOOD BY AUTOMATED COUNT 2.1 0.4 - 6.8 07/17 Specimen Type: BLOOD No comment entered. Ordering Provider: KEON VILLAVICENCIO Report Released Date/Time: January 26, 2024 06:12 AM Reporting Lab: [facility] [address] [address] Performing Lab: [facility] [place] [facility] [address] [address] [facility] CBC AND DIFF (AUTO) BASOPHILS/1 00 LEUKOCYTES IN BLOOD BY AUTOMATED COUNT 0.4 0.1 - 2.0 07/17 Specimen Type: BLOOD No comment entered. Ordering Provider: KEON VILLAVICENCIO Report Released Date/Time: January 26, 2024 06:12 AM Reporting Lab: [facility] [address] [address] Performing Lab: [facility] [address] [place] [address] [facility] CBC AND DIFF (AUTO) NEUTROPHILS [#/VOLUME] IN BLOOD BY AUTOMATED COUNT 3.15 10*3/u L 2.20 - 7.60 07/17 Specimen Type: BLOOD No comment entered. Ordering Provider: KEON VILLAVICENCIO Report Released Date/Time: January 26, 2024 06:12 AM Reporting Lab: [facility] [place] [address] [address] Performing Lab: [facility] [place] [address] [address] [facility] [place] [facility] CBC AND DIFF (AUTO) LYMPHOCYTES [#/VOLUME] IN BLOOD BY AUTOMATED COUNT 3.70 10*3/u L 1.00 - 3.20 07/17 H Specimen Type: BLOOD No comment entered. Ordering Provider: KEON VILLAVICENCIO Report Released Date/Time: January 26, 2024 06:12 AM Reporting Lab: [facility] [place] [address] [address] Performing Lab: [facility] [place] [address] [address] [facility] [place] [facility] CBC AND DIFF (AUTO) EOSINOPHILS [#/VOLUME] IN BLOOD BY AUTOMATED COUNT 0.16 10*3/u L 0.03 - 0.44 07/17 Specimen Type: BLOOD No comment entered. Ordering Provider: KEON VILLAVICENCIO Report Released Date/Time: January 26, 2024 06:12 AM Reporting Lab: [facility] [place] [address] [address] Performing Lab: [facility] [place] [address] [address] [facility] [place] [facility] CBC AND DIFF (AUTO) BASOPHILS [#/VOLUME] IN BLOOD BY AUTOMATED COUNT 0.03 10*3/u L 0.01 - 0.13 07/17 Specimen Type: BLOOD No comment entered. Ordering Provider: KEON VILLAVICENCIO Report Released Date/Time: January 26, 2024 06:12 AM Reporting Lab: [facility] [place] [address] [address] Performing Lab: [facility] [place] [facility] [address] [address] [facility] [place] [facility] CBC AND DIFF (AUTO) IMMATURE GRANULOCYTE S/100 LEUKOCYTES IN BLOOD BY AUTOMATED COUNT 0.3 0.0 - 0.7 07/17 Specimen Type: BLOOD No comment entered. Ordering Provider: KEON VILLAVICENCIO Report Released Date/Time: January 26, 2024 06:12 AM Reporting Lab: [facility] [place] [facility] [address] [address] Performing Lab[facility] [facility] [address] [address] [facility] [place] [facility] CBC AND DIFF (AUTO) IMMATURE GRANULOCYTE S [#/VOLUME] IN BLOOD 0.02 10*3/u L 0.00 - 0.06 07/17 Specimen Type: BLOOD No comment entered. Ordering Provider: KEON VILLAVICENCIO Report Released Date/Time: January 26, 2024 06:12 AM Reporting Lab: [facility] [place] [facility] [address] [address] Performing Lab: [facility] [place] [facility] [address] [address] [facility] [place] [facility] CBC AND DIFF (AUTO) NRBC % 0.0 0.0 - 0.0 07/17 Specimen Type: BLOOD No comment entered. Ordering Provider: KEON VILLAVICENCIO Report Released Date/Time: January 26, 2024 06:12 AM Reporting Lab: [facility] [place] [facility] [address] [address] Performing Lab: [facility] [place] [place] [address] [address] [facility] [place] [facility] CBC AND DIFF (AUTO) NRBC, ABS 0.00 10*3/u L 0.00 - 0.00 07/17 Specimen Type: BLOOD No comment entered. Ordering Provider: KEON VILLAVICENCIO Report Released Date/Time: January 26, 2024 06:12 AM Reporting Lab: [facility] [place] [facility] [address] [address] Performing Lab: [facility] [place] [facility] [address] [address] [facility] THYROID T4 FREE(FT4) (WROX) THYROXINE (T4) FREE [MASS/VOLUM E] IN SERUM OR PLASMA 1.03 ng/dL 0.6 - 1.6 01/13 Specimen Type: SERUM No comment entered. Ordering Provider: KEON VILLAVICENCIO Report Released Date/Time: Jul 28, 2023 05:50 AM Reporting Lab: [facility] [place] [facility] [address] [address] Performing Lab: [facility] [place] [facility] [address] [facility] [address] [facility] TSH THYROTROPIN [UNITS/VOLU ME] IN SERUM OR PLASMA 2.02 u[IU]/ mL 0.35 - 5.00 01/13 Specimen Type: SERUM No comment entered. Ordering Provider: KEON VILLAVICENCIO Report Released Date/Time: Jul 28, 2023 05:50 AM Reporting Lab: [facility] [place] [facility] [address] [address] Performing Lab: [facility] [place] [facility] [address] [address] [facility] [place] [facility] Vital Signs Combined list of inpatient and outpatient Vital Signs from Department of Defense and Veterans Affairs, ranging from 12 months to all on record, depending upon the facility. Vital Sign Value Date Comments Source SYSTOLIC BLOOD PRESSURE 133 08/17/20 24 08:35:24 [facility] [place] [facility] DIASTOLIC BLOOD PRESSURE 83 024 08:35:24 [facility] [place] PULSE OXIMETRY 99 08/17/2024 08:35:24 [facility] En[facility] [id number] 06/14 [facility] [place] En[facility] [id number] 06/25 [facility] [place] [facility] LD OFFICE O/P EST MOD 30-39 MIN [id number] Diagnos is: ICD-10- CM E78.5 Hyperli pidemia , unspeci fied ROSEANNA VILLAVICENCIO 07/06 [place] [facility] LD OFFICE O/P EST MOD 30-39 MIN [id number] Diagnos is: ICD-10- CM R94.5 Abnorma l results of liver functio n studies ROSEANNA VILLAVICENCIO 07/28 [place] [facility] En[facility] [id number] 08/09 [facility] [place] Encounter [id number] 08/17 [facility] [place] Encounter [id number] 09/16 [facility] [place] Encounter [id number] 09/21 [facility] [place] Encounter [id number] 10/05 [facility] [place] Encounter [id number] 11/03 [facility] [place] [facility]/OP EST MAY X REQ PHY/QHP [id number] Diagnos is: ICD-10- CM Z71.89 Other specifi ed community health counselor ing MADELINE DICKERSON 11/23 [place] [facility] Encounter [id number] 11/24 [facility] [place] Encounter [id number] 11/24 [facility] [place] [place] [facility] [place] CASE MANAGEMENT [id number] Diagnos is: ICD-10- CM G47.00 Insomni a, unspeci fied IRIS,W OMER 11/30 [facility]AL[facility] [id number] Diagnos is: ICD-10- CM F63.81 Intermi ttent explosi ve disorde r LISA GRAY 11/30 [facility] [place]NAGEMENT [id number] Diagnos is: ICD-10- CM G47.00 Insomni a, unspeci fied IRIS,W OMER 12/07 [facility] W PT 60 MINUTES [id number] Diagnos is: ICD-10- CM F63.81 Intermi ttent explosi ve disorde r LISA GRAY 12/07 [facility] W PT 60 MINUTES [id number] Diagnos is: ICD-10- CM F43.12 Post-tr aumatic stress disorde r, chronic LISA GRAY 01/04 [place] [facility] En[facility] [id number] 01/09 [facility] [place] Encounter [id number] 01/13 [facility] [place] [facility] [place] LD PSYTX W PT 45 MINUTES [id number] Diagnos is: ICD-10- CM F43.12 Post-tr aumatic stress disorde r, chronic LISA GRAY YOVANNY 01/18 [facility] [place] OFFICE O/P EST LOW 20 MIN [id number] Diagnos is: ICD-10- CM E78.5 Hyperli pidemia , unspeci fied ROSEANNA VILLAVICENCIO 01/25 [facility] [place] [facility] [place] [facility] Outpatient Encounter [id number] 01/25 [facility] [place] [facility] [place] [facility] Outpatient Encounter [id number] LISA GRAY YOVANNY 01/26 [facility] [place] [place] [facility] [place] [facility] Outpatient Encounter [id number] 02/03 [facility] [place] [place] [facility] [place] LD PSYTX W PT 60 MINUTES [id number] Diagnos is: ICD-10- CM F43.12 Post-tr aumatic stress disorde r, chronic LISA GRAY YOVANNY 02/08 [facility] [place] [facility] [place] [facility] COLLJ & INTERPJ DATA EA 30 D [id number] Diagnos is: ICD-10- CM G47.30 Sleep apnea, unspeci fied ST AMANT,ESTEBAN E P 02/08 [facility] [place] [facility] [place] LD PSYTX W PT 60 MINUTES [id number] Diagnos is: ICD-10- CM F43.12 Post-tr aumatic stress disorde r, chronic LISA GRAY YOVANNY 03/08 [facility] [place] [facility] [place] [facility] Outpatient Encounter [id number] 03/15 [facility] [place] Encounter [id number] 03/20 [facility] [place] [place] PSYTX W PT 60 MINUTES [id number] [id number] Diagnos is: ICD-10- CM F43.12 Post-tr aumatic stress disorde r, chronic LISA GRAY YOVANNY 04/12 [place] [facility] Out[facility] Encounter [id number]/26 [facility] [place] Encounter [id number] 1.04/26 [facility] [place] PSYTX W PT 60 MINUTES [id number] Diagnos is: ICD-10- CM F43.12 Post-tr aumatic stress disorde r, chronic LISA GRAY YOVANNY 05/03 [place] [facility] Out[facility] Encounter [id number] 1.05/24 [facility] [place] [facility] [place] LD PSYTX W PT 60 MINUTES [id number] Diagnos is: ICD-10- CM F43.12 Post-tr aumatic stress disorde r, chronic LISA GRAY YOVANNY 06/21 [place] [facility] [place] [facility] QNHP OL DIG ASSMT&MGMT 5-10 [id number] 1. Diagnos is: ICD-10- CM G47.00 Insomni a, unspeci DAVION James 06/22 [facility] [place] Encounter [id number] 1.07/11 [facility] [place] PSYTX W PT 60 MINUTES [id number] Diagnos is: ICD-10- CM F43.12 Post-tr aumatic stress disorde r, chronic LISA GRAY YOVANNY 07/12 [place] [facility] Outpatient Encounter [id number] 07/13 [facility] [place] Out[facility] Encounter [id number] 1.07/24 [facility] [place] Out[facility] Encounter [id number] 1.07/25 [facility] [place] Out[facility] Encounter [id number] 1.07/31 [facility] [place] [facility] W PT 60 MINUTES [id number] Diagnos is: ICD-10- CM F43.12 Post-tr aumatic stress disorde r, chronic LISA GRAY YOVANNY 07/31 [place] [facility] Out[facility] Encounter [id number] 08/01 [facility] [place] Out[facility] Encounter [id number] 1.08/02 [facility] [place] Encounter [id number] 1.08/11 [facility] [place] OFFICE O/P EST MOD 30 MIN [id number] Diagnos is: ICD-10- CM E78.5 Hyperli pidemia , unspeci fied ROSEANNA VILLAVICENCIO 08/17 [place] PSYTX W PT 60 MINUTES [id number] Diagnos is: ICD-10- CM F43.12 Post-tr aumatic stress disorde r, chronic LISA GRAY YOVANNY 09/14 [place] [facility] [place] [facility] Outpatient Encounter [id number] 09/27 [facility] [place] PSYTX W PT 45 MINUTES [id number] Diagnos is: ICD-10- CM F43.12 Post-tr aumatic stress disorde r, chronic LISA GRAY YOVANNY 10/09 [place] [facility] Out[facility] Encounter [id number] 10/20 [facility] [place] [place] [facility] [place] Out[facility] Encounter [id number] 10/20 [facility] [place] [place] PSYTX W PT 30 MINUTES [id number] Diagnos is: ICD-10- CM F43.12 Post-tr aumatic stress disorde r, chronic LISA GRAY YOVANNY 11/07 [place] OFFICE O/P NEW MOD 45 MIN [id number] Diagnos is: ICD-10- CM G47.00 Insomni a, unspeci fied IRIS,W OMER 11/07 [place] PSYTX W PT 45 MINUTES [id number] Diagnos is: ICD-10- CM F43.12 Post-tr aumatic stress disorde r, chronic LISA GRAY YOVANNY 11/29 [place] OFFICE O/P EST MOD 30 MIN [id number] Diagnos is: ICD-10- CM G47.00 Insomni a, unspeci fied IRIS,W OMER 11/29 [facility] [place] Social History Combined list of available smoking, tobacco, and other social history from Department of Defense and Veterans Affairs facilities. Social History Type Response Date Comment Source Tobacco smoking status NHIS VA-TOBACCO NEVER USED 07/06/2023 [place] History of tobacco use VA-TOBACCO NEVER USED 07/28/2022 [place] History of tobacco use VA-TOBACCO NEVER USED 07/15/2021 [place] History of tobacco use VA-TOBACCO NEVER USED 07/18/2020 [facility] [place] [facility] History of tobacco use VA-TOBACCO NEVER USED 10/05/2018 [place] History of tobacco use QUIT TOBACCO USE > 7 YEARS AGO 08/13/2017 quit cigarettes after the but does smoke marijuana [facility] Plan of Care List of future care activities from Department of Veterans Affairs facilities. Additional future care activities may be listed in the Assessment and Plan section. Date/Time Care Activity Care Activity Detail Facili ty 12/20/2024 AMBULATORY - PSYCHIATRY AMBULATORY - PSYC [facility] Advance Directives List of completed, amended, or rescinded Advance Directives on record at Department of Veterans Affairs facilities. An actual copy of the Directive is not included. Date Advance Directive Provider Source 10/28/2017 ADVANCE DIRECTIVE MARI DENNEY [facility]
--- OUTSIDE RECORDS SUMMARY | 2024-12-06 08:29 | XMS_ITS | Clinical Summary ---
Author Organization [facility] Address [address] [place] [address] Care Team Providers Care Broker Name Role Phone Unavailable Primary Care Provider [...] age to complete this topic Meningococcal B Vaccine Aged Out No l onger eligible based on patient's age to complete [...]
--- OUTSIDE RECORDS SUMMARY | 2024-12-06 08:29 | XMS_ITS | Data Portability ---
Author Organization [facility], [address] Address [address] [place] [address] Assessment No assessment recorded. Plan of Treatment Reminders Order Date Submit Date Provider Last Modified By Organization Details Last Modified Time Details Appointments None recorded. Lab None recorded. Referral orthopedic surgeon referral 2022 023 [email or web address] Not available 10:34:29 Procedures None recorded. Surgeries None recorded. Imaging XR, hip + pelvis, unilateral 2022 023 [facility], [address] [place] [address], [address], 3 12:19:42 Medication Orders Tylenol Arthritis Pain 650 mg tablet,exte nded release 2022 023 [facility] [address], [address] [place] [address], [address], 3 10:47:24 Medrol (Michele) 4 mg tablets in a dose pack 2022 023 [facility] [address], [address] [place] [address], [address], 3 10:29:05 Patient TargetsNo targets recorded. Patient Instructions Encounter Date Encounter Id Patient Instructions Last Modified By Organization Details Last Modified Time 11/20/2022 [id number] hip pain: care instructions [email or web address] Not available 11/20/2022 10:32:02 Reason for Referral Orthopedic Surgeon Referral for Pain in right hip joint Referring Physician: Gabriele Cross, Urgent Care, Encounter Date: 11/20/2022 Problems Name Problem SNOMED Code Status Onset Date Resolution Date Notes Provider Name and Address Organization Details Recorded Time Hyperlipidemia 55707469 Active 2022 CHRYSTAL NATE [place], [place] - [facility] 3 09:50:55 Disorder of prostate 53448440 Active 2022 CHRYSTAL NATE ny, [place] - [facility] 3 09:51:14 Problem Notes None recorded. Medical Equipment None Reported. Allergies Allergen ID Allergen Name Allergen Category Reaction Reaction Severity Criticality Documentation Date Start Date Code Code System Note Provider Name and Address Organization Details Recorded Time 488264 tramadol medicatio n Not available Not available Not available 11/20/2022 57406 RxNorm CHRYSTAL NATE [facility], [facility] - [facility] [...] Last Updated DateTime 172.72 cm 26.6 kg/m2 43721.6 6 g 99 % 99 % 88 /min 16 /min 97.5 [degF] 134 mm[Hg] 87 mm[Hg] CHRYSTAL HAYNES - [facility] 09:49:08 Social History Question Answer Notes LastModified by [employer] ion Details LastModified Time Tobacco Smoking Status [...] SNOMED-CT Code Diagnosis ICD10 Code Diagnosis Note [id number] [address] [place] [address] 06/18/2020 19:37:15 06/18/2020 20:29:54 [id number] [place] [address] 02/17/2021 15:33:23 02/17/2021 16:18:16 [id number] [place] [address] 01/22/2021 11:41:44 01/22/2021 15:00:36 [id number] [address] [facility] [place], [place] [address] 09/12/2020 15:39:34 09/12/2020 18:34:15 [id number] [address] [facility] [place] [address] 03/17/2019 11:49:06 03/17/2019 13:02:14 [id number] [address] [facility], [place] [address] 12/11/2021 08:02:19 12/11/2021 08:48:23 [id number] [address] [facility], [place] [address] 09/18/2020 08:02:26 09/18/2020 08:28:18 [id number] [address] [facility], [place] [address] 05/06/2021 08:06:16 05/06/2021 09:33:27 [id number] [address] [facility] [place] [address] 06/18/2020 19:41:50 06/18/2020 20:29:59 [id number] Gabriele Cross DO [address] [facility], [place] [address] 11/20/2022 09:30:56 11/20/2022 10:34:29 Pain in right hip joint 8366383809 10992 M25.551 XRAYhe cannot have NSAID 2/2 plavixwill [...] [place] 131 Roberto Gibbs [id number] Roberto Bautista Sai 02/17/2021 1 [place] 131 Roberto Reyestcher [id number] Roberto Bautista Sai 05/06/2021 1 [place] 131 Roberto Reyestcher [id number] Roberto Hubbarder 11/20/2022 [facility]) Roberto Gibbs [id number] Roberto Gibbs Notes Date Note Type Note [...] Gabriele Cross, DO [address] [place], [address], [place] - [facility] 11/20/2022 10:47:27
[2024-12-06] MEDS: gadobutroL 10 ML VIAL IVPUSH (09:28)
== END 2024-12-06 08:20 | disposition home or self-care (01) ==
LOC: HO.MRI 08:19
PROVIDERS: PCP Family Medicine; Visit Provider Urology
DX: C61 Malignant neoplasm of prostate (principal)
CPT/HCPCS: 72197; A9585

== ENCOUNTER 2024-12-26 08:03 | Outpatient (AMB) | payer OTHER, SELFPAY ==
--- OUTSIDE RECORDS SUMMARY | 2024-12-26 08:09 | XMS_ITS | Encounter Summary ---
Author Name [facility] [place] Organization [place] Address [address] [place] [address] Care Team Providers Care Regeneration Operator Name Role Phone ROSEANNA VILLAVICENCIOA Primary Care [...] MEDIC AID Aug 30, 2014 MEDICAI D [id number] JARON PARKER PATIENT Selected Encounter This section includes the information on record at [place] for the Encounter. Date/Time Encounter Type Encounter Description Reason Pro vider Source Oct 20, 2024 07:15 AM Outpatient Encounter COMMUNITY CARE CONSULT IHE Encounter Template Text not used by [place] Plan of Treatment: Future Appointments (+ 6 months) and Future Tests (+/- 45 days) The Plan of Treatment section includes future care activities for the patient from all [place] treatmentfacilities. This section includes future appointments and future orders which are active, pending or scheduled. Future Appointments This section includes appointments that were scheduled to occur 6 months from the date of the Encounter, up to a maximum of 20 appointments. The data comes from all [place] treatment facilities. Appointment Date/Time Appointment Type Appointme nt Facility Name Nov 07, 2024 08:00 AM AMBULATORY - PSYCHIATRY [facility] Nov 07, 2024 08:30 AM AMBULATORY - PSYCHIATRY [facility] Nov 29, 2024 08:15 AM AMBULATORY - PSYCHIATRY [facility] Nov 29, 2024 09:00 AM AMBULATORY - PSYCHIATRY [facility] Dec 08, 2024 01:30 PM AMBULATORY - MEDICINE [place] [facility] Dec 20, 2024 08:15 AM AMBULATORY - PSYCHIATRY [facility] Dec 27, 2024 09:00 AM AMBULATORY - PSYCHIATRY [facility] Feb 14, 2025 09:00 AM AMBULATORY - MEDICINE [facility] [place] [facility] Social History: Smoking Status (Most current) and Tobacco Use (All prior to encounter date) This section includes the most current, and the historical, smoking and tobacco- related health factors from the [place] facility where the Encounter took place. Current Smoking Status This section includes the most current smoking, or tobacco-related health factor, from the [place] facility where the Encounter took place. Date/Time Current Smoking Status Comment Facil it Jul 18, 2020 08:23 AM VA-TOBACCO NEVER USED [place] [facility] Advance Directives: All historical and current Section Date Range: From patient's date of to the date document was created. This section includes ALL of a patient's completed or amended [place] Advance and Rescinded Directives. The entries below indicate that a directive exists for the patient, but an actual copy is not included with this document. The data comes from all [place] facilities. Date Advance Directives Provider Source Oct 28, 2017 ADVANCE DIRECTIVE MARI DENNEY [facility] Encounter Notes: All associated encounter notes [...] nodule in question was not visualized. Thanks /iask/ KEON VILLAVICENCIO MD Primary Care Physician Signed: 10/22/2024 08:55 Receipt Acknowledged By: 10/23/2024 09:15 /isak/ ОЛЬГА DOWLING RN REGISTERED NURSE === --- Original Document --- 10/20/24 ADMINISTRATIVE NOTE: Alert received from Maggi at [facility] Interventional Radiology: Per the radiologist, the nodule in question was not able to be reproduced or visualized for biopsy, therefore, no biopsy was done. A follow-up Ultrasound is suggested in the future. Report pending. /isak/ SACHA JACK RN, BSN REGISTERED NURSE Signed: 10/20/2024 12:07 Receipt Acknowledged By: 10/20/2024 12: /isak/ ОЛЬГА DOWLING RN REGISTERED NURSE 10/22/2024 08:52 /isak/ KEON VILLAVICENCIO MD Primary Care Physician KEON VILLAVICENCIO [place] [facility] Oct 20, 2024 12:04 PM ADMINISTRATIVE NOTE: LOCAL TITLE: ADMINISTRATIVE NOTE STANDARD TITLE: ADMINISTRATIVE NOTE DATE OF NOTE: OCT 20, 2024@12:04 ENTRY DATE: OCT 20, 2024@12:04:35 AUTHOR: SACHA JACK EXP COSIGNER: URGENCY: STATUS: COMPLETED ADMINISTRATIVE NOTE Has ADDENDA Alert received from Maggi at [facility] Interventional Radiology: Per the radiologist, the nodule in question was not able to be reproduced or visualized for biopsy, therefore, no biopsy was done. A follow-up Ultrasound is suggested in the future. Report pending. /isak/ SACHA JACK RN, BSN REGISTERED NURSE Signed: 10/20/2024 12:07 Receipt Acknowledged By: 10/20/2024 12:21 /santhosh DOWLING RN REGISTERED NURSE 10/22/2024 08:52 /isak/ KEON VILLAVICENCIO MD Primary Care Physician 10/22/2024 ADDENDUM STATUS: COMPLETED Please notify that per radiologist from [facility] Interventional Radiology that the left upper thyroid nodule in question was not visualized. Thanks /isak/ KEON VILLAVICENCIO MD Primary Care Physician Signed: 10/22/2024 08:55 Receipt Acknowledged By: 10/23/2024 09:15 /santhosh DOWLING RN REGISTERED NURSE 10/23/2024 ADDENDUM STATUS: COMPLETED Spoke with the and stated that provider's message. /isak/ ОЛЬГА DOWLING RN REGISTERED NURSE Signed: 10/23/2024 09:17 SACHA JACK CNTRL [facility]
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
--- OUTSIDE RECORDS SUMMARY | 2024-12-26 08:09 | XMS_ITS | Encounter Summary ---
Author Name [place] Address [address] [place] [id number] Care Team Providers Care Geosciences Associate Professor Name Role Phone KEON VILLAVICENCIO Primary Care [...] Herring's Name Patient's Relationship to Policy Herring [facility] MEDICAID MEDICAID MEDIC AID Aug 30, 2014 MEDICAI D [id number] 12 JARON PARKER PATIENT Selected Encounter This section includes the information on record at [place] for the Encounter. Date/Time Encounter Type Encounter Description Reason Pro vider Source Mar 15, 2024 03:12 PM Outpatient Encounter ADMIN PAT ACTIVTIES (MASNONCT) IHE Encounter Template Text not used by [place] Plan of Treatment: Future Appointments (+ 6 months) and Future Tests (+/- 45 days) The Plan of Treatment section includes future care activities for the patient from all [place] treatmentfacilities. This section includes future appointments and future orders which are active, pending or scheduled. Future Appointments This section includes appointments that were scheduled to occur 6 months from the date of the Encounter, up to a maximum of 20 appointments. The data comes from all [place] treatment facilities. Appointment Date/Time Appointment Type Appointme nt Facility Name Apr 12, 2024 10:00 AM AMBULATORY - PSYCHIATRY [facility] May 03, 2024 09:00 AM AMBULATORY - PSYCHIATRY [facility] Jun 21, 2024 02:00 PM AMBULATORY - PSYCHIATRY [facility] Jul 12, 2024 08:15 AM AMBULATORY - PSYCHIATRY [facility] Jul 31, 2024 09:00 AM AMBULATORY - PSYCHIATRY [facility] Aug 08, 2024 08:30 AM [facility] Aug 17, 2024 08:30 AM [facility] - [facility] Sep 04, 2024 09:30 AM AM[facility]UL[facility]ORY - NONE [place] [facility] Sep 14, 2024 09:00 AM AMBULATORY - PSYCHIATRY [facility] Social History: Smoking Status (Most current) and Tobacco Use (All prior to encounter date) This section includes the most current, and the historical, smoking and tobacco- related health factors from the [place] facility where the Encounter took place. Current Smoking Status This section includes the most current smoking, or tobacco-related health factor, from the [place] facility where the Encounter took place. Date/Time Current Smoking Status Comment Onelia chance Jul 18, 2020 08:23 AM [facility] Advance Directives: All historical and current Section Date Range: From patient's date of to the date document was created. This section includes ALL of a patient's completed or amended [place] Advance and Rescinded Directives. The entries below indicate that a directive exists for the patient, but an actual copy is not included with this document. The data comes from all [place] facilities. Date Advance Directives Provider Source Oct 28, 2017 ADVANCE DIRECTIVE MARI DENNEY [facility] IE Encounter Notes: All associated encounter [...] COSIGNER: URGENCY: STATUS: COMPLETED Date: Feb Division: [facility] referred by Pharmacy Call Center for medication renewal: Non-controlled/maintenan ce medication Medications requested: [id number] ROSUVASTATIN CA 20MG TAB * This medication is long . It was last released 11/01/23, but the requested to renew it. The [place] can be reached at to discuss if needed. Please review.* Defer to primary care provider To be mailed . Please review and renew if appropriate. *This note was generated by [facility]/[place] Pharmacy Customer Care. If you have any questions or need assistance, do not contact this author. Please refer all questions to your local, on-site pharmacy departments. /isak/ JOSE ALEJANDRO AYALA [facility], [place]/Pharmacy Customer Care Signed: 03/15/2024 15:12 Receipt Acknowledged By: 03/15/2024 15:21 /es/ ОЛЬГА DOWLING, ZANE REGISTERED NURSE 03/16/2024 06:14 /isak/ KEON VILLAVICENCIO MD Primary Care Physician JOSE ALEJANDRO AYALA [place] [facility]
--- OUTSIDE RECORDS SUMMARY | 2024-12-26 08:09 | XMS_ITS | Encounter Summary ---
Author Name Department of [place] Organization [place] Address [address] [place] [id number] Care Team Providers Care Welcome Desk Agent Name Role Phone KEON VILLAVICENCIO Primary Care [...] Policy Herring [facility] MEDICAID MEDICAID MEDIC AID Aug 30, 2014 MEDICAI D [id number] 12 JARON PARKER PATIENT Selected Encounter This section includes the information on record at [place] for the Encounter. Date/Time Encounter Type Encounter Description Reason Provider Source January 26, 2024 09:30 AM OFFICE O/P EST LOW 20 MIN PRIMARY CARE/MEDICINE ICD-10-CM E78.5 Hyperlipidemia, unspecified KEON VILLAVICENCIO Encounter Template Text not used by [place] Assessments - Encounter Diagnoses This section includes [...] 04, 2024 11:30 AM AMBULATORY - MEDICINE [facility] [place] [facility] Feb 09, 2024 10:00 AM AMBULATORY - PSYCHIATRY [facility] Mar 08, 2024 10:00 AM AMBULATORY PSYCHIATRY [facility] Apr 12, 2024 10:00 AM AMBULATORY PSYCHIATRY [facility] May 03, 2024 09:00 AM AMBULATORY PSYCHIATRY [facility] Jun 21, 2024 02:00 PM AMBULATORY PSYCHIATRY [facility] Jul 12, 2024 08:15 AM AMBULATORY [facility] Lab Results: +/- 30 days of the [...] Type Result - Unit Interpretation Reference Range Specimen Type Comment January 14, 2024 07:32 AM [facility] [place] [facility] THYROID T4 FREE(FT4) (WROX) SERUM Specimen Ty pe: SERUM No comment entered. Ordering Provider: KEON VILLAVICENCIO Report Released Date/Time: Jul 28, 2023 05:50 AM Reporting Lab: [facility] [place] [facility] [address] [facility] [address] Performing Lab: [place] [facility] [address] [facility] [address] THYROID T4 FREE(FT4) (WROX) 1.03 ng/dL 0 .6-1.6 January 14, 2024 07:[address] [facility] TSH SERUM Specimen Type: SERUM No comment entered. Ordering Provider: KEON VILLAVICENCIO Report Released Date/Time: Jul 28, 2023 05:50 AM Reporting Lab: [facility] [place] [place] [facility] [address] [facility] [address] Performing Lab: [place] [facility] [place] [facility] [address] [facility] [address] TSH 2.02 u[IU]/mL 0.35-5.00 January 14, 2024 07:[address] LIPID PANEL FASTING SERUM Specimen Type: SERU M No comment entered. Ordering Provider: KEON VILLAVICENCIO Report Released Date/Time: Jul 28, 2023 05:50 AM Reporting Lab: [facility] [address] [facility] [address] Performing Lab: [facility] [address] [facility] [address] CHOLESTEROL 179 mg/dL TRIGLYCERIDE 69 mg/dL 0-150 LDL calculated 86 mg/dL 0-129 CHOL/HDL 2.3 HDL CHOLESTEROL 79 mg/dL H 40-60 January 14, 2024 07:32 AM [facility] LIVER FUNCTION SERUM Specimen Type: SERUM No comment entered. Ordering Provider: KENO VILLAVICENCIO Report Released Date/Time: Jul 28, 2023 05:50 AM Reporting Lab: [facility] [address] [facility] [address] Performing Lab: [facility] [address] PROTEIN,TOTAL 7.7 g/dL 6.0-8.3 ALBUMIN 4.2 g/dL 3.5-5.0 ALKALINE PHOSPHATASE 54 U/L 40-150 AST 22 U/L 5-34 ALT 22 U/L BILIRUBIN, TOTAL 0.5 mg/dL 0.2-1.2 January 14, 2024 07:32 AM [facility] GLUCOSE FASTING SERUM Specimen Type: SERUM No comment entered. Ordering Provider: KEON VILLAVICENCIO Report Released Date/Time: Jul 28, 2023 05:50 AM Reporting Lab: [facility] [address] [facility] [address] Performing Lab: [address] [address] GLUCOSE 101 mg/dL H 65-100 January 14, 2024 07:32 AM [facility] HEMOGLOBIN A1C PANEL BLOOD Specimen Type: BLO OD Comment: Values obtained from A1C measurements can vary. For atypical A1C assays, a reported value of 7.0 could actually be between 6.72 and 7.28 if measured by a reference method. A reported value of 9.0 could actually be between 8.73 and 9.27. Ref: http://www.ngsp.org/CAPdata.asp Ordering Provider: KEON VILLAVICENCIO Report Released Date/Time: Jul 28, 2023 05:50 AM Reporting Lab: [facility] [address] [facility] [address] Performing Lab: [address] [address] HEMOGLOBIN A1C 5.5 4.0-5.6 January 14, 2024 07:32 AM [facility] GAMMA-GTP SERUM Specimen Type: SERUM No comment entered. Ordering Provider: KEON VILLAVICENCIO Report Released Date/Time: Jul 28, 2023 05:50 AM Reporting Lab: [facility] [address] [facility] [address] Performing Lab: [facility] [address] [facility] [address] GAMMA-GTP 23 U/L 10-65 Social History: Smoking [...] Onelia chance Jul 06, 2023 09:00 AM [place]-TOBACCO NEVER USED [place] Tobacco Use History This section includes a history of the smoking, or tobacco-related health factors, that were collected on or before the date of the Encounter. The data comes from the [place] facility where the Encounter took place. Date/Time Smoking Status/Tobacco Use Comment F acility Jul 28, 2022 11:30 AM VA-TOBACCO NEVER USED [place] Jul 15, 2021 09:00 AM VA-TOBACCO NEVER USED [place] Oct 05, 2018 10:22 AM VA-TOBACCO NEVER USED [place] Aug 13, 2017 12:59 PM QUIT TOBACCO USE > 7 YEARS AGO quit cigarettes after the but does smoke marijuana [place] Advance Directives: All historical and current Section [...] Oct 28, 2017 ADVANCE DIRECTIVE MARI DENNEY [facility] IELD Encounter Notes: All associated encounter notes [...] full rights to use it throughout the [place] system. 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 SERVICE - [employer] FROM Feb TO Mar 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 SERVICE INDICATED: [...] PTU for 6 mths in the late and then it corrected itself, he states he saw an Brand Advisor at [facility] at the time ---- THYROID TESTS ---- [...] Remote Allergy/ADR Data available for this patient [facility] TRAM[facility]OL Med [facility] ([facility]) INCLUDED IN THIS LIST: Alphabetical list of active outpatient prescriptions dispensed from this [place] (local) and dispensed from another [place] or [facility] facility (remote) as well as inpatient orders (local pending and active), local clinic medications, locally documented non-VA medications, and local prescriptions that have or been discontinued in the past 90 days. Non-VA Meds Last Documented On: Jul 06, 2023 NOTE The display of VA prescriptions dispensed from another [place] or DoD facility (remote) is limited to active outpatient prescription entries matched to National Drug File at the originating site and may not include some items such as investigational drugs, compounds, etc. NOT INCLUDED IN THIS LIST: Medications self-entered by the patient into personal health records (i.e. [employer]) are NOT included in this list. Non-VA medications documented outside this [place], remote inpatient orders (regardless of status) and remote clinic medications are NOT included in this list. The patient and provider must always discuss medications the patient is taking, regardless of where the medication was dispensed or obtained. ------ OUTPT ASPIRIN 81MG EC TAB (Status = Discontinued) TAKE ONE TABLET BY MOUTH ONCE DAILY TO PREVENT STROKE/HEART ATTACK Rx# [id number] Last Released: 07/19/23 Qty/Days Supply: 120/90 Rx Expiration Date: 11/05/23 Refills Remainin Indication: FOR BLOOD CLOT PREVENTION FOLLOWING PCI OUTPT FINASTERIDE 5MG TAB (Status = Active) TAKE ONE TABLET BY MOUTH ONCE DAILY Rx# [id number] Last Released: 01/17/24 Qty/Days Supply: Rx Expiration Date: 03/29/24 Refills Remainin OUTPT LORATADINE 10MG TAB (Status = ) TAKE ONE TABLET BY MOUTH ONCE DAILY FOR ALLERGY Rx# [id number] Last Released: 04/16/23 Qty/Days Supply: Rx Expiration Date: 11/05/23 Refills Remainin Indication: FOR ALLERGY OUTPT ROSUVASTATIN [place] 20MG TAB (Status = ) TAKE ONE-HALF TABLET BY MOUTH AT BEDTIME FOR CHOLESTEROL Rx# [id number] Last Released: 11/01/23 Qty/Days Supply: Rx Expiration [...]
--- OUTSIDE RECORDS SUMMARY | 2024-12-26 08:09 | XMS_ITS | Data Portability ---
Author Organization [facility] [facility], [address] Address [address] [place] [address] Assessment No assessment recorded. Plan of Treatment Reminders Order Date Submit Date Provider Last Modified By Organization Details Last Modified Time Details Appointments None recorded. Lab None recorded. Referral orthopedic surgeon referral 2022 023 [email or web address] Not available 10:34:29 Procedures None recorded. Surgeries None recorded. Imaging XR, hip + pelvis, unilateral 2022 023 [facility], [address] [place] [address], [address], 3 12:19:42 Medication Orders Tylenol Arthritis Pain 650 mg tablet,exte nded release 2022 023 [facility] [address], [address] [place] [address], [address], 3 10:47:24 Medrol (Michele) 4 mg tablets in a dose pack 2022 023 [facility] [address], [address] [place] [address], [address], 3 10:29:05 Patient TargetsNo targets recorded. Patient Instructions Encounter Date Encounter Id Patient Instructions Last Modified By Organization Details Last Modified Time 11/20/2022 [id number] hip pain: care instructions [email or web address] Not available 11/20/2022 10:32:02 Reason for Referral Orthopedic Surgeon Referral for Pain of right hip joint Referring Physician: Gabriele Cross, Urgent Care, Encounter Date: 11/20/2022 Problems Name Problem SNOMED Code Status Onset Date Resolution Date Notes Provider Name and Address Organization Details Recorded Time Hyperlipidemia 65492106 Active 2022 CHRYSTAL NATE ny, [place] - [facility] 3 09:50:55 Disorder of prostate 18109131 Active 2022 CHRYSTAL NATE ny, [place] - [facility] 3 09:51:14 Problem Notes None recorded. Medical Equipment None Reported. Allergies Allergen ID Allergen Name Allergen Category Reaction Reaction Severity Criticality Documentation Date Start Date Code Code System Note Provider Name and Address Organization Details Recorded Time 316762 tramadol medicatio n Not available Not available Not available 11/20/2022 74572 RxNorm CHRYSTAL NATE ny, [facility] - [facility] [...] Last Updated DateTime 172.72 cm 26.6 kg/m2 70671.6 6 g 99 % 99 % 88 /min 16 /min 97.5 [degF] 134 mm[Hg] 87 mm[Hg] CHRYSTAL HAYNES - [facility] 09:49:08 Social History Question Answer Notes LastModified by [email or web address] ion Details LastModified Time Tobacco Smoking Status [...] SNOMED-CT Code Diagnosis ICD10 Code Diagnosis Note [id number] [address] [place] [address] 06/18/2020 19:37:15 06/18/2020 20:29:54 [id number] [address] [place] [address] 02/17/2021 15:33:23 02/17/2021 16:18:16 [id number] [address] [place] [address] 01/22/2021 11:41:44 01/22/2021 15:00:36 [id number] [address] [facility] [place], [place] [address] 09/12/2020 15:39:34 09/12/2020 18:34:15 [id number] [address] [facility] [place] [address] 03/17/2019 11:49:06 03/17/2019 13:02:14 [id number] [address] [facility], [place] [address] 12/11/2021 08:02:19 12/11/2021 08:48:23 [id number] [address] [facility], [place] [address] 09/18/2020 08:02:26 09/18/2020 08:28:18 [id number] [address] [facility], [place] [address] 05/06/2021 08:06:16 05/06/2021 09:33:27 [id number] [address] [facility], [place] [address] 06/18/2020 19:41:50 06/18/2020 20:29:59 [id number] Gabriele Cross DO [address] [facility], [place] [address] 11/20/2022 09:30:56 11/20/2022 10:34:29 Pain of right hip joint [id number] 29954 M25.551 XRAYhe cannot have NSAID 2/2 plavixwill [...] [place] 131 Roberto Gibbs [id number] Roberto Bautista Sai 02/17/2021 1 [place] [employer] [place] 131 Roberto Reyestcher [id number] Roberto Bautista Sai 05/06/2021 1 [place] 131 Roberto Reyestcher [id number] Roberto Hubbarder 11/20/2022 [facility] Roberto Gibbs [id number] Roberto Gibbs Notes Date Note Type Note [...] Gabriele Cross, DO [address] [place], [address], [place] - [facility] 11/20/2022 10:47:27
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
--- OUTSIDE RECORDS SUMMARY | 2024-12-26 08:09 | XMS_ITS | Continuity of Care Document ---
Author Name [facility] Organization [facility] Care Team Providers Care Riveter Portable Machine Name Role Phone [facility] Unavailable Unavailable Problems Combined list of problems from Department of Defense and Veterans Affairs facilities. It does not include entries that were removed or entered in error. Problem Status Onset Date Problem Type Date of Resolution Comments Source Chronic Post-Traumatic Stress Disorder ([facility] [id number]) Active 981 Condition [facility] [place] ?? involved left legNov 2022 Entered By: KENO VILLAVICENCIO Comment: On clopidogrel x 1 year [place] Hypercholesterolemia Active Condition V [facility] [...] annually for 5 yrs due to size [place] Outside Providers Inactive Condition 07/06/2023 A pr 2021 Entered By: KEON VILLAVICENCIO Comment: [place] [facility]. P: [phone], F: [place] Diagnosis: ICD-10-CM F43.12 Post-traumatic stress disorder, chronic Active Diagnosis [place] Diagnosis: ICD-10-CM U07.1 COVID-19 Active Diagnosis [facility] D Diagnosis: ICD-10-CM G47.00 Insomnia, unspecified Active Diagnosis [place] Diagnosis: ICD-10-CM E78.5 Hyperlipidemia, unspecified Active Diagnosis [place] Diagnosis: ICD-10-CM G47.30 Sleep apnea, unspecified Active Diagnosis [facility] [place] [facility] Diagnosis: ICD-10-CM F63.81 Intermittent explosive disorder Active Diagnosis [facility] Diagnosis: ICD-10-CM Z71.89 Other specified counseling Active Diagnosis [place] Diagnosis: ICD-10-CM R94.5 Abnormal results of liver function studies Active Diagnosis [place] Medications Combined list of outpatient medications from [...] DAILY FOR ENLARGED PROSTATE ORAL ACTIVE 04/27/2025 [id number] ROSE MARIE VILLAVICENCIO SA 2023 90 [facility] [place] [facility] FINASTERIDE 5MG TAB TAKE ONE TABLET BY MOUTH ONCE DAILY ORAL DISCONT INUED BY PROVIDE R 03/29/2024 [id number] BELIA MATTHEWS MD 2022 90 [facility] IELD GOV-NIRMATR EVELYN 150MG X 2/RITONAVIR 100MG X 1 TAB,PACK,3 TAKE 2 TABLETS NIRMATRE LVIR AND 1 TABLET RITONAVI R BY MOUTH TWICE DAILY FOR COVID-19 ORAL ACTIVE 01/07/2025 [id number] MEREDITH LEAL MORTGAGE SPECIALIST [address] [facility] [place] [facility] LORATADINE 10MG TAB TAKE ONE TABLET BY MOUTH ONCE DAILY NEEDED FOR ALLERGY ORAL ACTIVE 01/07/2025 [id number] MEREDITH LEAL NP [address] [facility] [facility] [place] [facility] QUETIAPINE FUMARATE 25MG TAB TAKE ONE TABLET BY MOUTH AT BEDTIME FOR INSOMNIA AND MOOD ORAL ACTIVE 12/29/2024 [id number] 5 VIK SIMMONS 2024 30 [place] N CA 20MG TAB TAKE ONE-HALF TABLET BY MOUTH AT BEDTIME FOR CHOLESTE ROL ORAL ACTIVE 10/24/2025 [id number] ROSE MARIE VILLAVICENCIO SA 2024 45 [place] ROSUVASTAT[place] N CA 20MG TAB TAKE ONE-HALF TABLET BY MOUTH AT BEDTIME FOR CHOLESTE ROL ORAL DISCONT INUED 03/17/2025 [id number] ROSE MARIE VILLAVICENCIO SA 2023 45 [facility] IELD ROSUVASTATI N CA 20MG TAB TAKE ONE-HALF TABLET BY MOUTH AT BEDTIME FOR CHOLESTE ROL ORAL 11/05/2023 [id number] ROSE MARIE VILLAVICENCIO SA HERI 2022 45 [facility] IELD TADALAFIL 5MG TAB TAKE ONE TABLET BY MOUTH ONCE DAILY NEEDED ORAL ACTIVE ROSE MARIE VILLAVICENCIO SA LIRIANO 2022 [facility] IELD TRAZODONE HCL 100MG TAB TAKE ONE-HALF TABLET BY MOUTH AT BEDTIME NEEDED FOR INSOMNIA ASSOCIAT ED WITH DEPRESSI ON MAY TAKE ANOTHER ONE-HALF OF A TABLET IF THE FIRST HALF IS NOT EFFECTIV E ORAL DISCONT INUED BY LD Lucas 11/08/2025 [id number] VIK SIMMONS 2024 90 [facility] IE Allergies, Adverse Reactions, Alerts Combined list of allergies from Department of Defense and Veterans Affairs facilities. It does not include entries that were removed or entered in error. Substance Category Reaction Severity Reaction type Status Date Reported Comments Source TRAMADOL Propensity to adverse reactions to drug (finding) active 7 [facility] [place] [facility] Immunizations Combined list of available immunizations from the Department of Defense and Veterans Affairs facilities. Immunization Series Date Given Administered By Site Reaction Lot Number CVX Code Drug Booth Manager Status Comments Source INFLUENZA, INJECTABLE, QUADRIVALENT, PRESERVATIVE FREE 2022 MENG TRIVEDI ON M LEFT DELTO ID [id number] 150 complet ed Booster for Series, ADMINISTE RED AT [facility] IELD INFLUENZA, INJECTABLE, QUADRIVALENT, PRESERVATIVE FREE 2021 150 complet ed [facility] IELD INFLUENZA, UNSPECIFIED FORMULATION 2019 88 complet ed [place] [facility] [place] [facility] INFLUENZA, INJECTABLE, QUADRIVALENT, PRESERVATIVE FREE 2018 150 complet ed Site: Left Deltoid [facility] IELD INFLUENZA, INJECTABLE, QUADRIVALENT, PRESERVATIVE FREE 2017 150 complet ed 02, Partner: [facility]. Administe red by: [facility] Clinician (NPI=Not Provided) . Partner 4 Lot#: [id number] Mfr: [employer] Alex [facility] INFLUENZA, SEASONAL, INJECTABLE 2016 141 complet [...] January 26, 2024 06:12 AM Reporting Lab: [facility] [address] [address] Performing Lab: [facility] [address] [address] [facility] TSH THYROTROPIN [UNITS/VOLU ME] IN SERUM OR PLASMA 0.92 u[IU]/ mL 0.35 - 5.00 07/17 Specimen Type: SERUM No comment entered. Ordering Provider: KEON VILLAVICENCIO Report Released Date/Time: January 26, 2024 06:12 AM Reporting Lab: [address] [address] Performing Lab: [address] [address] [facility] HEMOGLOBI N A1C PANEL HEMOGLOBIN A1C/HEMOGLO [...] AM Reporting Lab: [facility] [place] [facility] [address] [address] Performing Lab: [facility] [place] [facility] [address] [address] [facility] [place] [facility] LIPID PANEL FASTING CHOLESTEROL [MASS/VOLUM E] IN SERUM OR PLASMA 165 mg/dL 07/17 Specimen Type: SERUM No comment entered. Ordering Provider: KEON VILLAVICENCIO Report Released Date/Time: January 26, 2024 06:12 AM Reporting Lab: [facility] [place] [facility] [address] [address] Performing Lab: [facility] [place] [facility] [address] [address] [place] [facility] [place] [facility] LIPID PANEL FASTING TRIGLYCERID E [MASS/VOLUM E] IN SERUM OR PLASMA 54 mg/dL 0 - 150 07/17 Specimen Type: SERUM No comment entered. Ordering Provider: KEON VILLAVICENCIO Report Released Date/Time: January 26, 2024 06:12 AM Reporting Lab: [facility] [place] [facility] [address] [address] Performing Lab: [facility] [place] [facility] [address] [address] [place] [facility] [place] [facility] LIPID PANEL FASTING CHOLESTEROL IN LDL [MASS/VOLUM E] IN SERUM OR PLASMA BY CALCULATION 91 mg/dL 0 - 129 07/17 Specimen Type: SERUM No comment entered. Ordering Provider: KEON VILLAVICENCIO Report Released Date/Time: January 26, 2024 06:12 AM Reporting Lab: [facility] [place] [facility] [address] [address] Performing Lab: [facility] [place] [facility] [address] [address] [place] [facility] [place] [facility] LIPID PANEL FASTING CHOLESTEROL .TOTAL/CHOL ESTEROL IN HDL [MASS RATIO] IN SERUM OR PLASMA 2.6 07/17 Specimen Type: SERUM No comment entered. Ordering Provider: KEON VILLAVICENCIO Report Released Date/Time: January 26, 2024 06:12 AM Reporting Lab: [facility] [place] [facility] [address] [address] Performing Lab: [facility] [place] [facility] [address] [address] [facility] [place] [facility] LIPID PANEL FASTING CHOLESTEROL IN HDL [MASS/VOLUM E] IN SERUM OR PLASMA 63 mg/dL 40 - 60 07/17 H Specimen Type: SERUM No comment entered. Ordering Provider: KEON VILLAVICENCIO Report Released Date/Time: January 26, 2024 06:12 AM Reporting Lab: [facility] [place] [facility] [address] [address] Performing Lab: [facility] [place] [facility] [address] [address] [place] [facility] [place] [facility] LIVER FUNCTION PROTEIN [MASS/VOLUM E] IN SERUM OR PLASMA 6.6 g/dL 6.0 - 8.3 07/17 Specimen Type: SERUM No comment entered. Ordering Provider: KEON VILLAVICENCIO Report Released Date/Time: January 26, 2024 06:12 AM Reporting Lab: [facility] [place] [facility] [address] [address] Performing Lab: [facility] [place] [facility] [address] [address] [place] [facility] [place] [facility] LIVER FUNCTION ALBUMIN [MASS/VOLUM E] IN SERUM OR PLASMA 3.7 g/dL 3.5 - 5.0 07/17 Specimen Type: SERUM No comment entered. Ordering Provider: KEON VILLAVICENCIO Report Released Date/Time: January 26, 2024 06:12 AM Reporting Lab: [facility] [place] [facility] [address] [address] Performing Lab: [facility] [place] [facility] [address] [address] [facility] [place] [facility] LIVER FUNCTION ALKALINE PHOSPHATASE [ENZYMATIC ACTIVITY/VO LUME] IN SERUM OR PLASMA 52 U/L 40 - 150 07/17 Specimen Type: SERUM No comment entered. Ordering Provider: KEON VILLAVICENCIO Report Released Date/Time: January 26, 2024 06:12 AM Reporting Lab: [facility] [place] [facility] [address] [address] Performing Lab: [facility] [place] [facility] [address] [address] [facility] [place] [facility] LIVER FUNCTION ASPARTATE AMINOTRANSF ERASE [ENZYMATIC ACTIVITY/VO LUME] IN SERUM OR PLASMA 18 U/L 5 - 34 07/17 Specimen Type: SERUM No comment entered. Ordering Provider: KEON VILLAVICENCIO Report Released Date/Time: January 26, 2024 06:12 AM Reporting Lab: [facility] [place] [facility] [address] [address] Performing Lab: [facility] [place] [facility] [address] [address] [place] [facility] [place] [facility] LIVER FUNCTION ALANINE AMINOTRANSF ERASE [ENZYMATIC ACTIVITY/VO LUME] IN SERUM OR PLASMA 17 U/L 07/17 Specimen Type: SERUM No comment entered. Ordering Provider: KEON VILLAVICENCIO Report Released Date/Time: January 26, 2024 06:12 AM Reporting Lab: [facility] [place] [facility] [address] [address] Performing Lab: [facility] [place] [facility] [address] [address] [facility] [place] [facility] LIVER FUNCTION BILIRUBIN.T OTAL [MASS/VOLUM E] IN SERUM OR PLASMA 0.3 mg/dL 0.2 - 1.2 07/17 Specimen Type: SERUM No comment entered. Ordering Provider: KEON VILLAVICENCIO Report Released Date/Time: January 26, 2024 06:12 AM Reporting Lab: [facility] [place] [facility] [address] [address] Performing Lab: [facility] [place] [address] [address] [facility] [place] [facility] BASIC METABOLIC PANEL (fasting) UREA NITROGEN [MASS/VOLUM E] IN SERUM OR PLASMA 12 mg/dL 7 - 25 07/17 Specimen Type: SERUM No comment entered. Ordering Provider: KEON VILLAVICENCIO Report Released Date/Time: January 26, 2024 06:12 AM Reporting Lab: [facility] [place] [facility] [address] [address] Performing Lab: [facility] [address] [address] [facility] BASIC METABOLIC PANEL (fasting) GLUCOSE [MASS/VOLUM E] IN SERUM OR PLASMA 103 mg/dL 65 - 100 07/17 H Specimen Type: SERUM No comment entered. Ordering Provider: KEON VILLAVICENCIO Report Released Date/Time: January 26, 2024 06:12 AM Reporting Lab: [facility] [address] Performing Lab: [place] [facility] [place] [address] [address] [facility] BASIC METABOLIC PANEL (fasting) SODIUM [MOLES/VOLU ME] IN SERUM OR PLASMA 140 mmol/L 135 - 145 07/17 Specimen Type: SERUM No comment entered. Ordering Provider: KEON VILLAVICENCIO Report Released Date/Time: January 26, 2024 06:12 AM Reporting Lab: [facility] [place] [address] [address] Performing Lab: [place] [facility] [place] [address] [address] [facility] [place] [facility] BASIC METABOLIC PANEL (fasting) POTASSIUM [MOLES/VOLU ME] IN SERUM OR PLASMA 4.5 mmol/L 3.5 - 5.0 07/17 Specimen Type: SERUM No comment entered. Ordering Provider: KEON VILLAVICENCIO Report Released Date/Time: January 26, 2024 06:12 AM Reporting Lab: [facility] [place] [address] Performing Lab: [place] [facility] [address] [facility] [place] [facility] BASIC METABOLIC PANEL (fasting) CHLORIDE [MOLES/VOLU ME] IN SERUM OR PLASMA 108 mmol/L 100 - 110 07/17 Specimen Type: SERUM No comment entered. Ordering Provider: KEON VILLAVICENCIO Report Released Date/Time: January 26, 2024 06:12 AM Reporting Lab: [facility] [place] [address] [address] Performing Lab: [place] [facility] [address] [address] [facility] BASIC METABOLIC PANEL (fasting) CARBON DIOXIDE, TOTAL [MOLES/VOLU ME] IN SERUM OR PLASMA 25 meq/L 20 - 30 07/17 Specimen Type: SERUM No comment entered. Ordering Provider: KEON VILLAVICENCIO Report Released Date/Time: January 26, 2024 06:12 AM Reporting Lab: [facility] [place] [address] [address] Performing Lab: [place] [facility] [place] [address] [facility] BASIC METABOLIC PANEL (fasting) CREATININE [MASS/VOLUM E] IN SERUM OR PLASMA 0.98 mg/dL 0.50 - 1.40 07/17 Specimen Type: SERUM No comment entered. Ordering Provider: KEON VILLAVICENCIO Report Released Date/Time: January 26, 2024 06:12 AM Reporting Lab: [facility] [place] [address] [address] Performing Lab: [place] [facility] [place] [address] [facility] [place] [facility] BASIC METABOLIC PANEL (fasting) GLOMERULAR FILTRATION RATE/1.73 SQ M.PREDICTED [VOLUME RATE/AREA] IN SERUM, PLASMA OR BLOOD BY CREATININE- BASED FORMULA (CKD-EPI 2020) 88 mL/min 60 07/17 Specimen Type: SERUM No comment entered. Ordering Provider: KEON VILLAVICENCIO Report Released Date/Time: January 26, 2024 06:12 AM Reporting Lab: [facility] [place] [facility] [address] [address] Performing Lab: [facility] [place] [facility] [address] [address] [facility] [place] [facility] PSA PROSTATE SPECIFIC AG [MASS/VOLUM E] IN SERUM OR PLASMA 3.95 ng/mL 0.00 - 4.00 07/17 Specimen Type: SERUM No comment entered. Ordering Provider: KEON VILLAVICENCIO Report Released Date/Time: January 26, 2024 06:12 AM Reporting Lab: [facility] [place] [facility] [address] [address] Performing Lab: [facility] [place] [facility] [address] [address] [facility] [place] [facility] CBC AND DIFF (AUTO) LEUKOCYTES [#/VOLUME] IN BLOOD BY AUTOMATED COUNT 7.58 10*3/u L 4.50 - 11.00 07/17 Specimen Type: BLOOD No comment entered. Ordering Provider: KEON VILLAVICENCIO Report Released Date/Time: January 26, 2024 06:12 AM Reporting Lab: [facility] [place] [facility] [address] [address] Performing Lab: [facility] [place] [facility] [address] [address] [facility] [place] [facility] CBC AND DIFF (AUTO) ERYTHROCYTE S [#/VOLUME] IN BLOOD BY AUTOMATED COUNT 4.62 10*6/u L 4.23 - 5.66 07/17 Specimen Type: BLOOD No comment entered. Ordering Provider: KEON VILLAVICENCIO Report Released Date/Time: January 26, 2024 06:12 AM Reporting Lab: [facility] [place] [facility] [address] [address] Performing Lab: [facility] [place] [facility] [address] [address] [facility] [place] [facility] CBC AND DIFF (AUTO) HEMOGLOBIN [MASS/VOLUM E] IN BLOOD 13.5 g/dL 12.8 - 17 07/17 Specimen Type: BLOOD No comment entered. Ordering Provider: KEON VILLAVICENCIO Report Released Date/Time: January 26, 2024 06:12 AM Reporting Lab: [facility] [place] [facility] [address] [address] Performing Lab: [facility] [place] [facility] [address] [address] [facility] [place] [facility] CBC AND DIFF (AUTO) HEMATOCRIT [VOLUME FRACTION] OF BLOOD BY AUTOMATED COUNT 41.5 39.2 - 50.4 07/17 Specimen Type: BLOOD No comment entered. Ordering Provider: KEON VILLAVICENCIO Report Released Date/Time: January 26, 2024 06:12 AM Reporting Lab: [facility] [place] [facility] [address] [facility] [address] Performing Lab: [facility] [place] [facility] [address] [address] [facility] [place] [facility] CBC AND DIFF (AUTO) MCV [ENTITIC VOLUME] BY AUTOMATED COUNT 89.8 fL 82 - 99 07/17 Specimen Type: BLOOD No comment entered. Ordering Provider: KEON VILLAVICENCIO Report Released Date/Time: January 26, 2024 06:12 AM Reporting Lab: [facility] [place] [facility] [address] [facility] [address] Performing Lab: [facility] [place] [facility] [address] [address] [facility] [place] [facility] CBC AND DIFF (AUTO) MCHC [MASS/VOLUM E] BY AUTOMATED COUNT 32.5 g/dL 30.8 - 35.1 07/17 Specimen Type: BLOOD No comment entered. Ordering Provider: KEON VILLAVICENCIO Report Released Date/Time: January 26, 2024 06:12 AM Reporting Lab: [facility] [place] [facility] [address] [facility] [address] Performing Lab: [facility] [place] [facility] [address] [address] [facility] [place] [facility] CBC AND DIFF (AUTO) PLATELETS [#/VOLUME] IN BLOOD BY AUTOMATED COUNT 296 10*3/u L 140 - 360 07/17 Specimen Type: BLOOD No comment entered. Ordering Provider: KEON VILLAVICENCIO Report Released Date/Time: January 26, 2024 06:12 AM Reporting Lab: [facility] [place] [address] [address] Performing Lab: [facility] [place] [address] [address] [facility] [place] [facility] CBC AND DIFF (AUTO) ERYTHROCYTE DISTRIBUTIO N WIDTH [RATIO] BY AUTOMATED COUNT 13.6 12.0 - 16.0 07/17 Specimen Type: BLOOD No comment entered. Ordering Provider: KEON VILLAVICENCIO Report Released Date/Time: January 26, 2024 06:12 AM Reporting Lab: [facility] [place] [address] [address] Performing Lab: [facility] [place] [address] [address] [facility] [place] [facility] CBC AND DIFF (AUTO) MONOCYTES [#/VOLUME] IN BLOOD BY AUTOMATED COUNT 0.52 10*3/u L 0.30 - 1.10 07/17 Specimen Type: BLOOD No comment entered. Ordering Provider: KEON VILLAVICENCIO Report Released Date/Time: January 26, 2024 06:12 AM Reporting Lab: [facility] [place] [address] [address] Performing Lab: [facility] [place] [address] [address] [facility] [place] [facility] CBC AND DIFF (AUTO) MCH [ENTITIC MASS] BY AUTOMATED COUNT 29.2 pg 26.2 - 32.6 07/17 Specimen Type: BLOOD No comment entered. Ordering Provider: KEON VILLAVICENCIO Report Released Date/Time: January 26, 2024 06:12 AM Reporting Lab: [facility] [place] [address] [address] Performing Lab: [facility] [place] [facility] [address] [facility] [address] [facility] [place] [facility] CBC AND DIFF (AUTO) NEUTROPHILS /100 LEUKOCYTES IN BLOOD BY AUTOMATED COUNT 41.5 43.7 - 75.8 07/17 L Specimen Type: BLOOD No comment entered. Ordering Provider: KEON VILLAVICENCIO Report Released Date/Time: January 26, 2024 06:12 AM Reporting Lab: [facility] [place] [facility] [address] [facility] [facility] [address] Performing Lab: [facility] [place] [facility] [address] [address] [facility] [place] [facility] CBC AND DIFF (AUTO) LYMPHOCYTES /100 LEUKOCYTES IN BLOOD BY AUTOMATED COUNT 48.8 14.0 - 42.3 07/17 H Specimen Type: BLOOD No comment entered. Ordering Provider: KEON VILLAVICENCIO Report Released Date/Time: January 26, 2024 06:12 AM Reporting Lab: [facility] [place] [facility] [address] [facility] [facility] [address] Performing Lab: [facility] [place] [facility] [address] [address] [facility] [place] [facility] CBC AND DIFF (AUTO) MONOCYTES/1 00 LEUKOCYTES IN BLOOD BY AUTOMATED COUNT 6.9 5.1 - 13.7 07/17 Specimen Type: BLOOD No comment entered. Ordering Provider: KEON VILLAVICENCIO Report Released Date/Time: January 26, 2024 06:12 AM Reporting Lab: [facility] [place] [facility] [address] [facility] [facility] [address] Performing Lab: [facility] [place] [facility] [address] [facility] [address] [facility] [place] [facility] CBC AND DIFF (AUTO) EOSINOPHILS /100 LEUKOCYTES IN BLOOD BY AUTOMATED COUNT 2.1 0.4 - 6.8 07/17 Specimen Type: BLOOD No comment entered. Ordering Provider: KEON VILLAVICENCIO Report Released Date/Time: January 26, 2024 06:12 AM Reporting Lab: [facility] [place] [facility] [address] [facility] [address] Performing Lab: [facility] [place] [facility] [address] [facility] [facility] [address] [facility] [place] [facility] CBC AND DIFF (AUTO) BASOPHILS/1 00 LEUKOCYTES IN BLOOD BY AUTOMATED COUNT 0.4 0.1 - 2.0 07/17 Specimen Type: BLOOD No comment entered. Ordering Provider: KEON VILLAVICENCIO Report Released Date/Time: January 26, 2024 06:12 AM Reporting Lab: [facility] [place] [facility] [address] [facility] [address] Performing Lab: [facility] [place] [facility] [address] [facility] [address] [facility] [place] [facility] CBC AND DIFF (AUTO) NEUTROPHILS [#/VOLUME] IN BLOOD BY AUTOMATED COUNT 3.15 10*3/u L 2.20 - 7.60 07/17 Specimen Type: BLOOD No comment entered. Ordering Provider: KEON VILLAVICENCIO Report Released Date/Time: January 26, 2024 06:12 AM Reporting Lab: [facility] [place] [facility] [address] [facility] [address] Performing Lab: [facility] [place] [facility] [address] [facility] [facility] [address] [facility] CBC AND DIFF (AUTO) LYMPHOCYTES [#/VOLUME] IN BLOOD BY AUTOMATED COUNT 3.70 10*3/u L 1.00 - 3.20 07/17 H Specimen Type: BLOOD No comment entered. Ordering Provider: KEON VILLAVICENCIO Report Released Date/Time: January 26, 2024 06:12 AM Reporting Lab: [facility] [place] [facility] [address] [facility] [address] Performing Lab: [facility] [place] [address] [address] [facility] CBC AND DIFF (AUTO) EOSINOPHILS [#/VOLUME] IN BLOOD BY AUTOMATED COUNT 0.16 10*3/u L 0.03 - 0.44 07/17 Specimen Type: BLOOD No comment entered. Ordering Provider: KEON VILLAVICENCIO Report Released Date/Time: January 26, 2024 06:12 AM Reporting Lab: [facility] [place] [facility] [address] [facility] [address] Performing Lab: [facility] [place] [facility] [address] [facility] [facility] [address] [facility] CBC AND DIFF (AUTO) BASOPHILS [#/VOLUME] IN BLOOD BY AUTOMATED COUNT 0.03 10*3/u L 0.01 - 0.13 07/17 Specimen Type: BLOOD No comment entered. Ordering Provider: KEON VILLAVICENCIO Report Released Date/Time: January 26, 2024 06:12 AM Reporting Lab: [facility] [place] [facility] [address] [facility] [address] Performing Lab: [facility] [place] [address] [address] [facility] CBC AND DIFF (AUTO) IMMATURE GRANULOCYTE S/100 LEUKOCYTES IN BLOOD BY AUTOMATED COUNT 0.3 0.0 - 0.7 07/17 Specimen Type: BLOOD No comment entered. Ordering Provider: KEON VILLAVICENCIO Report Released Date/Time: January 26, 2024 06:12 AM Reporting Lab: [facility] [address] [facility] [address] Performing Lab: [facility] [address] [address] [facility] CBC AND DIFF (AUTO) IMMATURE GRANULOCYTE S [#/VOLUME] IN BLOOD 0.02 10*3/u L 0.00 - 0.06 07/17 Specimen Type: BLOOD No comment entered. Ordering Provider: KEON VILLAVICENCIO Report Released Date/Time: January 26, 2024 06:12 AM Reporting Lab: [facility] [address] [facility] [address] Performing Lab: [facility] [address] [address] [facility] CBC AND DIFF (AUTO) NRBC % 0.0 0.0 - 0.0 07/17 Specimen Type: BLOOD No comment entered. Ordering Provider: KEON VILLAVICENCIO Report Released Date/Time: January 26, 2024 06:12 AM Reporting Lab: [facility] [address] [facility] [address] Performing Lab: [facility] [place] [facility] [address] [facility] [address] [facility] CBC AND DIFF (AUTO) NRBC, ABS 0.00 10*3/u L 0.00 - 0.00 07/17 Specimen Type: BLOOD No comment entered. Ordering Provider: KEON VILLAVICENCIO Report Released Date/Time: January 26, 2024 06:12 AM Reporting Lab: [facility] [place] [facility] [address] [facility] [address] Performing Lab: [facility] [place] [facility] [address] [facility] [address] [facility] THYROID T4 FREE(FT4) (WROX) THYROXINE (T4) FREE [MASS/VOLUM E] IN SERUM OR PLASMA 1.03 ng/dL 0.6 - 1.6 01/13 Specimen Type: SERUM No comment entered. Ordering Provider: KEON VILLAVICENCIO Report Released Date/Time: Jul 28, 2023 05:50 AM Reporting Lab: [facility] [facility] [address] [facility] [address] Performing Lab: [facility] [facility] [address] [facility] [address] [facility] TSH THYROTROPIN [UNITS/VOLU ME] IN SERUM OR PLASMA 2.02 u[IU]/ mL 0.35 - 5.00 01/13 Specimen Type: SERUM No comment entered. Ordering Provider: KEON VILLAVICENCIO Report Released Date/Time: Jul 28, 2023 05:50 AM Reporting Lab: [facility] [facility] [address] [facility] [address] Performing Lab: [facility] [place] [address] [place] [address] [facility] Vital Signs Combined list of inpatient and [...] included; 2) Encounters from the Department of [facility] facilities going backup to 280 months. Location Location Details Encounter Type Encounter Number Reason For Visit Attending Provider ADM Date DC Date Status Disposition Source [place] O/P EST MOD 30-39 MIN [id number] Diagnos is: ICD-10- CM E78.5 Hyperli pidemia , unspeci fied ROSEANNA VILLAVICENCIO 07/06 [place] O/P EST MOD 30-39 MIN [id number] Diagnos is: ICD-10- CM R94.5 Abnorma l results of liver functio n studies ROSEANNA VILLAVICENCIO 07/28 [place] [facility] Out[facility] Encounter [id number] 08/09 [facility] En[facility] [id number] 08/17 [facility] Encounter [id number] 09/16 [facility] Encounter [id number] 09/21 [facility] Encounter [id number] 10/05 [facility] Encounter [id number] 11/03 [facility] [place]/OP EST DECEMBER X REQ PHY/QHP [id number] Diagnos is: ICD-10- CM Z71.89 Other specifi ed residential counselor MADELINE Hutson 11/23 [place] [facility] Encounter [id number] [facility] Encounter [id number] 11/24 [facility] [place] [facility] [id number] Diagnos is: ICD-10- CM G47.00 Insomni a, unspeci fied RIIS,W OMER 11/30 [place] [facility]CH DIAGNOSTIC EVALUATION [id number] Diagnos is: ICD-10- CM F63.81 Intermi ttent explosi ve disorde r LISA GRAY 11/30 [place] [id number] Diagnos is: ICD-10- CM G47.00 Insomni a, unspeci fied IRIS,W OMER 12/07 [place] PSY[place] W PT 60 MINUTES [id number] Diagnos is: ICD-10- CM F63.81 Intermi ttent explosi ve disorde r LISA GRAY 12/07 [place] [facility]Y[place] W PT 60 MINUTES [id number] Diagnos is: ICD-10- CM F43.12 Post-tr aumatic stress disorde r, chronic LISA GRAY 01/04 [place] [facility] Out[facility] Encounter [id number] 01/09 [facility] Encounter [id number] 01/13 [facility] [place] [facility]Y[place] W PT 45 MINUTES [id number] Diagnos is: ICD-10- CM F43.12 Post-tr aumatic stress disorde r, chronic LISA GRAY Y[facility]ANNY [facility] EST LOW 20 MIN [id number] Diagnos is: ICD-10- CM E78.5 Hyperli pidemia , unspeci fied ROSEANNA VILLAVICENCIO 01/25 [facility] [place] [facility] Encounter [id number] 01/25 [facility] Encounter [id number] LISA GRAY YOVANNY 01/26 [facility] Out[facility] Encounter [id number] 02/03 [facility] 60 MINUTES [id number] Diagnos is: ICD-10- CM F43.12 Post-tr aumatic stress disorde r, chronic LISA GRAY YOVANNY 02/08 [facility] [place] [facility] COLLJ & INTERPJ DATA EA 30 D [id number] Diagnos is: ICD-10- CM G47.30 Sleep apnea, unspeci fied ST AMESTEBAN JOAQUIN E P 02/08 [facility] [place] [facility]Y[place] W PT 60 MINUTES [id number] Diagnos is: ICD-10- CM F43.12 Post-tr aumatic stress disorde r, chronic LISA GRAY YOVANNY 03/08 [place] [facility] Out[facility] Encounter [id number] 03/15 [facility] Encounter [id number] [facility] [place] [facility]Y[place] W PT 60 MINUTES [id number] Diagnos is: ICD-10- CM F43.12 Post-tr aumatic stress disorde r, chronic LISA GRAY YOVANNY 04/12 [place] [facility] Out[facility] Encounter [id number] [facility] Encounter [id number] 04/26 [facility] [place] [facility]Y[place] W PT 60 MINUTES [id number] Diagnos is: ICD-10- CM F43.12 Post-tr aumatic stress disorde r, chronic LISA GRAY YOVANNY 05/03 [place] [facility] Out[facility] Encounter [id number] 1.05/24 [facility] [place] [facility]Y[place] W PT 60 MINUTES [id number] Diagnos is: ICD-10- CM F43.12 Post-tr aumatic stress disorde r, chronic LISA GRAY YOVANNY 06/21 [place] [facility] QNHP OL DIG ASSMT&MGMT 5-10 [id number]. Diagnos is: ICD-10- CM G47.00 Insomni a, unspeci DAVION James 06/22 [facility] Out[facility] Encounter [id number] 1.07/11 [facility] [place] PSY[place] W PT 60 MINUTES [id number] Diagnos is: ICD-10- CM F43.12 Post-tr aumatic stress disorde r, chronic GRAYLISA YOVANNY 07/12 [place] [facility] Out[facility] Encounter [id number] 1.07/13 [facility] Out[facility] Encounter [id number] 07/24 [facility] Encounter [id number] 1.07/25 [facility] Out[facility] Encounter [id number] 07/31 [facility] W PT 60 MINUTES [id number] Diagnos is: ICD-10- CM F43.12 Post-tr aumatic stress disorde r, chronic LISA GRAY YOVANNY 07/31 [place] [facility] Out[facility] Encounter [id number] 08/01 [facility] Encounter [id number] 08/02 [facility] Encounter [id number] 1.08/11 [facility] [place] O/P EST MOD 30 MIN [id number] Diagnos is: ICD-10- CM E78.5 Hyperli pidemia , unspeci fied SAUD,LIS A HERI 08/17 [place] W PT 60 MINUTES [id number] Diagnos is: ICD-10- CM F43.12 Post-tr aumatic stress disorde r, chronic LISA GRAY YOVANNY 09/14 [place] [facility] Outpatient Encounter [id number] 09/27 [facility] [place] W PT 45 MINUTES [id number] Diagnos is: ICD-10- CM F43.12 Post-tr aumatic stress disorde r, chronic ISAACLISA YOVANNY 10/09 [place] [facility] Outpatient Encounter [id number] [facility] Outpatient Encounter [id number] 10/20 [facility] [place] [facility]Y[place] W PT 30 MINUTES [id number] Diagnos is: ICD-10- CM F43.12 Post-tr aumatic stress disorde r, chronic LISA GRAY YOVANNY 11/07 [place] O/P NEW MOD 45 MIN [id number] Diagnos is: ICD-10- CM G47.00 Insomni a, unspeci fied IRIS,W OMER 11/07 [place] PSYTX W PT 45 MINUTES [id number] Diagnos is: ICD-10- CM F43.12 Post-tr aumatic stress disorde r, chronic LISA GRAY 11[facility]29 [facility] MOD 30 MIN [id number] Diagnos is: ICD-10- CM G47.00 Insomni a, unspeci fied IRIS,W OMER 11/29 [facility] Outpatient Encounter [id number] 1.11/30 [facility] Encounter [id number] 1.12/06 [facility] Out[facility] Encounter [id number] 1.12/08 [facility] SYNCH AUDIO-ONLY EST LOW 20 [id number] Diagnos is: ICD-10- CM U07.1 COVID-1 9 MEREDITH LEAL MORTGAGE SPECIALIST 12/08 [facility] [place] [place] NQ[facility] OL DIG ASSMT&MGMT 5-10 [id number] 1BY. 93 Diagnos is: ICD-10- CM U07.1 COVID-1 9 MARIELA العراقي IE 12/08 [facility] PSYTX W PT 45 MINUTES [id number] Diagnos is: ICD-10- CM F43.12 Post-tr aumatic stress disorde r, chronic LISA GRAY 12/20 [facility] Social History Combined list of available smoking, tobacco, and other social history from Department of Defense and Veterans Affairs facilities. Social History Type Response Date Comment Source Tobacco smoking status [facility] NEVER USED 07/06/2023 [place] History of tobacco use [facility] 07/28/2022 [place] History of tobacco use [facility] NEVER USED 07/15/2021 [place] History of tobacco use [facility] NEVER [facility] 07[facility]18[facility]2020 [facility] [place] [facility] History of tobacco use [facility] NEVER USED 10/05/2018 [place] History of tobacco use QUIT TOBACCO USE > 7 YEARS AGO 08/13/2017 quit cigarettes after the but does smoke marijuana [place] Plan of Care List of future care activities from Department of Veterans Affairs facilities. Additional future care activities may be listed in the Assessment and Plan section. Date/Time Care Activity Care Activity Detail Facili ty 12/27/2024 AMBULATORY - PSYCHIATRY AMBULATORY - [facility] Advance Directives List of completed, amended, or rescinded Advance Directives on record at Department of Veterans Affairs facilities. An actual copy of the Directive is not included. Date Advance Directive Provider Source 10/28/2017 ADVANCE DIRECTIVE MARI DENNEY
--- OUTSIDE RECORDS SUMMARY | 2024-12-26 08:09 | XMS_ITS ---
Author Name [facility] [place] [facility] [place] [facility] [place] [facility] [place] Address [address] [place] [address] Care Team Providers Care Business Office Technology Instructor Name Role Phone KEON VILLAVICENCIO Primary Care [...] Herring's Name Patient's Relationship to Policy Herring [facility] MEDICAID MEDICAID MEDIC AID Aug 30, 2014 MEDICAI D [id number] JARON PARKER PATIENT Selected Encounter This section includes the information on record at [place] for the Encounter. Date/Time Encounter Type Encounter Description Reason Pro vider Source Jul 24, 2024 06:57 AM Outpatient Encounter ADMIN PAT ACTIVTIES (MASNONCT) IHE Encounter Template Text not used by [place] Plan of Treatment: Future Appointments (+ 6 months) and Future Tests (+/- 45 days) The Plan of Treatment section includes future care activities for the patient from all [place] treatmentfacilities. This section includes future appointments and future orders which are active, pending or scheduled. Future Appointments This section includes appointments that were scheduled to occur 6 months from the date of the Encounter, up to a maximum of 20 appointments. The data comes from all [place] treatment facilities. Appointment Date/Time Appointment Type Appointme nt Facility Name Jul 31, 2024 09:00 AM AMBULATORY - PSYCHIATRY [facility] Aug 08, 2024 08:30 AM [place] [facility] [place] [facility] Aug 17, 2024 08:30 AM [place] [facility] [place] [facility] Sep 04, 2024 09:30 AM AMBULATORY - NONE [facility] [place] [facility] Sep 14, 2024 09:00 AM AMBULATORY - PSYCHIATRY [facility] Oct 09, 2024 09:00 AM AMBULATORY - PSYCHIATRY [facility] Oct 20, 2024 07:15 AM AMBULATORY - MEDICINE [facility] [place] [place] [facility] Nov 07, 2024 08:00 AM AMBULATORY - PSYCHIATRY [facility] Nov 07, 2024 08:30 AM AMBULATORY - PSYCHIATRY [facility] Nov 29, 2024 08:15 AM AMBULATORY - PSYCHIATRY [facility] Nov 29, 2024 09:00 AM AMBULATORY - PSYCHIATRY [facility] Dec 08, 2024 01:30 PM AMBULATORY - MEDICINE [facility] [place] [facility] Dec 20, 2024 08:15 AM AMBULATORY - PSYCHIATRY [facility] Dec 27, 2024 09:00 AM AMBULATORY - PSYCHIATRY [facility] Lab Results: +/- 30 days of the encounter This section includes the Chemistry and Hematology Lab Results on record with [place] for the patient. Radiology Reports and Pathology Reports are provided separately, in subsequent sections. Lab Results This section contains the Chemistry/Hematology Results that were resulted 30 days before or 30 daysafter the date of the Encounter. Date/Time Source Result Type Result - Unit Interpretation Reference Range Specimen Type Comment Jul 17, 2024 07:45 [facility] [place] [facility] THYROID T4 FREE(FT4) (WROX) SERUM Specimen Ty pe: SERUM No comment entered. Ordering Provider: KEON VILLAVICENCIO Report Released Date/Time: January 26, 2024 06:12 AM Reporting Lab: [place] [facility] [place] [facility] [address] [facility] [address] Performing Lab: [place] [facility] [place] [facility] [address] [facility] [address] THYROID T4 FREE(FT4) (WROX) 1.01 ng/dL 0 .6-1.6 Jul 17, 2024 07:45 AM [facility] TSH SERUM Specimen Type: SERUM No comment entered. Ordering Provider: KEON VILLAVICENCIO Report Released Date/Time: January 26, 2024 06:12 AM Reporting Lab: [address] [address] Performing Lab: [address] [address] TSH 0.92 u[IU]/mL 0.35-5.00 Jul 17, 2024 07:45 AM [facility] HEMOGLOBIN A1C PANEL BLOOD Specimen Type: BLO [...] January 26, 2024 06:12 AM Reporting Lab: [address] [address] Performing Lab: [address] [address] HEMOGLOBIN A1C 5.7 H 4.0-5.6 Jul 17, 2024 07:45 AM [facility] LIPID PANEL FASTING SERUM Specimen Type: SERU M No comment entered. Ordering Provider: KEON VILLAVICENCIO Report Released Date/Time: January 26, 2024 06:12 AM Reporting Lab: [address] [address] Performing Lab: [address] [address] CHOLESTEROL 165 mg/dL TRIGLYCERIDE 54 mg/dL 0-150 LDL calculated 91 mg/dL 0-129 CHOL/HDL 2.6 HDL CHOLESTEROL 63 mg/dL H 40-60 Jul 17, 2024 07:45 AM [facility] LIVER FUNCTION SERUM Specimen Type: SERUM No comment entered. Ordering Provider: KEON VILLAVICENCIO Report Released Date/Time: January 26, 2024 06:12 AM Reporting Lab: [address] [address] Performing Lab: [facility] [address] [address] PROTEIN,TOTAL 6.6 g/dL 6.0-8.3 ALBUMIN 3.7 g/dL 3.5-5.0 ALKALINE PHOSPHATASE 52 U/L 40-150 AST 18 U/L 5-34 ALT 17 U/L BILIRUBIN, TOTAL 0.3 mg/dL 0.2-1.2 Jul 17, 2024 07:45 AM [facility] BASIC METABOLIC PANEL (fasting) SERUM Specime n Type: SERUM No comment entered. Ordering Provider: KEON VILLAVICENCIO Report Released Date/Time: January 26, 2024 06:12 AM Reporting Lab: [facility] [address] [address] Performing Lab: [address] [address] UREA NITROGEN 12 mg/dL 7-25 GLUCOSE 103 mg/dL H 65-100 SODIUM 140 mmol/L 135-145 POTASSIUM 4.5 mmol/L 3.5-5.0 CHLORIDE 108 mmol/L 100-110 CO2 25 meq/L 20-30 CREATININE, Serum 0.98 mg/dL 0.50-1.40 eGFR(CKD-EPI 2020) 88 mL/min >60 Jul 17, 2024 07:45 AM [facility] PSA SERUM Specimen Type: SERUM No comment entered. Ordering Provider: KEON VILLAVICENCIO Report Released Date/Time: January 26, 2024 06:12 AM Reporting Lab: [facility] [address] [address] Performing Lab: [address] [address] PSA 3.95 ng/mL 0.00-4.00 Jul 17, 2024 07:45 AM [facility] CBC AND DIFF (AUTO) BLOOD Specimen Type: BLOO D No comment entered. Ordering Provider: KEON VILLAVICENCIO Report Released Date/Time: January 26, 2024 06:12 AM Reporting Lab: [facility] [address] [facility] [address] Performing Lab: [facility] [address] [facility] [address] WBC 7.58 10*3/uL 4.50-11.00 RBC 4.62 10*6/uL [...] 0.3 0.0-0.7 IMMATURE GRAN, ABS 0.02 10*3/uL 0.00-0.0 6 NRBC % 0.0 0.0-0.0 NRBC, ABS 0.00 10*3/uL 0.00-0.00 Social History: Smoking Status (Most current) and Tobacco Use (All prior to encounter date) This section includes the most current, and the historical, smoking and tobacco- related health factors from the [place] facility where the Encounter took place. Current Smoking Status This section includes the most current smoking, or tobacco-related health factor, from the [place] facility where the Encounter took place. Date/Time Current Smoking Status Comment Onelia chance Jul 18, 2020 08:23 AM [facility] NEVER USED [facility] Advance Directives: All historical and current Section Date Range: From patient's date of to the date document was created. This section includes ALL of a patient's completed or amended [place] Advance and Rescinded Directives. The entries below indicate that a directive exists for the patient, but an actual copy is not included with this document. The data comes from all [place] facilities. Date Advance Directives Provider Source Oct 28, [address] [facility] IELD Encounter Notes: All associated encounter notes [...] JESSICA POLANCO Signed: 07/24/2024 06:58 JESSICA POLANCO [place] [facility]
--- OUTSIDE RECORDS SUMMARY | 2024-12-26 08:10 | XMS_ITS | Clinical Summary ---
Author Organization [facility] Address [address] [place] [address] Care Team Providers Care Quarry Supervisor Dimension Stone Name Role Phone Unavailable Primary Care Provider [...]
--- OUTSIDE RECORDS SUMMARY | 2024-12-26 08:10 | XMS_ITS | Encounter Summary ---
Author Name [facility] Organization [facility] Address [address] [place] [id number] Care Team Providers Care Nurse Orthopaedic Name Role Phone KEON VILLAVICENCIO Primary Care [...] Name Patient's Relationship to Policy Herring [facility] MEDICAID MEDICAID MEDIC AID Aug 30, 2014 MEDICAI D [id number] JARON PARKER PATIENT Selected Encounter This section includes the information on record at DC for the Encounter. Date/Time Encounter Type Encounter Description Reason Provider Source Aug 17, 2024 08:30 AM OFFICE O/P EST MOD 30 MIN PRIMARY CARE/MEDICINE ICD-10-CM E78.5 Hyperlipidemia, unspecified KEON VILLAVICENCIO Encounter Template Text not used by DC Assessments - Encounter Diagnoses This section includes [...] care activities for the patient from all DC treatmentfacilities. This section includes future appointments and future orders which are active, pending or scheduled. Future Appointments This section includes appointments that were scheduled to occur 6 months from the date of the Encounter, up to a maximum of 20 appointments. The data comes from all DC treatment facilities. Appointment Date/Time Appointment Type Appointme nt Facility Name Sep 04, 2024 09:30 AM [facility] Sep 14, 2024 09:00 AM AMBULATORY - PSYCHIATRY [facility] Oct 09, 2024 09:00 AM AMBULATORY - PSYCHIATRY [facility] Oct 20, 2024 07:15 AM AMBULATORY [facility] MEDICINE [facility] Nov 07, 2024 08:00 AM AMBULATORY - PSYCHIATRY [facility] Nov 07, 2024 08:30 AM AMBULATORY - PSYCHIATRY [facility] Nov 29, 2024 08:15 AM AMBULATORY - PSYCHIATRY [facility] Nov 29, 2024 09:00 AM AMBULATORY - PSYCHIATRY [facility] Dec 08, 2024 01:30 PM AMBULATORY - MEDICINE [place] [facility] [place] [facility] Dec 20, 2024 08:15 AM AMBULATORY - PSYCHIATRY [facility] Dec 27, 2024 09:00 AM AMBULATORY - PSYCHIATRY [facility] Feb 14, 2025 09:00 AM AMBULATORY - MEDICINE [facility] Social History: Smoking Status (Most current) and Tobacco Use (All prior to encounter date) This section includes the most current, and the historical, smoking and tobacco- related health factors from the DC facility where the Encounter took place. Current Smoking Status This section includes the most current smoking, or tobacco-related health factor, from the DC facility where the Encounter took place. Date/Time Current Smoking Status Comment Onelia chance Jul 06, 2023 09:00 AM VA-TOBACCO NEVER USED [place] Tobacco Use History This section includes a history of the smoking, or tobacco-related health factors, that were collected on or before the date of the Encounter. The data comes from the DC facility where the Encounter took place. Date/Time Smoking Status/Tobacco Use Comment F acchante Jul 28, 2022 11:30 AM VA-TOBACCO NEVER USED [place] Jul 15, 2021 09:00 AM VA-TOBACCO NEVER USED [place] Oct 05, 2018 10:22 AM VA-TOBACCO NEVER USED [place] Aug 13, 2017 12:59 PM QUIT TOBACCO USE > 7 YEARS AGO quit cigarettes after the but does smoke marijuana [place] Advance Directives: All historical and current Section Date Range: From patient's date of to the date document was created. This section includes ALL of a patient's completed or amended DC Advance and Rescinded Directives. The entries below indicate that a directive exists for the patient, but an actual copy is not included with this document. The data comes from all DC facilities. Date Advance Directives Provider Source Oct [...] the Encounter. The data comes from all [place] treatment facilities. Date/Time Radiology Report Provider Source Sep 04, 2024 09:18 AM ULTRASOUND NECK (THYROID,HEAD,SOFT TISSUE): JARON PARKER [id number] -[id number] M Exm Date: SEP 04, 2024@09:18 Req Phys: KEON VILLAVICENCIO Pat Loc: CWM/SO/PACT 10 (Req'g Loc) Img Loc: ULTRASOUND Service: Unknown [place] [address] (Case 21 COMPLETE) ULTRASOUND NECK (THYROID,HEAD,SOF(US Detailed) CPT:20446 Reason for Study: thyroid nodule Clinical History: please compare to thyroid U/S 07/20/23 left upper lobe nodule 0.8cm Report Status: Verified Date Reported: SEP 04, 2024 Date Verified: SEP 04, 2024 Base Loader E-Sig:/ES/RACHEAL MITCHELL Report: THYROID ULTRASOUND Technique: Multiplanar [...] Primary Interpreting Staff: RACHEAL MITCHELL, Staff Physician (Base Loader) /RACHEAL JOHNS [facility] Encounter Notes: All associated encounter notes This [...] an Advance Directive on file at this [facility]. No updates are needed at this time. [...] 63 yo MALE who presents at the [facility] for his annual wellness exam. Labs completed [...] 0.92 HISTORY: PERIOD OF SERVICE - [facility] [employer] FROM Feb TO Mar COMBAT SERVICE INDICATED: [...] FBW prior ========= UPCOMING APPOINTMENTS: 09/04/2024 09:00 CWM/SO/MHC/GRAY No barriers; Patient understands and agrees to [...] of active outpatient prescriptions dispensed from this DC (local) and dispensed from another DC or [facility] facility (remote) as well as inpatient orders [...] Remote Allergy/ADR Data available for this patient [facility] [place] [facility] TRAMADOL Med Recon NoGlossary (Tool #1) INCLUDED IN THIS LIST: Alphabetical list of active outpatient prescriptions dispensed from this VA (local) and dispensed from another DC or [facility] facility (remote) as well as inpatient orders (local pending and active), local clinic medications, locally documented non-VA medications, and local prescriptions that have or been discontinued in the past 90 days. Non-VA Meds Last Documented On: Jul 06, 2023 NOTE The display of VA prescriptions dispensed from another DC or [facility] facility (remote) is limited to active outpatient prescription entries matched to National Drug File at the originating site and may not include some items such as investigational drugs, compounds, etc. NOT INCLUDED IN THIS LIST: Medications self-entered by the patient into personal health records (i.e. [employer]) are NOT included in this list. Non-VA medications documented outside this DC, remote inpatient orders (regardless of status) and remote clinic medications are NOT included in this list. The patient and provider must always discuss medications the patient is taking, regardless of where the medication was dispensed or obtained. ------ OUTPT FINASTERIDE 5MG TAB (Status = Active) TAKE ONE TABLET BY MOUTH ONCE DAILY FOR ENLARGED PROSTATE Rx# [id number] Last Released: 08/08/24 Qty/Days Supply: Rx Expiration Date: 04/27/25 Refills Remainin Indication: FOR ENLARGED PROSTATE OUTPT ROSUVASTATIN CA 20MG TAB (Status = Active) TAKE ONE-HALF TABLET BY MOUTH AT BEDTIME FOR CHOLESTEROL Rx# [id number] Last Released: 07/18/24 Qty/Days Supply: Rx Expiration [...] THERAPY (SIGNA SPRAY REPLACES ALPHA-STIM SOLUTION) Rx# [id number] Last Released: 06/22/24 Qty/Days Supply: 250/90 Rx [...]
--- NOTE | 2024-12-26 08:29 | MHC.OFFVIS ---
Intake Visit Reasons: 3 month follow up/ MRI/ PSA Intake Note: Patient is present for 3M/MRI/PSA Urology Medication:FINASTERIDE,TADALAFIL Antibiotic Allergy:NONE Blood Thinner:ASPIRIN Resource Economist Required: No Allergies tramadol [TRAMADOL] Allergy (Unknown, Verified 12/26/24 08:31) HIVES HPI Comments Details: Roberto PARKER is a very pleasant male. He is a patient of Dr. Dan. He is seen for the following urologic conditions. - prostate cancer - erectile dysfunction PSA rise 4.4 Repeat MRI showed 2 x 5 mm lesions PI-RADS 4 No progression volume of disease Recommend repeat MRI ultrasound fusion biopsy Remains on daily tadalafil 5 mg for erections - mostly effective. Occasionally unable to get erection. PSA happened when he has fatigue. Discussed proper recovery in 48 hours prior. May use on demand as required. We will provide 10 mg to use on demand if he calls Prostate cancer 01/19 PSA 5.8 grade group 1, low volume pT1c, [address] Real 01/19 - 05/22 3.9, 09/22 3.6, 01/20 3.4, 08/22 3.8 MRI ultrasound fusion biopsy 01/19 - Grade group 1, low risk, low volume, pT1c, PSA at diagnosis 5.8, multiple prior negative biopsies Pathology single core positive [place] 3 + 3 - (C) - right lateral Imaging - 01/17 MRI 36 g prostate, no suspicious signal abnormalities to suggest presence of clinically significant prostate cancer. Poorly defined 1.6 cm signal abnormality posterolateral on the right in the mid gland Lower Urinary Tract Symptoms: Discussed results Current visit is for further evaluation of, lower urinary tract symptoms, predominate obstructive symptoms - symptoms stable on finasteride Prostate Symptom Score 10/17 , Moderate (9-19), Bother 2. Symptoms include 10/17 , incomplete emptying, weak stream, nocturia (>2), and are progressing 09/17 , incomplete emptying, weak stream, and are stable. PSA 10/17 at [place] 5.2 - 3 prior negative biopsies - 10/17 4.6, 03/16 5.2 started finasteride, 09/17 3.5, 11/17 4.6 15%, 01/18 5.8 Erectile dysfunction Responsive to Viagra 100 mg Improved response to daily tadalafil [facility] Medical History (Updated 10/05/23 @ 10:41 by Quintin Real MD) Arthritis HX: anticoagulation Sleep apnea Pericarditis Hypercholesterolemia BPH (benign prostatic hyperplasia) Anal fissure Hyperlipidemia Ejaculatory disorder Incomplete emptying of bladder Weak urinary stream Bladder neck obstruction Elevated PSA Surgical History Hx of prostate biopsy History of surgery History of bunionectomy History of tonsillectomy History of colonoscopy Family History Paternal Grandfather Prostate cancer Social History Are you a primary rn primary care to a significant other at home: No Do you presently have visiting nurse or other home services: No Patient Tobacco Use Status: Never used Tobacco Review of Systems Const Denies chills and Denies fever(s) Card Reports no additional complaints and Denies syncope Resp Denies cough GI Denies abdominal pain and Denies heartburn Reports as per HPI and Denies change in libido Neuro Denies syncope Psych Denies change in libido Endo Denies change in libido Physical Exam Const General: cooperative, healthy appearing, comfortable and no acute distress Orientation/consciousness: patient oriented x3 HEENT Face and sinus: Yes normal facial exam Mouth: moist mucous membranes Neck Neck: Yes normal visual inspection, Yes full ROM and Yes trachea midline Chest Chest palpation & inspection: normal inspection of the chest Resp Effort & Inspection: normal respiratory effort, able to speak in complete sentences and no respiratory distress GI Inspection: Yes normal to inspection Back/Spine/Pelvis Cervical Spine: normal cervical lordosis Thoracic/Lumbar Spine: thoracic and lumbar spine normal to inspection Skin General skin exam: no rashes or lesions noted Neuro General: patient oriented x3, gait normal, tone normal and moves all extremities Extrem General: Yes normal to inspection and Yes capillary refill normal Results AMB Urinalysis, Automated UA Leukoctes 0 Bossman/uL Last Edit by ALLIE Otero on 12/26/24 08:40 UA Nitrite Negative Last Edit by ALLIE Otero on 12/26/24 08:40 UA Urobilinogen 0.2 mg/dL Last Edit by ALLIE Otero on 12/26/24 08:40 UA Protein 0 mg/dL Last Edit by ALLIE Otero on 12/26/24 08:40 UA pH 6.0 Last Edit by ALLIE Otero on 12/26/24 08:40 UA Blood 0 David/uL Last Edit by ALLIE Otero on 12/26/24 08:40 UA Specific [place] 1.015 Last Edit by ALLIE Otero on 12/26/24 08:40 UA Ketone Negative Last Edit by ALLIE Otero on 12/26/24 08:40 UA Bilirubin 0 mg/dL Last Edit by ALLIE Otero on 12/26/24 08:40 UA Glucose 0 mg/dL Last Edit by ALLIE Otero on 12/26/24 08:40 Results Reviewed Results Reviewed: Laboratory Last Values Urine pH (Auto) 6.0 12/26/24 08:39 Specific [place] (Auto) 1.015 12/26/24 08:39 Urine Protein (Auto) 0 mg/dL 12/26/24 08:39 Glucose (UA)(Auto) 0 mg/dL 12/26/24 08:39 Urine Ketones (Auto) Negative 12/26/24 08:39 Urine Blood (Auto) 0 David/uL 12/26/24 08:39 Urine Nitrite (Auto) Negative 12/26/24 08:39 Urine Bilirubin (Auto) 0 mg/dL 12/26/24 08:39 Urine Urobilinogen (Auto) 0.2 mg/dL 12/26/24 08:39 Leukocyte Esterase (Auto) 0 Bossman/uL 12/26/24 08:39 Assessment & Plan Assessment & Plan (1) Erectile dysfunction due to arterial insufficiency: Code(s): N52.01 - Erectile dysfunction due to arterial insufficiency Category: Medical (2) Prostate cancer: Code(s): C61 - Malignant neoplasm of prostate Category: Medical Plan Risks, benefits and alternatives to therapy were discussed. These include but are not limited to infection, bleeding, damage to local organs and tissues, need for further interventions. Anesthetic risks regarding cardiac arrhythmia, blood clots, and potential mortality were discussed. The patient understands the typical recovery time and the outpatient nature of the procedure. After consideration of these risks the patient gives full informed consent and they wish to move ahead with the procedure. - prostate MRI ultrasound fusion biopsy Orders: Orders AMB Urinalysis Automated Today Z13.9 - Encounter for screening, unspecified Patient Instructions: This note is constructed using voice recognition software. While every effort has been made to ensure accuracy bowling ball finisher errors may have been included. Imaging studies, laboratory and physical exam results were discussed and reviewed in detail. No major barriers to patient understanding were identified. An opportunity to ask questions regarding the treatment plan was provided. All questions were answered. The patient expressed understanding and agreement with the above treatment plan. The patient is aware they should contact our office by phone for worsening of their current condition or the appearance of new urologic symptoms. Compliance is encouraged with any medications and followup testing that is ordered. It is a privilege to participate in the urologic care of your patient. If you have any questions or concerns regarding treatment for the above conditions, or other urologic issues, please do not hesitate to contact me. The office telephone contact is [phone]. Sincerely, Dr Quintin Real MD, [facility] - Urology Compassionate Specialist Care for the Genitourinary System Coding Level of Care Code Est Pt Level 4 (57570) Complex EM visit Add On G2211 Diagnoses Erectile dysfunction due to arterial insufficiency N52.01 Prostate cancer C61
== END 2024-12-26 09:06 | disposition home or self-care (01) ==
LOC: HO.HUSH 08:04
PROVIDERS: PCP Family Medicine; Visit Provider Urology
DX: N52.01 Erectile dysfunction due to arterial insufficiency (principal); C61 Malignant neoplasm of prostate; Z13.9 Encounter for screening, unspecified
CPT/HCPCS: 99214; G2211

== ENCOUNTER → 2024-12-26 08:03 | Outpatient (BNVA) | payer OTHER, SELFPAY | PROVIDERS: PCP Family Medicine; Visit Provider Urology | DX: N52.01 Erectile dysfunction due to arterial insufficiency (principal); C61 Malignant neoplasm of prostate | CPT/HCPCS: 81003; 99212 ==

== ENCOUNTER 2025-04-16 05:46 | Day surgery (SDC) | payer OTHER, SELFPAY ==
--- OUTSIDE RECORDS SUMMARY | 2025-02-14 05:00 | XMS_ITS | Encounter Summary ---
Author Name [facility] [place] Organization [facility] [place] [facility] [place] Address [address] [place] [id number] Care Team Providers Care It Security Architect Name Role Phone KEON VILLAVICENCIO Primary Care [...] Herring's Name Patient's Relationship to Policy Herring [facility] MEDICAID MEDICAID MEDIC AID Aug 30, 2014 MEDICAI D [id number] JARON PARKER PATIENT Selected Encounter This section includes the information on record at [place] for the Encounter. Date/Time Encounter Type Encounter Description Reason Provider Source Feb 14, 2025 09:00 AM OFFICE O/P EST LOW 20 MIN PRIMARY CARE/MEDICINE ICD-10-CM E78.5 Hyperlipidemia, unspecified KEON VILLAVICENCIO Encounter Template Text not used by [place] Assessments - Encounter Diagnoses This section includes the primary and secondary diagnoses documented for the Encounter. Date/Time Primary/Secondary Diagnosis Diagnosis Name Provider Source Feb 14, 2025 09:40 AM PRIMARY Hyperlipidemia, unspecified KEON VILLAVICENCIO Feb 14, 2025 09:40 AM SECONDARY Prediabetes KEON VILLAVICENCIO Plan of [...] 20 appointments. The data comes from all [facility]. Appointment Date/Time Appointment Type Appointme nt Facility Name Mar 01, 2025 08:00 AM AMBULATORY - PSYCHIATRY [facility] Mar 28, 2025 08:00 AM AMBULATORY - PSYCHIATRY [facility] Apr 16, 2025 01:30 PM [facility] Apr 19, 2025 08:30 AM AMBULATORY - PSYCHIATRY [facility] Aug 15, 2025 09:00 AM [facility] Active, Pending, and Scheduled Orders This section includes a listing of several types of active, pending, and scheduled orders, including clinic medications orders, diagnostic test orders, procedure orders and consult orders; where the start date of the order is 45 days before the date of the Encounter or 45 days after the date of theEncounter. The data comes from all [facility]. Test Date/Time Test Type Test Details Facility Name Feb 23, 2025 09:11 AM Consult Order COMMUNITY CARE-UROLOGY Cons Operations Management Trainee's Choice [facility] Lab Results: +/- 30 days of the encounter This section includes the Chemistry and Hematology Lab Results on record with [place] for the patient. Radiology Reports and Pathology Reports are provided separately, in subsequent sections. Lab Results This section contains the Chemistry/Hematology Results that were resulted 30 days before or 30 daysafter the date of the Encounter. Date/Time Source Result Type Result - Unit Interpretation Reference Range Specimen Type Comment Feb 13, 2025 09:27 AM [facility] TSH SERUM Specimen Type: SERUM No comment entered. Ordering Provider: KEON VILLAVICENCIO Report Released Date/Time: Aug 17, 2024 05:42 AM Reporting Lab: [address] [address] Performing Lab: [address] [address] TSH 1.53 u[IU]/mL 0.35-4.94 Feb 13, 2025 09:27 AM [facility] GLUCOSE FASTING SERUM Specimen Type: SERUM No comment entered. Ordering Provider: KEON VILLAVICENCIO Report Released Date/Time: Aug 17, 2024 05:42 AM Reporting Lab: [facility] [address] [facility] [address] Performing Lab: [address] [address] GLUCOSE 114 mg/dL H 65-100 Feb 13, 2025 09:27 AM [facility] LIPID PANEL FASTING SERUM Specimen Type: SERU M No comment entered. Ordering Provider: KEON VILLAVICENCIO Report Released Date/Time: Aug 17, 2024 05:42 AM Reporting Lab: [address] [address] Performing Lab: [address] [address] CHOLESTEROL 167 mg/dL TRIGLYCERIDE 67 mg/dL 0-150 LDL calculated 77 mg/dL 0-129 CHOL/HDL 2.2 HDL CHOLESTEROL 77 mg/dL >40 Feb 13, 2025 09:27 AM [facility] LIVER FUNCTION SERUM Specimen Type: SERUM No comment entered. Ordering Provider: KEON VILLAVICENCIO Report Released Date/Time: Aug 17, 2024 05:42 AM Reporting Lab: [address] [address] Performing Lab: [address] [address] PROTEIN,TOTAL 7.5 g/dL 6.4-8.3 ALBUMIN 4.7 g/dL H 3.2-4.6 ALKALINE PHOSPHATASE 55 U/L 40-150 AST 28 U/L 5-34 ALT 22 U/L 0-55 BILIRUBIN, TOTAL 0.5 mg/dL 0.2-1.2 Feb 13, 2025 09:27 AM [facility] HEMOGLOBIN A1C PANEL BLOOD Specimen Type: BLO OD Comment: Values obtained from A1C measurements can vary. For atypical A1C assays, a reported value of 7.0 could actually be between 6.72 and 7.28 if measured by a reference method. A reported value of 9.0 could actually be between 8.73 and 9.27. Ref: http://www.ngsp.org/CAPdata.asp Ordering Provider: KEON VILLAVICENCIO Report Released Date/Time: Aug 17, 2024 05:42 AM Reporting [facility]: [facility] [address] [address] Performing Lab: [facility] [address] [facility] [address] HEMOGLOBIN A1C 5.6 4.0-5.6 Social History: Smoking Status (Most current) and [...] 06, 2023 09:00 AM VA-TOBACCO NEVER USED TOKIO Tobacco Use History This section includes a history of the smoking, or tobacco-related health factors, that were collected on or before the date of the Encounter. The data comes from the [place] facility where the Encounter took place. Date/Time Smoking Status/Tobacco Use Comment F acility Jul 28, 2022 11:30 AM VA-TOBACCO NEVER USED TOKIO Jul 15, 2021 09:00 AM VA-TOBACCO NEVER USED TOKIO Oct 05, 2018 10:22 AM VA-TOBACCO NEVER USED TOKIO Aug 13, 2017 12:59 PM QUIT TOBACCO USE > 7 YEARS AGO quit cigarettes after the but does smoke marijuana TOKIO Advance Directives: All historical and current Section [...] the Encounter. Date/Time Encounter Note(s) Provider Source Feb 14, 2025 09:22 AM PREVENTIVE MEDICIN E NURSING NOTE: LOCAL TITLE: CLINICAL REMINDERS/NURSING STANDARD TITLE: PREVENTIVE MEDICINE NURSING NOTE DATE OF NOTE: FEB 14, 2025@09:22 ENTRY DATE: FEB 14, 2025@09:22:57 AUTHOR: KALLI TRIVEDI COSIGNER: URGENCY: STATUS: COMPLETED Homelessness/Food Insecurity Screen: In the past 2 [...] have money to get more. Never true Pneumococcal Conjugate Vaccine (PCV15/PCV20/PCV21): Refuses PCV vaccine Immunization: PNEUMOCOCCAL CONJUGATE, UNSPECIFIED FORMULATION Refusal Reason: PATIENT DECISION Patient refuses all immunization(s) in the PneumoPCV group Date Documented: 02/14/25 09:23 Influenza Immunization: No influenza vaccination was received during the recent influenza season. COVID-19 Immunization: Refused Moderna Monovalent COVID-19 vaccine Immunization: COVID-19 (MODERNA), MRNA, LNP-S, PF, 50 MCG/0.5 ML (AGES 12+ YEARS) Refusal Reason: PATIENT DECISION Patient refuses all immunization(s) in the COVID-19 group Date Documented: 02/14/25 09:23 Herpes Zoster (Shingles) Vaccine: The patient declines to receive the recommended dose of zoster (shingles) vaccine. Immunization: ZOSTER RECOMBINANT Refusal Reason: PATIENT DECISION Patient refuses all immunization(s) in the ZOSTER group Date Documented: 02/14/25 09:23 RHS Screen: RHS Screen Session Format: Face [...] you were unable to say no Never The HITS tool (items 1-4 above) is [place] copyright protected by Morales Hart MD, and the user has full rights to use it throughout the [place] system. PRIMARY SCREEN RESULT: The Primary Screen [...] /isak/ KALLI TRIVEDI LPN PACT 10 Signed: 02/14/2025 09:24 KALLI TRIVEDIFIELD Feb 14, 2025 04:47 AM PHYSICIAN NOTE: LOCAL TITLE: MD NOTE STANDARD TITLE: PHYSICIAN NOTE DATE OF NOTE: FEB 14, 2025@04:47 ENTRY DATE: FEB 14, 2025@04:47:41 AUTHOR: KEON VILLAVICENCIO EXP COSIGNER: URGENCY: STATUS: COMPLETED HISTORY OF PRESENT ILLNESS: JARON PARKER is a 64 yo MALE who presents at the [facility] for f/u to hyperlipidemia, prediabetes, and elevated TFT's. Labs completed. Active problems - Computerized Problem [...] ONE TABLET BY MOUTH ONCE DAILY Refills: 1 Last : 11/18/24 Indication: FOR ENLARGED PROSTATE Expr : 04/27/25 3) QUETIAPINE FUMARATE 100MG TAB Qty: 30 for 30 ACTIVE Issue: 01/17/25 days Sig: TAKE ONE TABLET BY MOUTH AT Refills: 2 Last : 01/17/25 BEDTIME NEEDED Expr : 01/18/26 Indication: FOR INSOMNIA AND MOOD 4) ROSUVASTATIN CA 20MG TAB Qty: 45 for 90 days ACTIVE Issue: 10/23/24 Sig: TAKE ONE-HALF TABLET BY MOUTH AT Refills: 3 Last : 10/23/24 BEDTIME FOR CHOLESTEROL Expr : 10/24/25 Indication: FOR HIGH CHOLESTEROL Start Date Active Non-VA Medications Status Stop Date 1) Non-VA TADALAFIL 5MG TAB SiMG BY MOUTH ACTIVE ONCE DAILY NEEDED 5 Total Medications ALLERGIES: ========= TRAMADOL LAB HISTORY: CHEM 7 TREND Collection DT Spec GLUCOSE BUN CREATIN Sodium K+/Pot CL CO2 02/13/2025 09:27 SERUM 114 H 07/17/2024 07:45 SERUM 103 H 12 0.98 140 4.5 108 25 06/28/2023 07:32 SERUM 95 15 1.03 140 4.5 105 25 07/21/2022 07:33 SERUM 95 18 1.12 142 4.4 105 28 HEMOGLOBIN A1C TREND Collection DT Spec HGBA1c 02/13/2025 09:27 BLOOD 5.6 07/17/2024 07:45 BLOOD 5.7 H 01/14/2024 07:32 BLOOD 5.5 06/28/2023 07:32 BLOOD 5.9 H 07/21/2022 07:33 BLOOD 5.8 H LIPID PANEL TREND Collection DT Spec CHOL HDL CHO/HDL LDL-c TRIG 02/13/2025 09:27 SERUM 167 77 2.2 77 67 07/17/2024 07:45 SERUM 165 63 H 2.6 91 54 01/14/2024 07:32 SERUM 179 79 H 2.3 86 69 06/28/2023 07:32 SERUM 142 43 3.3 82 83 07/21/2022 07:33 SERUM 171 67 H 2.6 87 85 LIVER PANEL TREND Collection DT Spec AST ALT T BILI ALK TROY T. PROT ALBUMIN 02/13/2025 09:27 SERUM 28 22 0.5 55 7.5 4.7 H 07/17/2024 07:45 SERUM 18 17 0.3 52 6.6 3.7 01/14/2024 07:32 SERUM 22 22 0.5 54 7.7 4.2 07/26/2023 07:31 SERUM 45 H 90 H 0.4 77 7.4 4.0 06/28/2023 07:32 SERUM 51 H 83 H 0.5 85 7.5 4.0 Collection DT Spec TSH 02/13/2025 09:27 SERUM 1.53 HISTORY: PERIOD OF SERVICE - [employer] FROM Feb TO Mar COMBAT SERVICE INDICATED: No VITAL SIGNS: Blood Pressure 139/76 (02/14/2025 09:22) Pulse 65 (02/14/2025 09:22) Respiration 16 (02/14/2025 09:22) Pulse Oximetry 99% (02/14/2025 09:22) Temperature 97.8 F [36.6 C] (02/14/2025 09:22) Pain 0 (02/14/2025 09:22) Height 68 in [172.7 cm] (02/14/2025 09:22) Weight 172 lb [78.02 kg] (02/14/2025 09:22) BMI BMI: 26.2 REVIEW OF SYSTEMS: CARDIOVASCULAR: No chest pain, no palps RESPIRATORY: No SOB, no wheezing GASTROINTESTINAL: No abd pain, no N/V/D MUSCULOSKELETAL: No joint pain NEUROLOGIC: No H/A, no weakness EXAMINATION: GENERAL: WD/WN in NAD HEENT: Moist mucosa NECK: Supple HEART: RRR, S1-S2, no murmurs LUNGS: CTA B/L ABDOMEN: Soft, NT/ND EXTREMITIES: FROM x 4, no edema ASSESSMENT/PLAN: 1. Hyperlipidemia: well controlled on rosuvastatin 10mg/QHS Collection DT Spec CHOL HDL CHO/HDL LDL-c TRIG 02/13/2025 09:27 SERUM 167 77 2.2 77 67 2. Prediabetes: advised to reduce carbs/simple sugars in diet FBS 114 - A1c 5.6% 3. Hx Abnormal TSH Levels: currently WNL FOLLOW UP: 6 mths - AWE - FBW prior ========= UPCOMING APPOINTMENTS: 03/01/2025 08:00 [facility] SW 3 04/19/2025 08:30 [facility] LATHMAKER 1 No barriers; Patient understands and agrees to current treatment plan. If pt has any questions, concerns, or changes in current health status he/she will call or come [facility] to the [facility]. HIV Screening: Patient has been offered HIV testing and has declined. I have explained that HIV testing is recommended for all adults, even if all risk factors are absent. The patient was educated on the risk of delayed screening. Medication Reconciliation: Outpatient: Has the patient been taking medications as documented in the EMLR? YES: The patient has been taking medications as documented in the EMLR. Essential Medication List for Review used to complete this medication reconciliation. INCLUDED IN THIS LIST: Alphabetical list of active outpatient prescriptions dispensed from this [facility] (local) and dispensed from another [place] or DoD facility (remote) as well as [...] Remote Allergy/ADR Data available for this patient [place] [facility] [place] TRAMADOL Med Recon NoGlossary (Tool #1) INCLUDED IN THIS LIST: Alphabetical list of active outpatient prescriptions dispensed from this [place] (local) and dispensed from another [place] or DoD facility (remote) as well as inpatient orders (local pending and active), local clinic medications, locally documented non-VA medications, and local prescriptions that have or been discontinued in the past 90 days. Non-VA Meds Last Documented On: Jul 06, 2023 NOTE The display of VA prescriptions dispensed from another VA or DoD facility (remote) is limited to active outpatient prescription entries matched to National Drug File at the originating site and may not include some items such as investigational drugs, compounds, etc. NOT INCLUDED IN THIS LIST: Medications self-entered by the patient into personal health records (i.e. [employer]) are NOT included in this list. Non-VA medications documented outside this [place], remote inpatient orders (regardless of status) and remote clinic medications are NOT included in this list. The patient and provider must always discuss medications the patient is taking, regardless of where the medication was dispensed or obtained. ------ OUTPT FINASTERIDE 5MG TAB (Status = Active) TAKE ONE TABLET BY MOUTH ONCE DAILY FOR ENLARGED PROSTATE Rx# [id number] Last Released: 11/16/24 Qty/Days Supply: Rx Expiration Date: 04/27/25 Refills Remainin Indication: FOR ENLARGED PROSTATE OUTPT GOV-PAXLOVID [id number]/[id number] TAB PKT 3 (Status = ) TAKE 2 TABLETS NIRMATRELVIR AND 1 TABLET RITONAVIR BY MOUTH TWICE DAILY FOR COVID-19 Rx# [id number] Last Released: 12/08/24 Qty/Days Supply: 01/01 Rx Expiration Date: 01/07/25 Refills Remainin Indication: FOR COVID-19 OUTPT LORATADINE 10MG TAB (Status = ) TAKE ONE TABLET BY MOUTH ONCE DAILY NEEDED FOR ALLERGY Rx# [id number] Last Released: 12/08/24 Qty/Days Supply: Rx Expiration Date: 01/07/25 Refills Remainin Indication: FOR ALLERGY OUTPT QUETIAPINE FUMARATE 100MG TAB (Status = Active) TAKE ONE TABLET BY MOUTH AT BEDTIME NEEDED FOR INSOMNIA AND MOOD Rx# [id number] Last Released: 01/17/25 Qty/Days Supply: Rx Expiration Date: 01/18/26 Refills Remainin Indication: FOR INSOMNIA AND MOOD OUTPT QUETIAPINE FUMARATE 25MG TAB (Status = ) TAKE ONE TABLET BY MOUTH AT BEDTIME FOR INSOMNIA AND MOOD Rx# [id number] Last Released: 12/01/24 Qty/Days Supply: Rx Expiration Date: 12/29/24 Refills Remainin Indication: FOR INSOMNIA AND MOOD OUTPT ROSUVASTATIN CA 20MG TAB (Status = Active) TAKE ONE-HALF TABLET BY MOUTH AT BEDTIME FOR CHOLESTEROL Rx# [id number] Last Released: 10/25/24 Qty/Days Supply: Rx Expiration Date: 10/24/25 Refills Remainin Indication: FOR HIGH CHOLESTEROL Non-VA TADALAFIL 5MG TAB TAKE ONE TABLET BY MOUTH ONCE DAILY NEEDED Non-VA medication not recommended by VA provider. Patient wants to buy from Non-VA pharmacy. Medication prescribed by Non-VA provider. OUTPT TRAZODONE HCL 100MG TAB (Status = Discontinued) TAKE ONE-HALF TABLET BY MOUTH AT BEDTIME NEEDED FOR INSOMNIA ASSOCIATED WITH DEPRESSION MAY TAKE ANOTHER ONE-HALF OF A TABLET IF THE FIRST HALF IS NOT EFFECTIVE Rx# [id number] Last Released: 11/07/24 Qty/Days Supply: Rx Expiration Date: 11/08/25 Refills Remainin Indication: FOR INSOMNIA ASSOCIATED WITH DEPRESSION ------ SUPPLIES ------ OUTPT ELECTRODE SPRAY,SIGNASPRAY (Status = Active) APPROPRIATE AMOUNT TOPICALLY DIRECTED BY PROVIDER FOR USE WITH ALPHA-STIM THERAPY (SIGNA SPRAY REPLACES ALPHA-STIM SOLUTION) Rx# [id number] Last Released: 06/22/24 Qty/Days Supply: /90 Rx Expiration Date: 06/23/25 Refills Remainin Indication: FOR USE WITH ALPHA-STIM THERAPY /es/ KEON VILLAVICENCIO MD Primary Care Physician Signed: 02/14/2025 09:40 KEON VILLAVICENCIO TOKIO
--- OUTSIDE RECORDS SUMMARY | 2025-03-12 14:57 | XMS_ITS | Data Portability ---
Author Organization [facility], [address] Address [address] [place] [address] Assessment No assessment recorded. Plan of Treatment Reminders Order Date Submit Date Provider Last Modified By Organization Details Last Modified Time Details Appointments None recorded. Lab None recorded. Referral orthopedic surgeon referral 2022 023 [email or web address] Not available 10:34:29 Procedures None recorded. Surgeries None recorded. Imaging XR, hip + pelvis, unilateral 2022 023 [email or web address], [address] [place] [address], [address], 12:19:42 Medication Orders Tylenol Arthritis Pain 650 mg tablet,exte nded release 2022 023 [facility] [address], [address] [place] [address], [address], 10:47:24 Medrol (Michele) 4 mg tablets in a dose pack 2022 023 [facility] [address], [address] [place] [address], [address], 10:29:05 Patient TargetsNo targets recorded. Patient Instructions Encounter Date Encounter Id Patient Instructions Last Modified By Organization Details Last Modified Time 11/20/2022 [id number] hip pain: care instructions [email or web address] Not available 11/20/2022 10:32:02 Reason for Referral Orthopedic Surgeon Referral for Pain of right hip joint Referring Physician: Gabriele Cross, Urgent Care, Encounter Date: 11/20/2022 Problems Name Problem SNOMED Code Status Onset Date Resolution Date Notes Provider Name and Address Organization Details Recorded Time Hyperlipidemia 74880096 Active 2022 CHRYSTAL NATE ny, [place] - [facility] 3 09:50:55 Disorder of prostate 51527097 Active 2022 CHRYSTAL ny, PA - [facility] 3 09:51:14 Problem Notes None recorded. Medical Equipment None Reported. Allergies Allergen ID Allergen Name Allergen Category Reaction Reaction Severity Criticality Documentation Date Start Date Code Code System Note Provider Name and Address Organization Details Recorded Time 800875 tramadol medicatio n Not available Not available Not available 11/20/2022 98359 RxNorm CHRYSTAL SULLIVAN anant, PA - [facility] 3 09:50:00 Medications [...] Heart rate Respiratory rate Body temperature Systolic And Diastolic Provider Name and Address Organization Details Last Updated DateTime 172.72 cm 26.6 kg/m2 14162.6 6 g 99 % 99 % 88 /min 16 /min 97.5 [degF] 134/87 mm[Hg] CHRYSTAL HAYNES [employer] 09:49:08 Social History Question Answer Notes LastModified by Datalink Details LastModified Time Tobacco Smoking Status Never Smoker CHRYSTAL ny [place] - [facility] 11/20/2022 09:51:41 Have You Recently Traveled Abroad? No Information not available 11/20/2022 Are You Currently In School? No Information not available 11/20/2022 Sex: Unknown Functional Status Question Answer Note LastModified by Datalink Details LastModified Time Do you use any illicit or recreational drugs? No Information not available 11/20/2022 What is your level of alcohol consumption? None Information not available 11/20/2022 Are you currently employed? Yes Information not available 11/20/2022 Mental Status None recorded. Family History Nothing Reported. Medical History No medical history recorded. Past Encounters Encounter ID Performer Location Encounter Start Date Encounter Closed Date Diagnosis/Indication Diagnosis SNOMED-CT Code Diagnosis ICD10 Code Diagnosis Note [id number] [address] [place] [address] 06/18/2020 19:37:15 06/18/2020 20:29:54 [id number] [address] [place] [address] 02/17/2021 15:33:23 02/17/2021 16:18:16 [id number] [address] [place] [address] 01/22/2021 11:41:44 01/22/2021 15:00:36 [id number] [address] [facility], [place] [address] 09/12/2020 15:39:34 09/12/2020 18:34:15 [id number] [address] [facility] [place] [address] 03/17/2019 11:49:06 03/17/2019 13:02:14 [id number] [address] [facility] [place] [address] 12/11/2021 08:02:19 12/11/2021 08:48:23 [id number] [address] [place] [address] 09/18/2020 08:02:26 09/18/2020 08:28:18 [id number] [address] [place] [address] 05/06/2021 08:06:16 05/06/2021 09:33:27 [id number] [address] [place] [address] 06/18/2020 19:41:50 06/18/2020 20:29:59 [id number] Gabriele Cross, DO [address] [place] [address] 11/20/2022 09:30:56 11/20/2022 10:34:29 Pain of right hip joint [id number] 64147 M25.551 XRAYhe cannot have NSAID 2/2 plavixwill [...] Recorded Advance Directives Directive None Recorded Payers Insurance Date Sequence Insurance Name Policy Number Policy Herring Covered Member ID Herring Member ID Guarantor Name 11/20/2022 1 BCBS-ID: [employer] [id number] Roberto Gibbs [id number] Roberto Gibbs 07/29/2022 [place] [employer] ([employer] - [facility] Roberto Gibbs 11/20/2022 [facility] Roberto Gibbs [id number] Roberto Gibbs Notes Date Note Type Note [...] Gabriele Cross, DO [address] [place], [address], [place] - [facility] 11/20/2022 10:47:27
--- NOTE | 2025-04-13 10:33 | HO.ANESPROP2 ---
Documented by User: Rhonda Aparicio NP 04/13/25 10:48 HPI - Anesthesia Eval Consult details Narrative: 64yo M for Targeted Prostate Needle Biopsy PMFSH Active Problems Active Problems: All Active Problems Urinary hesitancy due to benign prostatic hyperplasia (Acute) Weak urinary stream (Acute) Prostate cancer (Acute) Erectile dysfunction due to arterial insufficiency (Acute) Prostatitis (Acute) Elevated PSA (Acute) Bladder neck obstruction (Acute) Past Medical History Medical History Arthritis HX: anticoagulation Sleep apnea Pericarditis Hypercholesterolemia BPH (benign prostatic hyperplasia) Anal fissure Hyperlipidemia Ejaculatory disorder Incomplete emptying of bladder Weak urinary stream Bladder neck obstruction Elevated PSA Family History Family History Paternal Grandfather Prostate cancer Family history of problems with anesthesia: No Surgical History Surgical History Hx of prostate biopsy History of surgery History of bunionectomy History of tonsillectomy History of colonoscopy History of Problems with Anesthesia: No Social History Social History Are you a primary career development specialist to a significant other at home: No Do you presently have visiting nurse or other home services: No Patient Tobacco Use Status: Never used Tobacco Substance Use Frequency: Daily Have you been hit, kicked, punched, or otherwise hurt by someone within the past year? If so, by whom?: No Are you DNR?: No Advance Directives: No Advance Directives Information Provided: Yes Poor oral hygiene: No Meds Allergies Allergy/AdvReac Type Severity Reaction Status Date / Time tramadol (TRAMADOL) Allergy Unknown HIVES Verified 04/16/25 07:31 Home Medications ?Medication ?Instructions ?Recorded ?Confirmed ?Last Taken ?Type aspirin 81 mg tablet,delayed 81 mg PO DAILY 08/13/22 04/16/25 01/10/23 History release rosuvastatin 10 mg tablet 10 mg PO BEDTIME 08/13/22 04/16/25 Unknown History Assessment and Plan Assessment Anesthesia Assessment: Chart Reviewed Final Anesthetic Review Family History of Problems with Anesthesia: No History of Problems with Anesthesia: No Documented by User: Fouzia Marquez MD 04/16/25 08:22 PMFSH Past Medical History Medical History Arthritis HX: anticoagulation Sleep apnea Pericarditis Hypercholesterolemia BPH (benign prostatic hyperplasia) Anal fissure Hyperlipidemia Ejaculatory disorder Incomplete emptying of bladder Weak urinary stream Bladder neck obstruction Elevated PSA Family History Family History Paternal Grandfather Prostate cancer Surgical History Surgical History Hx of prostate biopsy History of surgery History of bunionectomy History of tonsillectomy History of colonoscopy Social History Social History Are you a primary career development specialist to a significant other at home: No Do you presently have visiting nurse or other home services: No Patient Tobacco Use Status: Never used Tobacco Substance Use Frequency: Daily Have you been hit, kicked, punched, or otherwise hurt by someone within the past year? If so, by whom?: No Are you DNR?: No Advance Directives: No Advance Directives Information Provided: Yes Poor oral hygiene: No Meds Allergies Allergy/AdvReac Type Severity Reaction Status Date / Time tramadol (TRAMADOL) Allergy Unknown HIVES Verified 04/16/25 07:31 Home Medications ?Medication ?Instructions ?Recorded ?Confirmed ?Last Taken ?Type aspirin 81 mg tablet,delayed 81 mg PO DAILY 08/13/22 04/16/25 01/10/23 History release rosuvastatin 10 mg tablet 10 mg PO BEDTIME 08/13/22 04/16/25 Unknown History Exam Airway Mallampati Class: II TM Dist: >3cm Neck ROM: Full Heart: rrr Lungs: cta Assessment and Plan Assessment Anesthesia Assessment: Anesthesia Plan Discussed Final Anesthetic Review NPO: Yes ASA Class: III Final Preanesthetic Review: No Changes in Pt Med Stat, Meds/Allgs Chart Reviewed, Consent Obtained/Reviewed and Anes Risks/Benef Reviewed Patient Risk: Intermediate Procedure Risk: Low Anesthetic Plan Anesthetic Plan: GA Disposition: Standard PACU
[2025-04-16] VITALS (7 sets, daily range): BP systolic 123–159; BP diastolic 64–81; PULSE 64–74; RESP 16–18; TEMP 36.3–36.7; O2SAT 97–100; BMI 26.2
[2025-04-16] MEDS: Lactated Ringers 1,000 ML 100 ML IVCONT (07:27)
--- NOTE | 2025-04-16 08:53 | P.HPSUR_ITS ---
Pre-Procedural Eval Section A - 24 Hr Update-Section A only Date of Service: 04/16/25 The patient is an INPATIENT: No Changes since office visit: No Cold of Flu in the past 2 weeks, No New Medical Problems, No Changes in Medication and No Patient answered all questions The patient has been examined within 24 hours of the surgical procedure. The History & Physical has been completed within 30 days and I have reviewed it.: Yes Section B - Complete if H&P > 30 days Chief Complaint: Elevated prostate specific antigen [PSA] Details of Present Illness: Perineal targeted prostate saturation biopsy Relevant Social History: None Present Medications: see Short Stay Collaborative assessment Medical History: No relevant PMH History of Previous Operations: Relevant previous surgery/procedure and date(s) Allergies: Allergies Allergy/AdvReac Type Severity Reaction Status Date / Time tramadol (TRAMADOL) Allergy Unknown HIVES Verified 04/16/25 07:31 Review of Systems Sugical H&P ROS: Negative: Constitution, Cardiovascular, Respiratory, Neurological, Psychiatric, Hem-Onc, Allergic/Immunologic, Gastrointestinal, Genitourinary, Musculoskeletal, Integumentary, Endocrine and Eyes/Ears/Nose/Th roat Exam Surgical H&P Exam: Normal: HEENT, Normal: Heart, Normal: Lungs, Normal: Extremities, Normal: Abdomen, Normal: Skin and Normal: Neurological Plan Diagnosis/Plan: Unchanged I have reviewed the history and physical and performed a pertinent physical examination on my patient. No changes have occurred unless specified. Time Spent With Patient Time: Total time managing care of this patient today ____ minutes.
--- NOTE | 2025-04-16 10:04 | W.PM.OPN ---
Operative Note Operative Note Date of Service: 04/16/25 Narrative: Preoperative diagnosis: Prostate Cancer Postoperative diagnosis: Prostate Cancer Procedure: 1. transrectal ultrasound-guided pudendal nerve block 2. MRI-US fusion image conformation, registration and 3D model creation performed 3. transperineal ultrasound-guided prostate biopsy 12 core including targets Surgeon: Dr. Quintin Real Anesthetic: Sedation plus local Indications for procedure: Prostate Cancer - known low-grade, low volume prostate cancer - MRI with 2 areas of interest 35 g, 5 mm and 4 mm areas left and right peripheral zone Procedure: After informed consent was verified, the patient was brought into the procedure area. Patient identity confirmed. Perioperative antibiotics confirmed. Safety pause time out performed. Anesthesia performed per protocol. Scrotum taped out of operative area. Iodine prep used. Perineal injection of local anesthetic. Digital guided prostate pudendal nerve block performed with 10 cc of 1% lidocaine. 5cc each side. Combination 10cc iodine with 50cc gel was mixed and placed in the rectum. Ultrasound probe was placed per rectum. Ultrasound probe stabilized on a prostate stepper with attached grid. [employer] software and hardware platform was used for US image acquisition, US 3D model creation and MRI-US fusion image overlay. Ultrasound placement was made with external grid calibration for height and prostate diameter in both the transverse and longitudinal planes. Prostate was aligned midline and reviewed for transverse and sagital positioning. The bottom of the prostate was aligned with the 1.0 horizontal positioning on the guidance grid. Grid A-C covering right prostate and c-F covering left prostate. Numbers 1.0-2.5 covering posterior prostate and 2.5-4.0 covering anterior prostate. Once grid calibration was confirmed prostate ultrasound data acquisition was performed with ultrasound sweeping in a transverse fashion. Images were acquired moving from prostate base to apex. This was performed in an even fashion with approx 0.5cm extra length at base and apex. The US images were then registered to create 3D model boundaries. [place] markers were applied to ultrasound images in transverse and longitudinal fashion. [place] and base were marked first followed by conformational boundaries. A three dimensional ultrasound model was created using [employer] software. The model was reviewed against acquired US images and alignment performed. The planned needle targeting, based on prior acquisition of MRI imaging, was overlaid on the ultrasound 3D images and targets confirmed through ultrasound review. Adjustments were then made between real time and projected model targeting locations. Based on pre-planning evaluation 12 targets had been identified. These included 2 targets of the PI-RADS 4 - 5mm and 4mm identified on MRI. Biopsies were performed moving from far left lateral inferior to far right lateral inferior. Non-target biopsies were distributed evenly between left and right prostate lobes. Biopsy needle location was confirmed in real time with longitudinal US prior to biopsy needle firing. Cognitive adjustments to preplanned positions were made as necessary to ensure samples were taken from planned prostate areas. He tolerated the procedure well, and upon completion was transferred to stable condition in the PACU. Printed instructions regarding antibiotic use and common side effects such as low-grade temperature, potential infection and bleeding were given Pathology: 12 core prostate biopsy CPT 85065 Modifier 22 for complexity of procedure execution (Perineal prostate biopsy) CPT code 45456: Transrectal ultrasound; this is a diagnostic test for evaluation of the prostate and surrounding structures, looking for abnormalities or suspicious areas worrisome for cancer CPT code 41665: Ultrasonic guidance for needle placement (eg, biopsy, aspiration, injection, localization device), imaging supervision and interpretation CPT 38191: 3D rendering with interpretation and reporting of computed tomography (CT), MRI, ultrasound, or other tomographic modality with image postprocessing under concurrent supervision; not requiring image postprocessing on an independent workstation
== END 2025-04-16 11:40 | disposition home or self-care (01) ==
PROVIDERS: PCP Family Medicine; Visit Provider Urology
PROC: (CPT 55700; principal; 2025-04-16 08:40)
DX: C61 Malignant neoplasm of prostate (principal); N52.01 Erectile dysfunction due to arterial insufficiency; R97.20 Elevated prostate specific antigen [PSA]; N40.1 Benign prostatic hyperplasia with lower urinary tract symptoms; N13.8 Other obstructive and reflux uropathy; R39.14 Feeling of incomplete bladder emptying; R39.12 Poor urinary stream; E78.5 Hyperlipidemia, unspecified; G47.30 Sleep apnea, unspecified; Z79.899 Other long term (current) drug therapy; Z79.82 Long term (current) use of aspirin; Z88.8 Allergy status to other drugs, medicaments and biological substances; Z98.890 Other specified postprocedural states
CPT/HCPCS: 55706; 88305; 88344; J0616; J2003; J2704; J3010

== ENCOUNTER → 2025-04-16 05:46 | Outpatient (BNV) | payer OTHER, SELFPAY | PROVIDERS: PCP Family Medicine; Visit Provider Urology | DX: C61 Malignant neoplasm of prostate (principal) | CPT/HCPCS: 55706; 76872; 76942 ==

== ENCOUNTER 2025-05-02 13:12 | Outpatient (AMB) | payer OTHER, SELFPAY ==
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
--- OUTSIDE RECORDS SUMMARY | 2025-05-02 10:21 | XMS_ITS | Continuity of Care Document ---
Author Name [facility] Organization [facility] Care Team Providers Care Clinical Dermatologist Name Role Phone DOD-[place] Unavailable Unavailable Problems Combined list of problems from Department of Defense and Veterans Affairs facilities. It does not include entries that were removed or entered in error. Problem Status Onset Date Problem Type Date of Resolution Comments Source Chronic Post-Traumatic Stress Disorder ([facility] [id number]) Active 981 Condition [facility] [place] VILLAVICENCIO Comment: On clopidogrel x 1 year YAM[facility] Hypercholesterolemia Active Condition V [facility] [...] annually for 5 yrs due to size YAMPA Outside Providers Inactive Condition 07/06/2023 A pr 2021 Entered By: KEON VILLAVICENCIO Comment: [place] [facility]. P: [phone], F: [phone] YAM[place] Diagnosis: ICD-10-CM F43.12 Post-traumatic stress disorder, chronic Active Diagnosis [facility] Diagnosis: ICD-10-CM G47.00 Insomnia, unspecified Active Diagnosis [facility] Diagnosis: ICD-10-CM E78.5 Hyperlipidemia, unspecified Active Diagnosis [facility] Diagnosis: ICD-10-CM U07.1 COVID-19 [facility] Diagnosis: ICD-10-CM G47.30 Sleep apnea, unspecified Active Diagnosis [facility] [place] [facility] Diagnosis: ICD-10-CM F63.81 Intermittent explosive disorder Active Diagnosis [facility] Diagnosis: ICD-10-CM Z71.89 Other specified counseling Active Diagnosis [facility] Medications Combined list of outpatient medications from Department of Defense and Veterans Affairs facilities.Medications provided include 1) outpatient medications from the last 15 months, and 2) patient-reported medications. Medication Details Route Status Patient Instructions Prescription Expires Prescription Number Last Dispense Date Ordering Provider Order Date Order Qty Source FINASTERIDE 5MG TAB TAKE ONE TABLET BY MOUTH ONCE DAILY FOR ENLARGED PROSTATE ORAL 04/27/2025 [id number] ROSE MARIE VILLAVICENCIO SA 2023 90 [facility] GOV-NIRMATR EVELYN 150MG X 2/RITONAVIR 100MG X 1 TAB,PACK,3 TAKE 2 TABLETS NIRMATRE LVIR AND 1 TABLET RITONAVI R BY MOUTH TWICE DAILY FOR COVID-19 ORAL 01/07/2025 [id number] MEREDITH LEAL NP 2024 5 [facility] [employer] [facility] [facility] LORATADINE 10MG TAB TAKE ONE TABLET BY MOUTH ONCE DAILY NEEDED FOR ALLERGY ORAL 01/07/2025 [id number] 5 MEREDITH LEAL NP 2024 30 [facility] [employer] [facility] [facility] QUETIAPINE FUMARATE 100MG TAB TAKE ONE TABLET BY MOUTH AT BEDTIME NEEDED FOR INSOMNIA AND MOOD ORAL ACTIVE 04/20/2026 [id number] 5 VIK SIMMONS 2024 90 [facility] IELD QUETIAPINE FUMARATE 100MG TAB TAKE ONE TABLET BY MOUTH AT BEDTIME NEEDED FOR INSOMNIA AND MOOD ORAL DISCONT INUED 01/18/2026 [id number] 5 VIK SIMMONS 2024 30 [place] QUETIAPINE FUMARATE 25MG TAB TAKE ONE TABLET BY MOUTH AT BEDTIME FOR INSOMNIA AND MOOD ORAL 12/29/2024 [id number] 5 VIK SIMMONS 2024 30 [place] ROSUVASTATI N CA 20MG TAB TAKE ONE-HALF TABLET BY MOUTH AT BEDTIME FOR CHOLESTE ROL ORAL ACTIVE 10/24/2025 [id number] ROSE MARIE VILLAVICENCIO SA 2024 45 [facility] IELD ROSUVASTATI N CA 20MG TAB TAKE ONE-HALF TABLET BY MOUTH AT BEDTIME FOR CHOLESTE ROL ORAL DISCONT INUED 03/17/2025 [id number] ROSE MARIE VILLAVICENCIO SA 2023 45 [facility] IELD TADALAFIL 5MG TAB TAKE ONE TABLET BY MOUTH ONCE DAILY NEEDED ORAL ACTIVE ROSE MARIE VILLAVICENCIO SA 2022 [facility] IELD TRAZODONE HCL 100MG TAB TAKE ONE-HALF TABLET BY MOUTH AT BEDTIME NEEDED FOR INSOMNIA ASSOCIAT ED WITH DEPRESSI ON MAY TAKE ANOTHER ONE-HALF OF A TABLET IF THE FIRST HALF IS NOT EFFECTIV E ORAL DISCONT INUED BY LD R 11/08/2025 [id number] 5 VIK SIMMONS 2024 90 [facility] IELD Allergies, Adverse Reactions, Alerts Combined list of allergies from Department of Defense and Veterans Affairs facilities. It does not include entries that were removed or entered in error. Substance Category Reaction Severity Reaction type Status Date Reported Comments Source TRAMADOL Propensity to adverse reactions to drug (finding) active 7 [facility] Immunizations Combined list of available immunizations from the Department of Defense and Veterans Affairs facilities. Immunization Series Date Given Administered By Site Reaction Lot Number CVX Code Drug Product Support Specialist Status Comments Source INFLUENZA, INJECTABLE, QUADRIVALENT, PRESERVATIVE FREE 2022 MENG TRIVEDI ON M LEFT DELTO ID [id number] A 150 complet ed Booster for Series, [place], [facility] IELD INFLUENZA, INJECTABLE, QUADRIVALENT, PRESERVATIVE FREE 2021 150 complet ed [facility] IELD INFLUENZA, UNSPECIFIED FORMULATION 2019 88 complet ed [facility] INFLUENZA, INJECTABLE, QUADRIVALENT, PRESERVATIVE FREE 2018 150 complet ed Site: Left Deltoid [facility] INFLUENZA, INJECTABLE, QUADRIVALENT, PRESERVATIVE FREE 2017 150 complet ed 02, Partner: [facility]. Administe red by: [facility] Clinician (NPI=Not Provided) . Partner 4 Lot#: [id number] Mfr: [employer]i P[employer] [facility] INFLUENZA, SEASONAL, INJECTABLE 12/15/ 2017 141 complet ed Site: Right Deltoid [place] TDAP 2016 115 complet ed Site: Right Deltoid [place] Results Combined list of recent chemistry, hematology and other laboratory results from Department of Defense and Veterans Affairs, ranging from 15 months to all on record, depending upon the facility. Order Name Results Value Reference Range Date Interpretation Specimen Comments Source TSH THYROTROPIN [UNITS/VOLU ME] IN SERUM OR PLASMA BY DETECTION LIMIT <= 0.005 MIU/L 1.53 u[IU]/ mL 0.35 - 4.94 02/13 Specimen Type: SERUM No comment entered. Ordering Provider: KEON VILLAVICENCIO Report Released Date/Time: Aug 17, 2024 05:42 AM Reporting Lab: [address] [address] Performing Lab: [address] [address] [facility] GLUCOSE FASTING GLUCOSE [MASS/VOLUM E] IN SERUM OR PLASMA 114 mg/dL 65 - 100 02/13 H Specimen Type: SERUM No comment entered. Ordering Provider: KEON VILLAVICENCIO Report Released Date/Time: Aug 17, 2024 05:42 AM Reporting Lab: [facility] [address] [facility] [address] Performing Lab: [address] [address] [facility] LIPID PANEL FASTING CHOLESTEROL [MASS/VOLUM E] IN SERUM OR PLASMA 167 mg/dL 02/13 Specimen Type: SERUM No comment entered. Ordering Provider: KEON VILLAVICENCIO Report Released Date/Time: Aug 17, 2024 05:42 AM Reporting Lab: [facility] [address] [facility] [address] Performing Lab: [address] [address] [facility] LIPID PANEL FASTING TRIGLYCERID E [MASS/VOLUM E] IN SERUM OR PLASMA 67 mg/dL 0 - 150 02/13 Specimen Type: SERUM No comment entered. Ordering Provider: KEON VILLAVICENCIO Report Released Date/Time: Aug 17, 2024 05:42 AM Reporting Lab: [facility] [place] [facility] [address] [facility] [address] Performing Lab: [facility] [place] [facility] [address] [facility] [address] [facility] [place] [facility] LIPID PANEL FASTING CHOLESTEROL IN LDL [MASS/VOLUM E] IN SERUM OR PLASMA BY CALCULATION 77 mg/dL 0 - 129 02/13 Specimen Type: SERUM No comment entered. Ordering Provider: KEON VILLAVICENCIO Report Released Date/Time: Aug 17, 2024 05:42 AM Reporting Lab: [facility] [place] [facility] [address] [facility] [address] Performing Lab: [facility] [place] [facility] [address] [facility] [address] [place] [facility] [facility] LIPID PANEL FASTING CHOLESTEROL .TOTAL/CHOL ESTEROL IN HDL [MASS RATIO] IN SERUM OR PLASMA 2.2 02/13 Specimen Type: SERUM No comment entered. Ordering Provider: KEON VILLAVICENCIO Report Released Date/Time: Aug 17, 2024 05:42 AM Reporting Lab: [facility] [place] [facility] [address] [facility] [address] Performing Lab: [facility] [place] [facility] [address] [facility] [address] [place] [facility] [facility] LIPID PANEL FASTING CHOLESTEROL IN HDL [MASS/VOLUM E] IN SERUM OR PLASMA 77 mg/dL 40 02/13 Specimen Type: SERUM No comment entered. Ordering Provider: KEON VILLAVICENCIO Report Released Date/Time: Aug 17, 2024 05:42 AM Reporting Lab: [facility] [place] [facility] [address] [facility] [address] Performing Lab: [facility] [place] [facility] [address] [facility] [address] [place] [facility] LIVER FUNCTION PROTEIN [MASS/VOLUM E] IN SERUM OR PLASMA 7.5 g/dL 6.4 - 8.3 02/13 Specimen Type: SERUM No comment entered. Ordering Provider: KEON VILLAVICENCIO Report Released Date/Time: Aug 17, 2024 05:42 AM Reporting Lab: [place] [facility] [facility] [address] [facility] [address] Performing Lab: [facility] [address] [facility] [address] [facility] [place] [facility] LIVER FUNCTION ALBUMIN [MASS/VOLUM E] IN SERUM OR PLASMA BY BROMOCRESOL PURPLE (BCP) DYE BINDING METHOD 4.7 g/dL 3.2 - 4.6 02/13 H Specimen Type: SERUM No comment entered. Ordering Provider: KEON VILLAVICENCIO Report Released Date/Time: Aug 17, 2024 05:42 AM Reporting Lab: [facility] [address] [address] Performing Lab: [facility] [address] [address] [facility] LIVER FUNCTION ALKALINE PHOSPHATASE [ENZYMATIC ACTIVITY/VO LUME] IN SERUM OR PLASMA 55 U/L 40 - 150 02/13 Specimen Type: SERUM No comment entered. Ordering Provider: KEON VILLAVICENCIO Report Released Date/Time: Aug 17, 2024 05:42 AM Reporting Lab: [facility] [address] [address] Performing Lab: [place] [facility] [address] [address] [facility] LIVER FUNCTION ASPARTATE AMINOTRANSF ERASE [ENZYMATIC ACTIVITY/VO LUME] IN SERUM OR PLASMA BY WITH P-5'-P 28 U/L 5 - 34 02/13 Specimen Type: SERUM No comment entered. Ordering Provider: KEON VILLAVICENCIO Report Released Date/Time: Aug 17, 2024 05:42 AM Reporting Lab: [facility] [address] [address] Performing Lab: [place] [facility] [address] [facility] [address] [place] [facility] [facility] LIVER FUNCTION ALANINE AMINOTRANSF ERASE [ENZYMATIC ACTIVITY/VO LUME] IN SERUM OR PLASMA BY WITH P-5'-P 22 U/L 0 - 55 02/13 Specimen Type: SERUM No comment entered. Ordering Provider: KEON VILLAVICENCIO Report Released Date/Time: Aug 17, 2024 05:42 AM Reporting Lab: [place] [facility] [address] [facility] [address] Performing Lab: [place] [facility] [address] [address] [facility] LIVER FUNCTION BILIRUBIN.T OTAL [MASS/VOLUM E] IN SERUM OR PLASMA 0.5 mg/dL 0.2 - 1.2 02/13 Specimen Type: SERUM No comment entered. Ordering Provider: KEON VILLAVICENCIO Report Released Date/Time: Aug 17, 2024 05:42 AM Reporting Lab: [place] [facility] [address] Performing Lab: [place] [facility] [facility] [address] [facility] HEMOGLOBI N A1C PANEL HEMOGLOBIN A1C/HEMOGLO BIN.TOTAL IN BLOOD BY IFCC PROTOCOL 5.6 4.0 - 5.6 02/13 Specimen Type: BLOOD Comment: Values obtained from [...] Aug 17, 2024 05:42 AM Reporting Lab: [place] [facility] [facility] [address] Performing Lab: [facility] [address] [facility] THYROID T4 FREE(FT4) (WROX) THYROXINE (T4) FREE [MASS/VOLUM E] IN SERUM OR PLASMA 1.01 ng/dL 0.6 - 1.6 07/17 Specimen Type: SERUM No comment entered. Ordering Provider: KEON VILLAVICENCIO Report Released Date/Time: January 26, 2024 06:12 AM Reporting Lab: [facility] [address] [facility] [address] Performing Lab: [facility] [address] [facility] [address] [facility] TSH THYROTROPIN [UNITS/VOLU ME] IN SERUM OR PLASMA 0.92 u[IU]/ mL 0.35 - 5.00 07/17 Specimen Type: SERUM No comment entered. Ordering Provider: KEON VILLAVICENCIO Report Released Date/Time: January 26, 2024 06:12 AM Reporting Lab: [address] [address] Performing Lab: [facility] [address] [address] [facility] HEMOGLOBI N A1C PANEL HEMOGLOBIN A1C/HEMOGLO BIN.TOTAL [...] January 26, 2024 06:12 AM Reporting Lab: [facility] [address] [facility] [address] Performing Lab: [address] [address] [facility] LIPID PANEL FASTING CHOLESTEROL [MASS/VOLUM E] IN SERUM OR PLASMA 165 mg/dL 07/17 Specimen Type: SERUM No comment entered. Ordering Provider: KEON VILLAVICENCIO Report Released Date/Time: January 26, 2024 06:12 AM Reporting Lab: [facility] [place] [facility] [address] [facility] [address] Performing Lab: [place] [facility] [facility] [address] [facility] [address] [place] [facility] [facility] LIPID PANEL FASTING TRIGLYCERID E [MASS/VOLUM E] IN SERUM OR PLASMA 54 mg/dL 0 - 150 07/17 Specimen Type: SERUM No comment entered. Ordering Provider: KEON VILLAVICENCIO Report Released Date/Time: January 26, 2024 06:12 AM Reporting Lab: [place] [facility] [facility] [address] [facility] [address] Performing Lab: [place] [facility] [address] [address] [facility]TR[facility] [place] [facility] LIPID PANEL FASTING CHOLESTEROL IN LDL [MASS/VOLUM E] IN SERUM OR PLASMA BY CALCULATION 91 mg/dL 0 - 129 07/17 Specimen Type: SERUM No comment entered. Ordering Provider: KEON VILLAVICENCIO Report Released Date/Time: January 26, 2024 06:12 AM Reporting Lab: [place] [facility] [place] [facility] [address] [facility] [address] Performing Lab: [place] [facility] [place] [address] [address] [facility] [place] [facility] LIPID PANEL FASTING CHOLESTEROL .TOTAL/CHOL ESTEROL IN HDL [MASS RATIO] IN SERUM OR PLASMA 2.6 07/17 Specimen Type: SERUM No comment entered. Ordering Provider: KEON VILLAVICENCIO Report Released Date/Time: January 26, 2024 06:12 AM Reporting Lab: [place] [facility] [facility] [address] [facility] [address] Performing Lab: [place] [facility] [address] [address] [facility] [place] [facility] LIPID PANEL FASTING CHOLESTEROL IN HDL [MASS/VOLUM E] IN SERUM OR PLASMA 63 mg/dL 40 - 60 07/17 H Specimen Type: SERUM No comment entered. Ordering Provider: KEON VILLAVICENCIO Report Released Date/Time: January 26, 2024 06:12 AM Reporting Lab: [place] [facility] [place] [facility] [address] [facility] [address] Performing Lab: [place] [facility] [place] [facility] [address] [facility] [address] [place] [facility] LIVER FUNCTION PROTEIN [MASS/VOLUM E] IN SERUM OR PLASMA 6.6 g/dL 6.0 - 8.3 07/17 Specimen Type: SERUM No comment entered. Ordering Provider: KEON VILLAVICENCIO Report Released Date/Time: January 26, 2024 06:12 AM Reporting Lab: [place] [facility] [address] [address] Performing Lab: [place] [facility] [place] [address] [address] [place] [facility] [facility] LIVER FUNCTION ALBUMIN [MASS/VOLUM E] IN SERUM OR PLASMA 3.7 g/dL 3.5 - 5.0 07/17 Specimen Type: SERUM No comment entered. Ordering Provider: KEON VILLAVICENCIO Report Released Date/Time: January 26, 2024 06:12 AM Reporting Lab: [place] [facility] [address] [address] Performing Lab: [place] [facility] [facility] [address] [facility] [address] [place] [facility] [facility] LIVER FUNCTION ALKALINE PHOSPHATASE [ENZYMATIC ACTIVITY/VO LUME] IN SERUM OR PLASMA 52 U/L 40 - 150 07/17 Specimen Type: SERUM No comment entered. Ordering Provider: KEON VILLAVICENCIO Report Released Date/Time: January 26, 2024 06:12 AM Reporting Lab: [place] [facility] [address] [address] Performing Lab: [place] [facility] [address] [address] [place] [facility] LIVER FUNCTION ASPARTATE AMINOTRANSF ERASE [ENZYMATIC ACTIVITY/VO LUME] IN SERUM OR PLASMA 18 U/L 5 - 34 07/17 Specimen Type: SERUM No comment entered. Ordering Provider: KEON VILLAVICENCIO Report Released Date/Time: January 26, 2024 06:12 AM Reporting Lab: [facility] [place] [facility] [address] [facility] [address] Performing Lab: [facility] [place] [facility] [address] [facility] [address] [place] [facility] LIVER FUNCTION ALANINE AMINOTRANSF ERASE [ENZYMATIC ACTIVITY/VO LUME] IN SERUM OR PLASMA 17 U/L 07/17 Specimen Type: SERUM No comment entered. Ordering Provider: KEON VILLAVICENCIO Report Released Date/Time: January 26, 2024 06:12 AM Reporting Lab: [facility] [place] [facility] [address] [facility] [address] Performing Lab: [facility] [place] [facility] [address] [facility] [address] [place] [facility] LIVER FUNCTION BILIRUBIN.T OTAL [MASS/VOLUM E] IN SERUM OR PLASMA 0.3 mg/dL 0.2 - 1.2 07/17 Specimen Type: SERUM No comment entered. Ordering Provider: KEON VILLAVICENCIO Report Released Date/Time: January 26, 2024 06:12 AM Reporting Lab: [facility] [place] [facility] [address] [facility] [address] Performing Lab: [facility] [place] [address] [address] [place] [facility] Vital Signs Combined list of inpatient and outpatient Vital Signs from Department of Defense and Veterans Affairs, ranging from 12 months to all on record, depending upon the facility. Vital Sign Value Date Comments Source SYSTOLIC BLOOD PRESSURE 139 02/15/20 25 09:22:01 [facility] [place] [facility] DIASTOLIC BLOOD PRESSURE 76 025 09:22:01 [facility] [place] [facility] PULSE OXIMETRY 99 % 02/14/2025 09:22:01 [facility] [place] WEIGHT 172 02/14/2025 09:22:01 [facility] [place] BMI 26 kg/m2 02/14/2025 09:22:01 [facility] PAIN 0 02/14/2025 09:22:01 [facility] HEIGHT 68 02/14/2025 09:22:01 [facility] TEMPERATURE 97.8 02/14/2025 09:22:01 [facility] [place] PULSE 65 02/14/2025 09:22:01 [facility] RESPIRATION 16 02/14/2025 09:22:01 [facility] [place] SYSTOLIC BLOOD PRESSURE 133 08/17/20 24 08:35:24 [...] 08/17/2024 08:35:24 [facility] [place] Encounters Combined [...] Disposition Source [facility] [place] [facility] Outpatient Encounter [id number] 11/03 [facility] [place]/OP EST DECEMBER X REQ PHY/QHP [id number] Diagnos is: ICD-10- CM Z71.89 Other specifi ed christian counselor ing MADELINE DICKERSON 11/23 [place] [facility] Outpatient Encounter [id number] 11/24 [facility] [place] [facility] [place] [facility] Outpatient Encounter [id number] 11/24 [facility] [place] [facility] [place] CASE MANAGEMENT [id number] Diagnos is: ICD-10- CM G47.00 Insomni a, unspeci fied IRIS,W OMER 11/30 [place] PSYCH DIAGNOSTIC EVALUATION [id number] Diagnos is: ICD-10- CM F63.81 Intermi ttent explosi ve disorde r LISA GRAY 11/30 [place]NAG[place] [id number] Diagnos is: ICD-10- CM G47.00 Insomni a, unspeci fied IRIS,W OMER 12/07 [place] W PT 60 MINUTES [id number] Diagnos is: ICD-10- CM F63.81 Intermi ttent explosi ve disorde r LISA GRAY 12/07 [place] W PT 60 MINUTES [id number] Diagnos is: ICD-10- CM F43.12 Post-tr aumatic stress disorde r, chronic LISA GRAYIE 01/04 [facility] En[facility] [id number] 01/09 [facility] En[facility] [id number] 01/13 [facility] [place] [facility] [place] PSY[place] W PT 45 MINUTES [id number] Diagnos is: ICD-10- CM F43.12 Post-tr aumatic stress disorde r, chronic [facility] LOW 20 MIN [id number] Diagnos is: ICD-10- CM E78.5 Hyperli pidemia , unspeci fied ROSEANNA [facility]ICENCIO [facility] [id number] 01/25 [facility] [id number] LISA GRAY YOVANNY 01/26 [facility] En[facility] [id number] 02/03 [facility] [place] LD PSYTX W PT 60 MINUTES [id number] Diagnos is: ICD-10- CM F43.12 Post-tr aumatic stress disorde r, chronic LISA GRAY 02/08 [facility] & INTERPJ DATA EA 30 D [id number] Diagnos is: ICD-10- CM G47.30 Sleep apnea, unspeci fied ST AMEMANI,ESTEBAN E P 02/08 [facility] [place] PSYTX W PT 60 MINUTES [id number] Diagnos is: ICD-10- CM F43.12 Post-tr aumatic stress disorde r, chronic LISA GRAY YOVANNY 03/08 [place] [facility] En[facility] [id number] 03/15 [facility] [id number] [facility] [place] PSY[place] W PT 60 MINUTES [id number] Diagnos is: ICD-10- CM F43.12 Post-tr aumatic stress disorde r, chronic LISA GRAY YOVANNY 04/12 [place] [facility] En[facility] [id number] 04/26 [facility] En[facility] [id number] 04/26 [facility] [place] [facility] W PT 60 MINUTES [id number] Diagnos is: ICD-10- CM F43.12 Post-tr aumatic stress disorde r, chronic LISA GRAY YOVANNY 05/03 [place] [facility] Out[facility] Encounter [id number] 05/24 [facility] [place] W PT 60 MINUTES [id number] Diagnos is: ICD-10- CM F43.12 Post-tr aumatic stress disorde r, chronic LISA GRAY YOVANNY 06/21 [place] [facility] QNHP OL DIG ASSMT&MGMT 5-10 [id number] 1. Diagnos is: ICD-10- CM G47.00 Insomni a, unspeci DAVION James 06/22 [facility] Out[facility] Encounter [id number] 1.07/11 [facility] [place] W PT 60 MINUTES [id number] Diagnos is: ICD-10- CM F43.12 Post-tr aumatic stress disorde r, chronic LISA GRAY 07/12 [facility] [place] [facility] Encounter [id number] 1.07/13 [facility] En[facility] [id number] 1.07/24 [facility] Encounter [id number] 1.07/25 [facility] Out[facility] Encounter [id number] 1.07/31 [facility] [place] W PT 60 MINUTES [id number] Diagnos is: ICD-10- CM F43.12 Post-tr aumatic stress disorde r, chronic LISA GRAY 07/31 [facility] [place] [facility] Out[facility] Encounter [id number] 08/01 [facility] Encounter [id number] 1.08/02 [facility] Outpatient [facility]counter [id number] 1.08/11 [facility] [place] O/P EST MOD 30 MIN [id number] Diagnos is: ICD-10- CM E78.5 Hyperli pidemia , unspeci fied ROSEANNA VILLAVICENCIO HERI 08/17 [facility] [place] PSY[place] W PT 60 MINUTES [id number] Diagnos is: ICD-10- CM F43.12 Post-tr aumatic stress disorde r, chronic LISA GRAY YOVANNY 09/14 [place] [facility] Outpatient Encounter [id number] 09/27 [facility] [place] W PT 45 MINUTES [id number] Diagnos is: ICD-10- CM F43.12 Post-tr aumatic stress disorde r, chronic LISA GRAY YOVANNY 10/09 [facility] [place] [facility] Outpatient Encounter [id number] [facility] Out[facility] Encounter [id number] 10/20 [facility] [place] W PT 30 MINUTES [id number] Diagnos is: ICD-10- CM F43.12 Post-tr aumatic stress disorde r, chronic LISA GRAY YOVANNY 11/07 [facility] [place] O/P NEW MOD 45 MIN [id number] Diagnos is: ICD-10- CM G47.00 Insomni a, unspeci fied Lizett SIMMONS OMER 11/07 [place] W PT 45 MINUTES [id number] Diagnos is: ICD-10- CM F43.12 Post-tr aumatic stress disorde r, chronic LISA GRAY YOVANNY 11/29 [place] O/P EST MOD 30 MIN [id number] Diagnos is: ICD-10- CM G47.00 Insomni a, unspeci fied IRIS,W OMER 11/29 [place] [facility] Out[facility] Encounter [id number] 1.11/30 [facility] Out[facility] Encounter [id number] [facility] Out[facility] Encounter [id number] [facility] SYNCH AUDIO-ONLY EST LOW 20 [id number] Diagnos is: ICD-10- CM U07.1 COVID-1 9 LEAL,MEREDITH [employer]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 12/08 [facility] [place] NQHP OL DIG ASSMT&MGMT 5-10 [id number] Diagnos is: ICD-10- CM U07.1 COVID-1 9 MALCOM,MARIELA IE 12/08 [place] W PT 45 MINUTES [id number] Diagnos is: ICD-10- CM F43.12 Post-tr aumatic stress disorde r, chronic LISA GRAY YOVANNY 12/20 [place] [facility] Outpatient Encounter [id number] 1.12/26 [facility] [place] PSY[place] W PT 60 MINUTES [id number] Diagnos is: ICD-10- CM F43.12 Post-tr aumatic stress disorde r, chronic LISA GRAY YOVANNY 01/17 [place] O/P EST MOD 30 MIN [id number] Diagnos is: ICD-10- CM G47.00 Insomni a, unspeci fied IRIS,W OMER 01/17 [place] PSY[place] W PT 45 MINUTES [id number] 50 Diagnos is: ICD-10- CM F43.12 Post-tr aumatic stress disorde r, chronic LISA GRAY YOVANNY 02/07 [place] [facility] Outpatient Encounter [id number] 02/12 [facility] [place] O/P EST LOW 20 MIN [id number] 96 Diagnos is: ICD-10- CM E78.5 Hyperli pidemia , unspeci fied ROSEANNA VILLAVICENCIO A HERI 02/14 [place] [facility] Outpatient Encounter [id number] Gelacio TRIVEDI 02/23 [facility] [place] W PT 45 MINUTES [id number] Diagnos is: ICD-10- CM F43.12 Post-tr aumatic stress disorde r, chronic LISA GRAY YOVANNY 03/01 [place] [facility] Outpatient Encounter [id number] 03/11 [facility] [place] PSY[place] W PT 60 MINUTES [id number] Diagnos is: ICD-10- CM F43.12 Post-tr aumatic stress disorde r, chronic LISA GRAY YOVANNY 03/28 [facility] Outpatient Encounter [id number] 04/16 [facility] [place] O/P EST MOD 30 MIN [id number] 1BY. 00 Diagnos is: ICD-10- CM G47.00 Insomni a, unspeci fied IRIS,W OMER 04/19 [facility] PSYTX W PT 60 MINUTES [id number] 1BY. 18 Diagnos is: ICD-10- CM F43.12 Post-tr aumatic stress disorde r, chronic LISA GRAY YOVANNY 04/25 [facility] Social History Combined list of available smoking, tobacco, and other social history from Department of Defense and Veterans Affairs facilities. Social History Type Response Date Comment Source Tobacco smoking status NMIS [place]-TOBACCO NEVER USED 07/06/2023 [facility] History of tobacco use [place]-TOBACCO NEVER USED 07/28/2022 [facility] History of tobacco use [place]-TOBACCO NEVER USED 07/15/2021 [facility] History of tobacco use [place]-TOBACCO NEVER USED 07/18/2020 [facility] [facility] History of tobacco use [place]-TOBACCO NEVER USED 10/05/2018 [facility] History of tobacco use QUIT TOBACCO USE > 7 YEARS AGO 08/13/2017 quit cigarettes after the but does smoke marijuana [facility] Plan of Care List of future care activities from Department of Veterans Affairs facilities. Additional future care activities may be listed in the Assessment and Plan section. Date/Time Care Activity Care Activity Detail Facili ty 05/23/2025 AMBULATORY - PSYCHIATRY AMBULATORY - PSYC [facility] Advance Directives List of completed, amended, or rescinded Advance Directives on record at Department of Veterans Affairs facilities. An actual copy of the Directive is not included. Date Advance Directive Provider Source 10/28/2017 [facility]
--- NOTE | 2025-05-02 13:12 | MHC.OFFVIS ---
Intake Visit Reasons: Prostate biopsy results Intake Note: Patient is present for Prostate Bx Results Urology Medication:FINASTERIDE,TADALAFIL Antibiotic Allergy:NONE Blood Thinner:none Spd Tech Required: No Accompanied by: Self / Same As Patient Allergies tramadol (TRAMADOL) Allergy (Unknown, Verified 05/02/25 13:13) HIVES HPI Comments Details: Roberto PARKER is a very pleasant male. He is a patient of Dr. Dan. He is seen for the following urologic conditions. - prostate cancer - erectile dysfunction Telemedicine Evaluation 15 min Consultation [employer] Delia Video Discussed results Cancer remains consistent Remain on finasteride Continue six-month follow-up Remains on daily tadalafil 5 mg for erections - mostly effective. Occasionally unable to get erection. PSA happened when he has fatigue. Discussed proper recovery in 48 hours prior. May use on demand as required. We will provide 10 mg to use on demand if he calls Prostate Cancer 04/2325 grade group 1, low volume Histologic type: Adenocarcinoma, acinar type Histologic grade: [place] score: 3+3=6 Grade group: 1 Tumor quantitation: Number cores positive: 2 Total number of cores: 12 % of tissue involved: 5% of all tissue examined Periprostatic fat inv.: Not identified Seminal vesicle inv.: Not identified Perineural inv.: Not identified LVI: Not identified 12/22 MRI showed 2 x 5 mm lesions PI-RADS 4 No progression volume of disease Prostate cancer 01/19 PSA 5.8 grade group 1, low volume pT1c, [address] Real 01/19 - 05/22 3.9, 09/22 3.6, 01/20 3.4, 08/22 3.8 MRI ultrasound fusion biopsy 01/19 - Grade group 1, low risk, low volume, pT1c, PSA at diagnosis 5.8, multiple prior negative biopsies Pathology single core positive Pancho 3 + 3 - (C) - right lateral Imaging - 01/17 MRI 36 g prostate, no suspicious signal abnormalities to suggest presence of clinically significant prostate cancer. Poorly defined 1.6 cm signal abnormality posterolateral on the right in the mid gland Lower Urinary Tract Symptoms: Discussed results Current visit is for further evaluation of, lower urinary tract symptoms, predominate obstructive symptoms - symptoms stable on finasteride Prostate Symptom Score 2/18 , Moderate (9-19), Bother 2. Symptoms include 2/18 , incomplete emptying, weak stream, nocturia (>2), and are progressing 09/17 , incomplete emptying, weak stream, and are stable. [facility] prior negative biopsies - 10/17 4.6, 03/16 5.2 started finasteride, 09/17 3.5, 11/17 4.6 15%, 01/18 5.8 Erectile dysfunction Responsive to Viagra 100 mg Improved response to daily tadalafil PFSH Medical History Arthritis HX: anticoagulation Sleep apnea Pericarditis Hypercholesterolemia BPH (benign prostatic hyperplasia) Anal fissure Hyperlipidemia Ejaculatory disorder Incomplete emptying of bladder Weak urinary stream Bladder neck obstruction Elevated PSA Surgical History Hx of prostate biopsy History of surgery History of bunionectomy History of tonsillectomy History of colonoscopy Family History Paternal Grandfather Prostate cancer Social History Are you a primary career technology teacher to a significant other at home: No Do you presently have visiting nurse or other home services: No Patient Tobacco Use Status: Never used Tobacco Review of Systems Const All systems reviewed & are unremarkable except as noted in HPI and below Reports no additional complaints Resp Reports no additional complaints GI Reports no additional complaints Reports as per HPI Musc Reports no additional complaints Physical Exam Telemedicine evaluation Appropriate responses Regular breathing rate and rhythm HEENT Head: Yes normal to inspection Ears: hearing grossly normal bilaterally Eyes General: appearance normal, both eyes and all related structures Neck Neck: Yes normal visual inspection Chest Chest palpation & inspection: normal inspection of the chest Resp Effort & Inspection: normal respiratory effort and able to speak in complete sentences Telehealth Telehealth Telehealth Platform: [employer] Location of provider rendering services: practice address Location of patient: address on file Patient Identification confirmed using: Name, : Yes Telehealth method: video Patient verbally consented to treatment: Yes Patient verbally consented to billing insurance company: Yes Patient informed of any privacy concerns related to visit: Yes Minutes spent on Phone/Video with Pt.: 15 Assessment & Plan Assessment & Plan (1) Prostate cancer: Code(s): C61 - Malignant neoplasm of prostate Category: Medical Plan Six-month follow-up PSA Orders: Orders PSA,Total (Free>4and<10) 6 Months C61 - Malignant neoplasm of prostate Medications: Refilled finasteride 5 mg PO DAILY 90 tabs 3RF 90 days R97.20 - Elevated prostate specific antigen [PSA] Patient Instructions: This note is constructed using voice recognition software. While every effort has been made to ensure accuracy jewelry designer errors may have been included. Imaging studies, laboratory and physical exam results were discussed and reviewed in detail. No major barriers to patient understanding were identified. An opportunity to ask questions regarding the treatment plan was provided. All questions were answered. The patient expressed understanding and agreement with the above treatment plan. The patient is aware they should contact our office by phone for worsening of their current condition or the appearance of new urologic symptoms. Compliance is encouraged with any medications and followup testing that is ordered. It is a privilege to participate in the urologic care of your patient. If you have any questions or concerns regarding treatment for the above conditions, or other urologic issues, please do not hesitate to contact me. The office telephone contact is [phone]. Sincerely, Dr Quintin Real MD, [facility] - Urology Compassionate Specialist Care for the Genitourinary System Coding Level of Care Code Tele Est Pt Level 3 (85171) Complex EM visit Add On G2211 Diagnoses Prostate cancer C61
--- OUTSIDE RECORDS SUMMARY | 2025-05-02 15:29 | XMS_ITS | Clinical Summary ---
Author Organization [facility] Address [address] [place] [address] Care Team Providers Care Catalog Specialist Name Role Phone Unavailable Primary Care Provider [...] Panel) 09/28/2023 Colorectal Cancer Screening: Colonoscopy 09/28/2023 HIV Screening 09/28/2023 Hepatitis C Screening 09/28/2023 Social Influencers of Health Screening 09/28/2023 COVID-19 Vaccine (1 - 2023-2 5 season) 2024 Depression Screening 08/30/2024 Influenza Vaccine (#1) 2025 RSV Immunization Adult Patie nts (1 [...]
== END 2025-05-02 14:16 | disposition home or self-care (01) ==
LOC: HO.HUSH 13:12
PROVIDERS: PCP Family Medicine; Visit Provider Urology
DX: C61 Malignant neoplasm of prostate (principal)
CPT/HCPCS: 99213; G2211

== ENCOUNTER 2025-08-27 11:45 | Outpatient (REF) | payer OTHER, SELFPAY ==
[2025-08-27 13:18] LABS: PSA,Total (Free>4and<10) 5.11 ng/mL (0.00-4.00)
--- OUTSIDE RECORDS SUMMARY | 2025-08-27 13:49 | XMS_ITS | Clinical Summary ---
Author Organization [facility] Address [address] [place] [address] Care Team Providers Care Lymphedema Therapist Name Role Phone Unavailable Primary Care Provider [...] on file Sexual Orientation Not on file Plan of Treatment Health Maintenance Due Date Last Done Comments Colorectal Cancer Screening: Colonoscopy 1962 DTaP,Tdap,and Td Vaccines (1 - Tdap) 1981 Pneumococcal Vaccine: 50+ Ye ars (1 of 1 - PCV) 2012 Zoster Vaccines (1 of 2) 2012 Cholesterol Screening (Lipid Panel) 09/28/2023 HIV Screening 09/28/2023 Hepatitis C Screening 09/28/2023 Social Influencers of Health Screening 09/28/2023 Depression Screening 08/30/2024 COVID-19 Vaccine (1 - 2024-2 6 season) 2025 Influenza Vaccine (#1) 2025 RSV Immunization Adult [...]
[2025-08-29 12:08] LABS: Free Prostate Spec Ag 0.5 ng/mL; Percent Free Prostate Spec Ag 10 % (calc) (>25)
== END 2025-08-27 11:46 | disposition home or self-care (01) ==
LOC: HO.LAB 11:45
PROVIDERS: PCP Family Medicine; Visit Provider Urology
DX: C61 Malignant neoplasm of prostate (principal); R97.20 Elevated prostate specific antigen [PSA]; Z12.5 Encounter for screening for malignant neoplasm of prostate
CPT/HCPCS: 36415; 84153; 84154